=== PATIENT | male | born 1945 | race Caucasian/White ===

== ENCOUNTER → 2016-10-06 | Outpatient (CLI) | payer MEDICARE, OTHER ==
[2015-05-08 15:09] VITALS: BP 116/75
[~2016-10-06] MED LIST: ATOR20TA58 PO; CHOL10002 PO; FERR325C PO; HYDR-2678 PO; IOHEXOL 180 MG/ML 10 ML VIAL. ONE; MULT-208 PO; NAPR500T8 PO; OMEP20CA9 PO; OXYC1TAB7 PO; [UNRECOGNIZED DRUG - CODE] TP; methylPREDNISolone ACETATE 40 MG/ML VIAL. ONE; methylPREDNISolone ACETATE 80 MG/ML VIAL. ONE
--- NOTE | 2016-10-07 02:32 | PAIN ---
DATE OF SERVICE: 10/06/2016 DIAGNOSES: Lumbar radiculopathy with lumbar degenerative disk disease, lumbar spinal stenosis. HISTORY OF PRESENT ILLNESS: The patient is a 70-year-old male who returns for followup status post lumbar epidural steroid injections x 3, most recently seen on 06/02/2016. The patient did very well with about a 75-80% improvement, but only for a few weeks. The patient reports the pain returned fairly quickly, still in the low back, bilateral lower extremities, slightly worse on the right than the left with tingling, burning, stabbing pain that sharp, constant and severe, becoming more constant with time, worse with walking and standing, better with sitting or lying down, awakens him from sleep; however, if he lies on his right side for more than about twice at night, the patient reports his pain is a 9 on a scale of 10 at its worse, it is 6 currently. The patient has had several injections in the past, also physical therapy and chiropractic. Pain gets better with the injections, but then returns after several weeks. The patient reports no new motor or sensory deficits, no new bowel or bladder incontinence or other complaints. PHYSICAL EXAMINATION: VITAL SIGNS: The patient's blood pressure 152/101, pulse 74, respirations 18, temperature 98.1 degrees Fahrenheit, height is 5 feet 8 inches, weight 166 pounds. GENERAL: The patient is awake, alert, oriented, appropriate, very pleasant demeanor. The patient accompanied by his spouse. HEENT: Head shows normocephalic, atraumatic. Extraocular movements are intact and symmetrical. Oral cavity, mucous membranes are moist and pink. Dentition is intact. NECK: Shows anterior throat supple without palpable lymphadenopathy noted. Swallow reflex is symmetrical. CHEST: Shows normal on inspection. Breath sounds are clear to auscultation bilaterally. HEART: Shows S1 and S2 clear. ABDOMEN: Soft, nontender, nondistended. No palpable organomegaly. No rebound or guarding demonstrated. BACK: Shows spine grossly in the midline. Lumbar paraspinous muscle shows some moderate tenderness with palpation, but only diffusely and symmetrical without evidence of atrophy or hypertrophy. The patient shows full rotational motion of the lumbar spine, both laterally as well as extension and flexion without difficulty. EXTREMITIES: Lower extremities showed deep tendon reflexes at 2+ in the patellar, 1+ tendo-calcaneus tendons and are equal. Motor exam is strong with 5/5 dorsiflexion, extension, quadriceps and hamstring flexion. Options were discussed with the patient and the patient's old chart was reviewed as his current medication regimen updated. Current review of systems updated today as well. We will proceed with a lumbar epidural steroid injection today as the first in this series with fluoroscopic guidance. Risks were again discussed including, but not limited to bleeding, infection, possibility of epidural hematoma, subsequent neurological compromise, dural puncture, headaches, spinal cord and/or nerve damage, side effects of steroid medication and poor results regarding pain control. The patient understands and wishes to proceed. The patient will return to clinic in approximately 2 weeks for followup, was counseled on return appointment, activity level and side effects to be aware of. DIAGNOSIS: Lumbar radiculopathy with lumbar degenerative disk disease, lumbar spinal stenosis. PROCEDURE: Lumbar epidural steroid injection in translaminar approach at the L4-L5 level using C-arm fluoroscopic guidance under sterile prep and drape using a local anesthetic. Medications injected are 120 mg Depo-Medrol plus 10 mL of preservative-free normal saline and 2 mL Isovue for contrast. CONDITION AT DISCHARGE: Stable. The patient tolerated procedure well, had no complications. FREDDY ROTH MD DR: KETURAH/danuta JOB#: [id number] / [id number]
== END | disposition home or self-care (01) ==
LOC: PNCL 09:12
PROVIDERS: ATTEND Anesthesiology
DX: M51.16 Intervertebral disc disorders with radiculopathy, lumbar region (principal); M48.06 Spinal stenosis, lumbar region; K21.9 Gastro-esophageal reflux disease without esophagitis; E78.00 Pure hypercholesterolemia, unspecified; M19.90 Unspecified osteoarthritis, unspecified site; D64.9 Anemia, unspecified; Z72.0 Tobacco use
CPT/HCPCS: 62323; J1030; J1040

== ENCOUNTER → 2016-10-19 | Outpatient (CLI) | payer MEDICARE, OTHER ==
[2015-05-08 15:09] VITALS: BP 116/75
--- NOTE | 2016-10-20 05:37 | PAIN ---
DATE OF SERVICE: 10/19/2016 PROGRESS NOTE FOR PAIN CLINIC DIAGNOSIS: Lumbar radiculopathy with lumbar degenerative disk disease, lumbar spinal stenosis. HISTORY OF PRESENT ILLNESS: The patient is a 70-year-old male who returns for followup status post lumbar epidural steroid injection x 1. The patient reports about 50% improvement, much better for the first week about 75% improvement, but now has come back to some extent in the low back and bilateral lower extremities, slightly worse on the right than the left, but present bilaterally. The patient reports otherwise he is doing fairly well. It is rated at a 7 on a scale of 10 at its most, 5 at its least and about a 6 on average. The patient reports it has been awakening him from sleep about every 5-6 hours at night, he has to reposition or get out of bed, change positions, take pain medication to decrease the pain, otherwise doing well, increasing his activity with greater ease and comfort, especially in the first week or so, but now the pain is returning in his low back, is described as tingling, burning and aching, as radiating pain to the lower extremities, again slightly worse on the right. The patient reports no new motor or sensory deficits, no new bowel or bladder incontinence or other complaints. PHYSICAL EXAMINATION: VITAL SIGNS: The patient's blood pressure is 140/109, pulse 74, respirations are 20, temperature is 97.8 degrees Fahrenheit, height is 5 feet 8 inches, weight is 164 pounds. GENERAL: The patient is awake, alert, oriented, appropriate, has a very pleasant demeanor. HEENT: Shows normocephalic, atraumatic. Extraocular movements are intact, symmetrical. Oral cavity, his mucous membranes are moist and pink. NECK: Shows anterior throat supple. CHEST: Shows breath sounds clear to auscultation bilaterally. HEART: Shows S1 and S2 clear. ABDOMEN: Soft, nontender, nondistended. BACK: Shows spine grossly in the midline. Lumbar paraspinous musculature shows symmetrical on inspection, with palpation shows some pmoj-sf-yooaeksj tenderness in the low lumbar distribution only, but only diffusely only in the paraspinous regions without radiation and only diffuse, no tenderness over the sacrum or sacroiliac regions. The patient does show good rotational motion of the lumbar spine, but significant tenderness with extension, but not with forward flexion. Right and left lateral rotation is intact with greater than 10 degrees without pain reported. LOWER EXTREMITIES: Show deep tendon reflexes at 2+ in the patellar and 1+ tendo calcaneus tendons, are equal. Motor exam is strong with 5/5 dorsiflexion and extension. PLAN: Options were discussed with the patient. The patient's old chart was reviewed as was his current medication regimen and updated. Current review of systems updated today as well. We will proceed with a second lumbar epidural steroid injection today in this series with fluoroscopic guidance. Risks were again discussed including, but not limited to bleeding, infection, possibility of epidural hematoma, subsequent neurological compromise, dural puncture, headaches, spinal cord and/or nerve damage, side effects of steroid medication and poor results regarding pain control. The patient understands and wishes to proceed. The patient will return to the clinic in approximately 2 weeks for followup, was counseled on his return appointment, activity level and side effects to be aware of. DIAGNOSIS: Lumbar radiculopathy with lumbar degenerative disk disease, lumbar spinal stenosis. PROCEDURE: Lumbar epidural steroid injection in translaminar approach at the L4-L5 level using C-arm fluoroscopic guidance under sterile prep and drape using local anesthetic. MEDICATIONS INJECTED: 120 mg Depo-Medrol plus 10 mL of preservative-free normal saline and 2 mL of Isovue for contrast. CONDITION AT DISCHARGE: Stable. The patient tolerated the procedure well, had no complications. The patient will follow up in approximately 2 weeks. I also discussed the patient's blood pressure is slightly elevated and has been elevated on previous visits as well, but not to this level. Will recommend following up with his primary care physician regarding this as well. The patient was counseled as to his activity level as well as side effects to be aware of with the injection today also. FREDDY ROTH MD DR: KETURAH/danuta JOB#: [id number] / [id number]
== END | disposition home or self-care (01) ==
LOC: PNCL 08:35
PROVIDERS: ATTEND Anesthesiology
DX: M51.16 Intervertebral disc disorders with radiculopathy, lumbar region (principal); M48.06 Spinal stenosis, lumbar region; E78.00 Pure hypercholesterolemia, unspecified; K21.9 Gastro-esophageal reflux disease without esophagitis; M19.90 Unspecified osteoarthritis, unspecified site; Z87.39 Personal history of other diseases of the musculoskeletal system and connective tissue; Z72.0 Tobacco use; D64.9 Anemia, unspecified; K82.9 Disease of gallbladder, unspecified
CPT/HCPCS: 62323; J1030; J1040

== ENCOUNTER → 2016-11-20 | Outpatient (CLI) | payer MEDICARE, OTHER ==
[2015-05-08 15:09] VITALS: BP 116/75
[~2016-11-20] MED LIST changes: -IOHEXOL 180 MG/ML 10 ML VIAL. ONE; -methylPREDNISolone ACETATE 40 MG/ML VIAL. ONE; -methylPREDNISolone ACETATE 80 MG/ML VIAL. ONE
--- NOTE | 2016-11-20 16:47 | KCIC ---
MRI of the lumbar spine without contrast 11/20/2016 CLINICAL HISTORY: Low back pain which radiates down both hips for the last year. TECHNIQUE: Unenhanced T1-weighted and T2-weighted sagittal and axial and inversion recovery sagittal images of the lumbar spine were obtained. FINDINGS: Minimal S-shaped curvature of the thoracolumbar spine is seen. Degenerative signal changes are seen involving all of the disks of the lumbar spine. Degenerative signal changes are seen within the marrow surrounding these discs. Loss of height of the L4-5 disc is noted. The conus medullaris is normal morphology, position, and signal characteristics. The L1-2 disc space is within normal limits. At the L3-4 disc space there is a mild generalized disc bulge. This is eccentric to the left. Degenerative changes are seen involving the facet joints bilaterally. There is mild ligamentum flavum hypertrophy bilaterally. These findings when combined result in mild central spinal canal stenosis. No neural foraminal stenosis is seen. At the L3-4 disc space there is a mild generalized disc bulge. Degenerative changes are seen involving the facet joints bilaterally. There is mild ligamentum flavum hypertrophy bilaterally. There is prominence of the posterior epidural fat. These findings when combined result in mild central spinal canal stenosis. At the L4-5 disc space there is a mild generalized disc bulge. Superimposed on this disc bulge is a central/right paracentral focal disc herniation. This measures 4 mm in AP diameter. Degenerative changes are seen involving the facet joints bilaterally. There is moderate ligamentum flavum hypertrophy bilaterally. These findings when combined result in moderate to severe right greater than left central spinal canal stenosis. No neural foraminal stenosis is seen. At the L5-S1 disc space there is a minimal generalized disc bulge. Degenerative changes are seen involving the facet joints bilaterally. These findings when combined do not result in significant central spinal canal or neural foraminal stenosis. IMPRESSION: The changes of degenerative disc disease are seen throughout the lumbar spine. These findings result in mild central spinal canal stenosis at L2-3 and L3-4 and moderate to severe right greater than left central spinal canal stenosis at L4-5. No neural foraminal stenosis is seen. Electronically signed by: Jimenez Lu MD (11/20/2016 4:44 PM) [facility]
== END | disposition home or self-care (01) ==
LOC: KCIC MRI 15:47
PROVIDERS: ATTEND Neurological Surgery
DX: M51.36 Other intervertebral disc degeneration, lumbar region (principal)
CPT/HCPCS: 72148

== ENCOUNTER → 2016-12-02 | Outpatient (CLI) | payer MEDICARE, OTHER ==
[2015-05-08 15:09] VITALS: BP 116/75
[~2016-12-02] MED LIST changes: +IOHEXOL 180 MG/ML 10 ML VIAL. ONE; +methylPREDNISolone ACETATE 40 MG/ML VIAL. ONE; +methylPREDNISolone ACETATE 80 MG/ML VIAL. ONE
--- NOTE | 2016-12-02 23:00 | PAIN ---
DATE OF SERVICE: 12/02/2016 DIAGNOSIS: Lumbar radiculopathy, lumbar degenerative disk disease, lumbar spinal stenosis. HISTORY OF PRESENT ILLNESS: The patient is a 71-year-old male who returns for followup status post lumbar epidural steroid injections x 2, last seen on 10/19/2016. The patient reports he did very well with about 50% improvement in his low back, right lower extremity pain. The pain is returning now to a near baseline levels. The patient is still planning for lumbar decompressive surgery on 12/31/2016. The patient reports the pain now is a 7 on a scale of 10 at its worst, is at 5 currently. The patient reports it is achy, shooting, tingling, stabbing, and constant in the low back and lower extremities, again worse on the right side than the left with anterior lateral thigh, posterior thigh and medial lower leg pain radiating once again. The patient reports it wakes him up from sleep occasionally, but not every night. If he repositioned or takes pain medications, he is able to get back to sleep. PHYSICAL EXAMINATION: VITAL SIGNS: Today, the patient's blood pressure 133/88, pulse 77, respirations 20, temperature 98.1 degrees Fahrenheit. Weight is 163 pounds. GENERAL: The patient is awake, alert and oriented, appropriate, is a very pleasant demeanor. HEENT: Exam shows normocephalic, atraumatic. Extraocular movements are intact and symmetrical. Oral cavity, mucous membranes are moist and pink. Dentition is intact. NECK: Shows the anterior throat supple without palpable lymphadenopathy noted. Swallow reflex is symmetrical. CHEST: Normal on inspection. Breath sounds are clear to auscultation bilaterally. CARDIOVASCULAR: S1, S2, clear. ABDOMEN: Soft, nontender, nondistended, no palpable organomegaly. No rebound or guarding demonstrated. BACK: Shows spine grossly in the midline. Lumbar paraspinal muscle shows some ymqo-wv-oyannpja tenderness diffusely in the lower lumbar distribution, but without radiation and without asymmetry. The patient's back shows good rotation of motion both laterally as well as extension and flexion. EXTREMITIES: Lower extremities show deep tendon reflexes are 2+ in the patellar, 1+ tendo-calcaneus tendons are equal. Motor exam is strong with 5/5 dorsiflexion, extension, quadriceps and hamstring flexion. Options were discussed with the patient. The patient's old chart was reviewed as his current medication regimen updated. Current review of systems was updated today as well. We will proceed with a third in the series of lumbar epidural steroid injection today with fluoroscopic guidance. Risks were again discussed including, but not limited to, bleeding, infection, possibility of epidural hematoma and subsequent neurologic compromise, dural puncture, headaches, spinal cord and/or nerve damage, side effects of steroid medications and poor results regarding pain control. The patient understands and wishes to proceed. The patient will return to clinic in approximately 2 weeks for followup, was counseled on return appointment, activity level and side effects to be aware of. DIAGNOSES: Lumbar radiculopathy with lumbar spinal stenosis, lumbar degenerative disk disease. PROCEDURE: Lumbar epidural steroid injection in translaminar approach at L4-L5 level using C-arm fluoroscopic guidance under sterile prep and drape using local anesthetic. MEDICATIONS INJECTED: Total of 120 mg of Depo-Medrol plus 10 mL of preservative-free normal saline and 2 mL of Isovue for contrast. CONDITION AT DISCHARGE: Stable. The patient tolerated procedure well, had no complications. FREDDY ROTH MD DR: KETURAH/danuta JOB#: [id number] / [id number]
== END | disposition home or self-care (01) ==
LOC: PNCL 09:36
PROVIDERS: ATTEND Anesthesiology
DX: M51.16 Intervertebral disc disorders with radiculopathy, lumbar region (principal); M48.06 Spinal stenosis, lumbar region; E78.00 Pure hypercholesterolemia, unspecified; K21.9 Gastro-esophageal reflux disease without esophagitis; M19.90 Unspecified osteoarthritis, unspecified site; Z87.39 Personal history of other diseases of the musculoskeletal system and connective tissue; Z72.0 Tobacco use
CPT/HCPCS: 62323; J1030; J1040

== ENCOUNTER → 2016-12-25 | Outpatient (CLI) | payer MEDICARE, OTHER ==
[2015-05-08 15:09] VITALS: BP 116/75
[~2016-12-25] MED LIST changes: +DOCU-109 PO; -IOHEXOL 180 MG/ML 10 ML VIAL. ONE; +METH-38 PO; -methylPREDNISolone ACETATE 40 MG/ML VIAL. ONE; -methylPREDNISolone ACETATE 80 MG/ML VIAL. ONE
--- NOTE | 2016-12-25 15:01 | EKG ---
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
[2016-12-25 15:32] LABS: BASO # 0.1 x10^3/uL (0.0-0.2); BASO % 1 % (0-3); EOS % 4 % (0-3); HEMATOCRIT 42.8 % (39.0-53.0); HEMOGLOBIN 14.1 g/dL (13.0-17.5); LYMPH % 29 % (24-48); MEAN CORPUSCULAR HEMOGLOBIN 32 pg (25-35); MEAN CORPUSCULAR HGB CONC 33 g/dL (31-37); MEAN CORPUSCULAR VOLUME 95 fL (79-100); MONO % 9 % (0-9); NEUT % 57 % (31-73); PLATELET COUNT 150 x10^3/uL (140-400); RED BLOOD COUNT 4.48 x10^6/uL (4.30-5.70); RED CELL DISTRIBUTION WIDTH 15.2 % (11.5-14.5); WHITE BLOOD COUNT 6.8 x10^3/uL (4.0-11.0)
[2016-12-25 15:49] LABS: ALBUMIN 3.5 g/dL (3.4-5.0); ALBUMIN/GLOBULIN RATIO 1.2 (1.0-1.7); CALCIUM 8.6 mg/dL (8.5-10.1); CREATININE 0.9 mg/dL (0.7-1.3); GFR 83.7; POTASSIUM 3.7 mmol/L (3.5-5.1); TOTAL BILIRUBIN 0.9 mg/dL (0.2-1.0); TOTAL PROTEIN 6.5 g/dL (6.4-8.2)
== END | disposition home or self-care (01) ==
LOC: SURGPAT 13:46
PROVIDERS: ATTEND Neurological Surgery
DX: R62.7 Adult failure to thrive (principal)
CPT/HCPCS: 36415; 80053; 85025; 87641; 93005

== ENCOUNTER 2016-12-31 07:12 | Day surgery (SDC) | payer MEDICARE, OTHER ==
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
[~2016-12-31] VITALS: Ht 203.2 cm; Wt 73.9 kg
[~2016-12-31 07:12] MED LIST changes: +BACITRACIN 50,000 UNIT in IV NORMAL SALINE 1000ML BAG 1,000 ML IRR ONE; -DOCU-109 PO; +GELATIN SPONGE SIZE 100. ONE; +HYDROmorphone 2 MG/ML VIAL IV PRN; +IV RINGERS,LACTATED 1000ML 1,000 ML IV SCH; +KETOROLAC 60 MG/2 ML INJ FOR OR. ONE; +LIDOCAINE 1% 1 ML SYRINGE. ID PRN; -METH-38 PO; +MORPHINE SULFATE 2 MG/ML DISP.SYRIN. IV PRN; +ONDANSETRON PF 4 MG/2 ML VIAL. IV PRN; +PROCHLORPERAZINE 10 MG/2 ML VIAL. IV PRN; +THROMBIN TOPICAL 20,000 UNIT SPRAY.SYRN KIT TP ONE; +fentaNYL PF VIAL 100 MCG/2 ML VIAL IV PRN
[2016-12-31] MEDS ORDERED: PHENYLEPHRINE 10 MG/ML VIAL. ONE (07:45)
[2016-12-31] MEDS ORDERED: PROPOFOL 20 ML IV ONE (07:45)
[2016-12-31] MEDS ORDERED: PROPOFOL 50 ML IV ONE (07:45)
[2016-12-31] MEDS ORDERED: LIDOCAINE 2% PF Vial for OR 5 ML VIAL. ONE (07:45)
[2016-12-31] MEDS ORDERED: DEXAMETHASONE SOD PHOS 20 MG/5 ML VIAL. ONE (07:45)
[2016-12-31] MEDS ORDERED: ONDANSETRON PF 4 MG/2 ML VIAL. ONE (07:45)
[2016-12-31] MEDS ORDERED: MIDAZOLAM HCL/PF 2 MG/2 ML VIAL. ONE (07:46)
[2016-12-31] MEDS ORDERED: REMIFENTANIL 2 MG VIAL. IV ONE (07:46)
[2016-12-31] MEDS ORDERED: MINERAL OIL/PETROLATUM,WHITE OPHTH OINT 3.5GM TUBE. ONE (07:46)
[2016-12-31] MEDS ORDERED: 0.9 % SODIUM CHLORIDE 50 ML VIAL. IJ ONE (07:47)
[2016-12-31] MEDS ORDERED: ROCURONIUM 100 MG/10 ML VIAL. ONE (08:10)
[2016-12-31] MEDS ORDERED: GLYCOPYRROLATE 1 MG/5 ML VIAL. ONE (09:04)
[2016-12-31] MEDS ORDERED: BUPIVAC MPF-EPI 0.5%-1:200000 30 ML VIAL. INJ ONE (09:39)
[2016-12-31] MEDS ORDERED: DESFLURANE > 120 MINUTES IH ONE (10:04)
--- NOTE | 2016-12-31 10:56 | DISCH ---
DISCHARGE INSTRUCTIONS Condition on Discharge Condition on Discharge: Stable Activity After Discharge Activity Instructions for Disc: Activity as tolerated, Avoid exertion Other activity instructions: no driving for a week Bathing Instructions: Shower-keep dressing dry Lifting Instructions after Dis: No heavy lifting, No pulling or pushing, Do not lift >10 pounds Driving Instructions after Dis: Do not drive Diet after Discharge Additional Diet Restrictions: resume home diet Wound Incision Care Wound/Incision Care: Ice to area for comfort Other wound/incision instructi: may remove dressing in 48 hrs if dry then may shower- no soaking Contacting the after DC Call your doctor for: Concerns you may have Follow-Up Follow up with: Dr. Jacob's nurse in 2 weeks [phone] MARYBETH JACOB MD Dec 31, 2016 10:55
[2016-12-31] MEDS ORDERED: DOCU-109 PO (10:59)
[2016-12-31] MEDS ORDERED: METH-38 PO (10:59)
[2016-12-31] MEDS ORDERED: fentaNYL PF VIAL 100 MCG/2 ML VIAL ONE (11:06)
[2016-12-31] MEDS: fentaNYL PF VIAL 100 MCG/2 ML VIAL IV PRN ×2 (11:12→11:26)
[2016-12-31] MEDS ORDERED: oxyCODONE/APAP 5/325 1 TAB TABLET PO ONE (11:45)
--- NOTE | 2016-12-31 11:56 | OP ---
DATE OF SURGERY: 12/31/2016 PREOPERATIVE DIAGNOSES: Lumbar spinal stenosis with lateral recess narrowing and disc bulging L4-L5 with right lumbar radiculopathy. POSTOPERATIVE DIAGNOSES: Lumbar spinal stenosis with lateral recess narrowing and disc bulging L4-L5 with right lumbar radiculopathy. OPERATION PERFORMED: Right direct laminectomy and discectomy, L4-L5. The operation was done with EMG monitoring, fluoroscopy, microscopic dissection. SURGEON: Quique Jacob M.D. WELLNESS RN: TONY Lynch assisted with the surgery. She assisted with the exposure, the microdiscectomy and decompression as well as the closure. OPERATIVE INDICATIONS: The patient is a very pleasant 71-year-old man who developed intractable back and right greater than left leg pain and was found on imaging studies to have the above-mentioned findings. He went through epidural steroid injections and chiropractic treatment without long-term relief. After reviewing the images, I recommended lumbar microsurgery at L4-L5. I discussed with him the surgery and the risks, the technique and the expected postoperative course and he wished to go ahead. DESCRIPTION OF PROCEDURE: Following general endotracheal anesthesia, the patient was positioned prone on the Edenilson table. His lumbar region was prepped and draped in the standard fashion. MELLISA hose and AV impulse boots were applied for DVT prophylaxis. A microscope was draped. Fluoroscopy was draped and brought into field. Monitoring was established. Ancef 2 grams was given less than 1 hour prior to initiation of surgery. Using fluoroscopic guidance, an incision was made directly over the L4-L5 interspace. I dissected down through the skin and subcutaneous tissue and reflected the paraspinal muscles and brought in a [place] micro disc retractor. I brought in a high speed air drill and using the microscope with microscopic technique, I burred down a generous hemilaminotomy. I then tilted the table away from wv and drilled across the midline and decompressed to the right side. I then began to trim with the thickened ligamentum flavum, working from medial to lateral. I did drill a foraminotomy and then peeled away the ligamentum flavum exposing the exiting root. There was a significant disc bulge, which was soft and I incised the annulus and ligament laterally and gently retracted the root medially. There were few epidural veins, which were coagulated and divided with micro scissors. I used the micropituitary followed by the Gus pituitary and began to work from a lateral to medial and removed chronic herniated disc material which was scarred to the undersurface of the annulus and I also removed some of the heaped up bone and thickened endplate material and began to work medially. I pulled multiple fragments and out from the disc space and a few subligamentous pieces of disc and as I worked, the region became very well decompressed. I enlarged my foraminotomy. I further undercut the midline by tilting the bed away again and fully decompress the entire region, I did use a bone wax intermittently for any bone bleeding and the bipolar cautery was used judiciously for any epidural veins. I irrigated copiously, removed the retractor, obtained hemostasis in the muscle, irrigated again and then I closed the wound in layers with absorbable suture and skin was closed with 4-0 subcuticular stitch. The operation went very well and the patient taken in stable condition to recovery. I was quite pleased with the surgery. QUIQUE JACOB MD DR: PADMAJA/danuta JOB#: [id number] / [id number] ALFRED
[2016-12-31 12:24] VITALS: BP 111/73
--- NOTE | 2017-01-02 00:02 | PATHOLOGY ---
PATHOLOGY REPORT * * * * * * * * FINAL DIAGNOSIS: "Lumbar decompression and disc", removal: - Fragments of fibrocartilage with degenerative changes. - Fragments of unremarkable fibromuscular tissue and bone. ([facility]/db; 01/01/2017) REPORT ELECTRONICALLY SIGNED BY: Aline Pace M.D. DATE/TIME: 01/01/2017 15:25 * * * * * * * * GROSS PATHOLOGY: Received in formalin labeled "Bev Le, lumbar decompression and disc" are multiple segments of loyola, rubbery, and gritty tissue admixed with bone. The specimen measures 2.7 x 1.5 x 0.6 cm in aggregate dimensions. The tissue is submitted representatively in cassette A1, following decalcification. ([facility]; 12/31/16) INITIAL CPT CODE(S): A; 00716 Professional services performed by [facility] [place] [address] Technical services performed by [facility] at [address] [place] [address], [facility] [address], [place] [address]. SPECIMEN(S) RECEIVED: A.Lumbar decompression and disc CLINICAL HISTORY: Lumbar stenosis, radiculopathy PATIENT: BEV LE /AGE: 6 1945 (Age: 71) PATIENT #: [id number] ALT CASE #: SPECIMEN COLLECTION DATE: 12/31/2016 SPECIMEN RECEIVED DATE: 12/31/2016 [facility] - [address] [place] [address] - PHONE: [phone] * * * END OF REPORT * * *
== END 2016-12-31 12:59 | disposition home or self-care (01) ==
LOC: SURG 07:12
PROVIDERS: ATTEND Neurological Surgery
DX: M51.16 Intervertebral disc disorders with radiculopathy, lumbar region (principal); M48.06 Spinal stenosis, lumbar region; E78.00 Pure hypercholesterolemia, unspecified; K21.9 Gastro-esophageal reflux disease without esophagitis; M19.91 Primary osteoarthritis, unspecified site; Z72.89 Other problems related to lifestyle; Z86.69 Personal history of other diseases of the nervous system and sense organs; Z87.891 Personal history of nicotine dependence
CPT/HCPCS: 63030; 76000; 97161; J0690; J1100; J1885; J2250; J2405; J2704; J3010; J3490; J7030; 88304; 88311; J2001

== ENCOUNTER → 2017-03-24 | Outpatient (CLI) | payer MEDICARE, OTHER ==
[~2017-03-24] MED LIST changes: -BACITRACIN 50,000 UNIT in IV NORMAL SALINE 1000ML BAG 1,000 ML IRR ONE; +DOCU-109 PO; -GELATIN SPONGE SIZE 100. ONE; -HYDROmorphone 2 MG/ML VIAL IV PRN; -IV RINGERS,LACTATED 1000ML 1,000 ML IV SCH; -KETOROLAC 60 MG/2 ML INJ FOR OR. ONE; -LIDOCAINE 1% 1 ML SYRINGE. ID PRN; +METH-38 PO; -MORPHINE SULFATE 2 MG/ML DISP.SYRIN. IV PRN; -ONDANSETRON PF 4 MG/2 ML VIAL. IV PRN; -PROCHLORPERAZINE 10 MG/2 ML VIAL. IV PRN; -THROMBIN TOPICAL 20,000 UNIT SPRAY.SYRN KIT TP ONE; -fentaNYL PF VIAL 100 MCG/2 ML VIAL IV PRN
--- NOTE | 2017-03-24 12:09 | KCIC ---
History: Back pain. Comparison: MR lumbar spine November 20, 2016. Findings: Lateral flexion and lateral extension views of the lumbar spine were obtained. There is no spondylolisthesis with flexion or extension. Multilevel degenerative disc disease is seen. Impression: 1. Multilevel degenerative disc disease. 2. No evidence of spondylolisthesis. Electronically signed by: Todd Bynum MD (03/24/2017 12:06 PM) [id number]
== END | disposition home or self-care (01) ==
LOC: KCIC 11:30
PROVIDERS: ATTEND Neurological Surgery
DX: M51.36 Other intervertebral disc degeneration, lumbar region (principal)
CPT/HCPCS: 72100

== ENCOUNTER → 2017-06-25 | Outpatient (CLI) | payer MEDICARE ==
[~2017-06-25] MED LIST changes: -ATOR20TA58 PO; +BUPIVACAINE MPF 0.25% 10 ML VIAL.; -CHOL10002 PO; -DOCU-109 PO; -FERR325C PO; -HYDR-2678 PO; +IOHEXOL 180 MG/ML 10 ML VIAL.; -METH-38 PO; -MULT-208 PO; -NAPR500T8 PO; -OMEP20CA9 PO; -OXYC1TAB7 PO; -[UNRECOGNIZED DRUG - CODE] TP; +methylPREDNISolone ACETATE 40 MG/ML VIAL.; +methylPREDNISolone ACETATE 80 MG/ML VIAL.
== END ==
LOC: PNCL 09:58
DX: M47.897 Other spondylosis, lumbosacral region (principal); M47.817 Spondylosis without myelopathy or radiculopathy, lumbosacral region (principal); M48.061 Spinal stenosis, lumbar region without neurogenic claudication; M51.16 Intervertebral disc disorders with radiculopathy, lumbar region; E78.00 Pure hypercholesterolemia, unspecified; K21.9 Gastro-esophageal reflux disease without esophagitis; M19.90 Unspecified osteoarthritis, unspecified site; Z87.891 Personal history of nicotine dependence; M54.5 Low back pain; Z98.890 Other specified postprocedural states; Z86.2 Personal history of diseases of the blood and blood-forming organs and certain disorders involving the immune mechanism
CPT/HCPCS: 64493; 64494; J1030; J1040; J3490; Q9965

== ENCOUNTER → 2017-07-07 | Outpatient (CLI) | payer MEDICARE | LOC: PNCL 09:06 | DX: M51.16 Intervertebral disc disorders with radiculopathy, lumbar region (principal); M48.061 Spinal stenosis, lumbar region without neurogenic claudication; M47.817 Spondylosis without myelopathy or radiculopathy, lumbosacral region | CPT/HCPCS: 64493; 64494; J1030; J1040; J3490; Q9965 ==

== ENCOUNTER → 2017-09-02 | Outpatient (CLI) | payer MEDICARE ==
[~2017-09-02] MED LIST changes: -IOHEXOL 180 MG/ML 10 ML VIAL.; +LIDOCAINE 1% PF 2 ML VIAL.; +LIDOCAINE 2% PF Vial for OR 5 ML VIAL.
== END | disposition home or self-care (01) ==
LOC: PNCL 13:11
DX: M51.16 Intervertebral disc disorders with radiculopathy, lumbar region (principal); M48.061 Spinal stenosis, lumbar region without neurogenic claudication; M47.817 Spondylosis without myelopathy or radiculopathy, lumbosacral region; E78.00 Pure hypercholesterolemia, unspecified; K21.9 Gastro-esophageal reflux disease without esophagitis; M19.90 Unspecified osteoarthritis, unspecified site; Z72.89 Other problems related to lifestyle; Z98.890 Other specified postprocedural states; Z87.891 Personal history of nicotine dependence; D64.9 Anemia, unspecified
CPT/HCPCS: 64635; 64636; J1030; J1040; J3490

== ENCOUNTER → 2017-09-30 | Outpatient (CLI) | payer MEDICARE, OTHER | END | disposition home or self-care (01) | LOC: PNCL 10:35 | DX: M51.16 Intervertebral disc disorders with radiculopathy, lumbar region (principal); M48.061 Spinal stenosis, lumbar region without neurogenic claudication; M47.897 Other spondylosis, lumbosacral region | CPT/HCPCS: G0463 ==

== ENCOUNTER → 2017-12-13 | Outpatient (CLI) | payer MEDICARE, OTHER ==
[~2017-12-13] MED LIST changes: +ATOR20TA58 PO; -BUPIVACAINE MPF 0.25% 10 ML VIAL.; +CHOL10002 PO; +DOCU-109 PO; +FERR325C PO; +GABA-586 PO; +HYDR-2678 PO; -LIDOCAINE 1% PF 2 ML VIAL.; -LIDOCAINE 2% PF Vial for OR 5 ML VIAL.; +METH-38 PO; +MULT-208 PO; +NAPR500T8 PO; +OMEP20CA9 PO; +OXYC1TAB7 PO; +ZOLPIDEM 5 MG TABLET. PO ONE; +[UNRECOGNIZED DRUG - CODE] TP; -methylPREDNISolone ACETATE 40 MG/ML VIAL.; -methylPREDNISolone ACETATE 80 MG/ML VIAL.
--- NOTE | 2017-12-14 11:54 | SLEEP ---
DATE OF STUDY: 12/13/2017 ATTENDING PHYSICIAN: Dr. Todd Cotto. The patient is a 72-year-old who weighs 167 pounds with a BMI of 25. The patient's [place] score was 6. The patient underwent sleep study at [facility]. This was a diagnostic study. During the night study, the patient spent 433 minutes in bed and slept for 394 minutes with a sleep efficiency of 91%. Sleep latency was 27 minutes with a REM latency of 173 minutes. Overall, sleep architecture showed increased stage 1 sleep, normal stage 2 sleep, increased slow wave, and reduced REM sleep. During the night study, the patient had 23 obstructive apneas, 33 mixed apneas, 12 central apneas and 94 hypopneas. The patient's apnea-hypopnea index was 25 per hour, the supine index of 31 per hour, and the REM index of 76 per hour. EKG monitoring revealed normal sinus rhythm, average heart rate was 76 beats per minute, no sustained arrhythmias were observed. Nocturnal oximetry study revealed an average oxygen saturation of 92%, the lowest of 59%. 90% of time, oxygen saturation remained between 80% and 89%. The desaturation was severe during REM sleep. PLMs were not seen. Due to low AHI, the patient did not meet the split night criteria for CPAP initiation. IMPRESSION: 1. Moderate sleep apnea-hypopnea syndrome with worsening during supine and REM sleep. 2. Nocturnal hypoxia which was worse during REM sleep. This is related to obstructive sleep apnea. 3. No clinically significant PLMs. RECOMMENDATIONS: 1. The patient would benefit from return to the sleep lab for CPAP titration study. 2. Once optimum CPAP pressure is achieved, then follow up in 4-6 weeks to assess compliance with CPAP and to document clinical improvement. 3. 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 4. Caution regarding driving until symptoms of sleep apnea resolve with the above recommendations. NOLVIA JOHNSON MD DR: JONO/danuta JOB#: [id number] / [id number] TODD Gonzalez MD
== END | disposition home or self-care (01) ==
LOC: SLPLAB 18:27
PROVIDERS: ATTEND Family Medicine
DX: G47.33 Obstructive sleep apnea (adult) (pediatric) (principal); G47.34 Idiopathic sleep related nonobstructive alveolar hypoventilation; E78.5 Hyperlipidemia, unspecified; E78.00 Pure hypercholesterolemia, unspecified; K21.9 Gastro-esophageal reflux disease without esophagitis; Z86.2 Personal history of diseases of the blood and blood-forming organs and certain disorders involving the immune mechanism; Z87.891 Personal history of nicotine dependence; Z87.39 Personal history of other diseases of the musculoskeletal system and connective tissue; Z86.69 Personal history of other diseases of the nervous system and sense organs
CPT/HCPCS: 95810

== ENCOUNTER → 2019-03-16 | Outpatient (CLI) | payer MEDICARE, OTHER ==
[~2019-03-16] MED LIST changes: -GABA-586 PO; +GABA300C18 PO; +IOHEXOL 180 MG/ML 10 ML VIAL. ONE; +OMEP20CA10 PO; -OMEP20CA9 PO; -ZOLPIDEM 5 MG TABLET. PO ONE; +methylPREDNISolone ACETATE 40 MG/ML VIAL. ONE; +methylPREDNISolone ACETATE 80 MG/ML VIAL. ONE
--- NOTE | 2019-03-16 13:18 | PAIN ---
DATE OF SERVICE: 03/16/2019 PROGRESS NOTE FOR PAIN CLINIC DIAGNOSES: 1. Lumbar radiculopathy with lumbar spinal stenosis and lumbar degenerative disk disease. 2. Cervical radiculopathy with cervical degenerative disk disease. HISTORY OF PRESENT ILLNESS: The patient is a 73-year-old male who returns for followup status post cervical epidural steroid injection x 1 on 11/21/2018. The patient reports no significant increase or decrease in pain. He has been out of town for several months, but is back now with some significant pain in the base of the neck and especially in the left upper extremity and shoulder, some on the right as well, but mostly on the left side radiating to the upper extremity with the anterior deltoid, anterior biceps into the forearm, which has a warm hot sensation, also aching and tingling with burning and becoming more constant, radiating with activity, no loss of function or weakness of the arm, but significant pain in the base of neck and shoulders, especially on the left side. The patient reports it is an 8 on a scale of 10 at its worst over the past week, 7 on average, 5 at its least and is a 5 today. The patient reports no new motor or sensory deficits, does not generally awaken him from sleep at night. No new motor or sensory changes. PHYSICAL EXAMINATION: VITAL SIGNS: He has blood pressure of 146/100, pulse 76, respirations 18, temperature 98.2 degrees Fahrenheit, height is 5 feet 8 inches, weight is 167 pounds. GENERAL: The patient is awake, alert, oriented, appropriate, very pleasant demeanor. HEENT: Shows normocephalic, atraumatic. Extraocular movements are intact and symmetrical. Oral cavity: Mucous membranes moist and pink. Dentition is intact. NECK: Shows anterior throat supple without palpable lymphadenopathy noted. Swallow reflex symmetrical. CHEST: Shows normal on inspection. Breath sounds are clear to auscultation bilaterally. HEART: Shows S1, S2 clear. No murmurs auscultated. ABDOMEN: Soft, nontender, nondistended. No palpable organomegaly is noted. No rebound or guarding demonstrated. BACK: Shows spine grossly in the midline. Normal-appearing thoracic kyphosis and cervical lordotic curvature. Cervical paraspinous muscle shows symmetrical on inspection and on palpation shows some moderate tenderness diffusely bilaterally, but only diffusely in the inferior aspect of the cervical paraspinous musculature and superior medial trapezius bilaterally, more on the left than the right. Full rotational motion is maintained both laterally greater than 45 degrees closer to 90 degrees as well as full extension, full forward flexion without significant difficulty. EXTREMITIES: Upper extremities show deep tendon reflexes at 2+ in the biceps and triceps tendons. Motor exam is approximately 5/5 with digital media sales consultant strength bilaterally and 4/5 with left biceps and tricep flexion and 5/5 on the right. Peripheral pulses are 2+ radial. No peripheral edema is noted bilaterally. Options were discussed with the patient. The patient's old chart was reviewed as his current medication regimen updated. Current review of systems updated today as well. We will proceed with a cervical epidural steroid injection today as a first in the series with fluoroscopic guidance. Risks were again discussed including, but not limited to bleeding, infection, possibility of epidural hematoma, subsequent neurological compromise, dural puncture, headaches, spinal cord and/or nerve damage, side effects of steroid medication and poor results regarding pain control. The patient understands and wished to proceed. The patient will return to clinic in approximately 2 weeks for followup. She was counseled on return appointment, activity level and side effects to be aware. I will also order MRI scan of the cervical spine today if he has not had one of cervical spine. He has significant radicular symptoms in the left upper extremity. DIAGNOSIS: Cervical radiculopathy with cervical degenerative disk disease. PROCEDURE: Cervical epidural steroid injection, translaminar approach C6-C7 level using C-arm fluoroscopic guidance under sterile prep and drape using local anesthetic. MEDICATION INJECTED: A total of 120 mg of Depo-Medrol plus 5 mL of preservative-free normal saline and 2 mL of contrast. CONDITION AT DISCHARGE: Stable. The patient tolerated procedure well, had no complications. FREDDY ROTH MD DR: KETURAH/danuta JOB#: [id number] / [id number]
== END ==
LOC: PNCL 09:07
PROVIDERS: ATTEND Anesthesiology
DX: M50.123 Cervical disc disorder at C6-C7 level with radiculopathy (principal); M51.16 Intervertebral disc disorders with radiculopathy, lumbar region; M48.061 Spinal stenosis, lumbar region without neurogenic claudication
CPT/HCPCS: 62321; J1030; J1040; Q9965

== ENCOUNTER → 2019-03-20 | Outpatient (CLI) | payer MEDICARE, OTHER ==
[~2019-03-20] MED LIST changes: -IOHEXOL 180 MG/ML 10 ML VIAL. ONE; -methylPREDNISolone ACETATE 40 MG/ML VIAL. ONE; -methylPREDNISolone ACETATE 80 MG/ML VIAL. ONE
--- NOTE | 2019-03-20 09:12 | KCIC ---
MRI Cervical Spine Without Contrast History: Cervical radiculopathy, neck pain, pain in the upper extremities bilaterally Technique: Multiplanar, multi sequential noncontrast MR imaging was performed of the cervical spine. Comparison: None Findings: There is nonexpansile T2 and STIR hyperintense signal of the cervical cord more eccentric to the left at C5 through C6-7 at which there is relative thinning of the cord, also prominence of the central canal of the cord at C7 about 0.2 cm in axial dimension and at C5-6 about 0.1 cm maximal axial dimension. There is mild dextroscoliosis of the cervical spine. Cervical vertebral body stature is maintained. There is negligible anterior spondylolisthesis at C7-T1. There is mild reversal of the lordotic curvature centered near C4-5. There is fairly advanced degenerative disc disease C4-5, moderate to severe degenerative disc disease C5-6, C6-7, and C3-4. There is prominent edema of the C3 vertebral body extending to the inferior endplate more eccentric to the left, mild edema of the left superior C4 vertebral body extending to the endplate. There is no fluid in the intervertebral disc spaces. There is degenerative endplate change C4-C5 and C6-7. C2-C3: Neural foramina and spinal canal are adequate. C3-C4: There is minimal disc osteophyte complex and bulge. Central canal is minimally narrowed about 9 mm with a somewhat greater degree of mild left lateral recess stenosis. There is left facet and uncovertebral degenerative change. There is fairly severe narrowing of the left neural foramen, right neural foramen minimally narrowed. C4-C5: There is minimal disc osteophyte complex. Central canal is borderline about 10 mm. There is facet degenerative greater on the left. There is bilateral uncovertebral degenerative change. There is likely [id number] narrowing of the right neural foramen, left neural foramen not significantly narrowed. C5-C6: There is disc osteophyte complex and buckling of the ligamentum flavum, central canal narrowed to about 6-7 mm. There is uncovertebral degenerative change bilaterally. There is left greater than right facet degenerative change. There is fairly severe neural foramina compromise bilaterally. C6-C7: There is minimal disc osteophyte complex. Central canal is minimally narrowed about 9 mm. There is bilateral facet degenerative change. There is uncovertebral degenerative change greater on the right. There is fairly severe narrowing of the right neural foramen, mild narrowing on the left. C7-T1: There is very shallow posterior protrusion. There is buckling of the ligamentum flavum. Central canal is borderline about 10 mm. There is bilateral facet degenerative change. Right neural foramen is overall adequate.. There is mild narrowing of the left neural foramen. Impression: 1. There is spinal stenosis on the order of 6 to 7 mm at C5-6, mild spinal stenosis C6-7 and C3-4 as described. 2. There is multilevel significant cervical degenerative disc disease greatest C3-4 through C6-7. There is edema of the C3-4 endplates more eccentric to the left more likely reactive/degenerative in etiology. 3. There is multilevel facet and uncovertebral degenerative change contributing to multilevel cervical neural foramina compromise, more significant narrowing on the right at C6-7, on the left at C3-C4, and bilaterally at C5-6. 4. There is nonexpansile increased T2 and STIR signal of the cord which is more atrophic on the left centered near C5-C6 which is probably due to myelomalacia. 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 Electronically signed by: Santos Ma MD (03/20/2019 9:09 AM) [email or web address]
== END ==
LOC: KCIC MRI 07:45
PROVIDERS: ATTEND Anesthesiology
DX: M50.123 Cervical disc disorder at C6-C7 level with radiculopathy (principal); M54.02 Panniculitis affecting regions of neck and back, cervical region
CPT/HCPCS: 72141

== ENCOUNTER → 2019-04-03 | Outpatient (CLI) | payer MEDICARE, OTHER ==
[~2019-04-03] MED LIST changes: +OMEP-229 PO; -OMEP20CA10 PO
--- NOTE | 2019-04-03 12:59 | KCIC ---
Upper GI with small bowel series HISTORY: Early satiety for one year. No pain. Images: 17 Fluoroscopy time: 6 minutes 11 seconds. FINDINGS: Pulmonary film demonstrates severe retained stool throughout the colon, compatible with constipation. Surgical clips in the right upper quadrant. Thick and thin barium was administered. Mild tertiary contractions are identified in the esophagus. No evidence of fixed filling defect or stricture. Small hiatal hernia is identified. Mild gastroesophageal reflux was observed during the exam. Moderate size diverticulum is identified arising from the medial wall of the descending duodenum. A smaller diverticulum is identified at the duodenal jejunal junction. The stomach and duodenum are difficult to profile, presumably due to overlapping components. No definite filling defect. Transit through the small bowel is slightly delayed, reaching the cecum at 130 minutes. No significant small bowel dilatation. Manual fluoroscopy of small bowel loops during transit demonstrates no fixed or ankle loop. Terminal ileum also appeared within normal limits at fluoroscopy. No abnormal flow pattern is seen. IMPRESSION: 1. Mild gastroesophageal reflux. 2. Tertiary esophageal contractions. 3. Diverticula noted at the duodenum and duodenal jejunal junction. Electronically signed by: Todd Patricio MD (04/03/2019 12:56 PM) [id number]
--- NOTE | 2019-04-03 13:47 | KCIC ---
Complete abdominal ultrasound 04/03/2019 9:00 AM Clinical History: Early satiety Technique: Ultrasound examination of the abdomen was performed, and multiple static images were submitted for review. Comparison: None Findings: The pancreas, aorta, and IVC are probably obscured by gas filled bowel. The gallbladder is surgically absent. The common bile duct measures 5 mm in diameter which is within normal limits. The liver measures 16.2 cm longitudinally. The liver is normal in echotexture. No intrahepatic biliary ductal dilatation is seen. No focal hepatic lesions are identified. The spleen is normal in appearance measuring 10 cm. The bilateral kidneys are normal in appearance without evidence of obstructive uropathy, nephrolithiasis, or focal renal lesion. Right kidney measures 9.4 cm in length. Left kidney measures 10.3 cm in length. Impression: 1. No sonographic evidence of acute intra-abdominal abnormality 2. Prior cholecystectomy Electronically signed by: Rizwan Edouard MD (04/03/2019 1:44 PM) [id number]
== END | disposition home or self-care (01) ==
LOC: KCIC US 08:35
PROVIDERS: ATTEND Family Medicine
DX: K44.9 Diaphragmatic hernia without obstruction or gangrene (principal); K21.9 Gastro-esophageal reflux disease without esophagitis; K57.30 Diverticulosis of large intestine without perforation or abscess without bleeding; K56.41 Fecal impaction; Z90.49 Acquired absence of other specified parts of digestive tract; K22.8 Other specified diseases of esophagus
CPT/HCPCS: 74245; 76700

== ENCOUNTER → 2019-05-03 | Outpatient (CLI) | payer MEDICARE, OTHER ==
[~2019-05-03] MED LIST changes: +IOHEXOL 180 MG/ML 10 ML VIAL. ONE; -OMEP-229 PO; +OMEP20CA16 PO; +methylPREDNISolone ACETATE 40 MG/ML VIAL. ONE; +methylPREDNISolone ACETATE 80 MG/ML VIAL. ONE
--- NOTE | 2019-05-04 01:05 | PAIN ---
DATE OF SERVICE: 05/03/2019 PROGRESS NOTE FOR PAIN CLINIC DIAGNOSES: 1. Lumbar radiculopathy with lumbar spinal stenosis, lumbar degenerative disk disease, lumbar spondylosis. 2. Cervical radiculopathy with cervical degenerative disk disease. HISTORY OF PRESENT ILLNESS: The patient is a 73-year-old male who returns for followup status post previous cervical epidural steroid injection, most recently 03/16/2019, very good results, near 100% improvement, even later that day was doing much better. The patient reports the pain began to return now over the past 3-4 weeks. The patient reports the pain is returning in the base of the neck and shoulders, worse on the left than the right as it was previously, but not as bad as it was prior to the last injection. The patient reports no new motor or sensory deficits, no new changes, but the pain has been returning now, worse with lifting using his upper extremities over his head, repetitive motions, weightbearing, rotational motion of cervical spine and extension of the cervical spine is mildly tender as well. The patient reports it is a 9 on a scale of 10 at its worst in the past week, 7 on average, 5 at its least and is a 5 today. The patient reports it is aching, tingling, radiating, becoming more constant, especially on the left side, but without any loss of strength. PHYSICAL EXAMINATION: VITAL SIGNS: The patient's blood pressure is 143/84, pulse 81, respirations 16, temperature 97.3 degrees Fahrenheit, height is 5 feet 8 inches, weight is 167 pounds. GENERAL: The patient is awake, alert, oriented, appropriate, very pleasant demeanor. HEENT: Shows normocephalic, atraumatic. Extraocular movements are intact and symmetrical. Oral cavity: Mucous membranes moist and pink. Dentition is intact. NECK: Shows anterior throat supple without palpable lymphadenopathy noted. Swallow reflex symmetrical. CHEST: Shows normal on inspection. Breath sounds clear to auscultation bilaterally. HEART: Shows S1, S2 clear. No murmurs auscultated. ABDOMEN: Soft, nontender, nondistended. BACK: Shows spine grossly in the midline, normal-appearing cervical lordotic curvature and thoracic kyphotic curvature, some flattening of lumbar lordotic curvature with well-healed surgical scar noted. Lumbar paraspinous muscle shows symmetrical on inspection. Cervical paraspinous muscle shows symmetrical on inspection, with palpation of the cervical distribution shows moderate tenderness diffusely, bilaterally going diffusely without significant radiation. The patient has good rotational motion of cervical spine, both laterally as well as extension and flexion. The patient's trapezius muscle shows some mild tenderness, more on the left than the right in the superior medial and lateral trapezius, but not with any trigger points or radiation of pain. EXTREMITIES: The patient's upper extremities show deep tendon reflexes 2+ in the biceps, triceps tendons. Motor exam is strong with 5/5 food and beverage checker strength, bicep and tricep flexion on the right and 4 out of 5 with food and beverage checker strength on the left. Peripheral pulses are 2+ radial distribution. No peripheral edema is noted bilaterally. Options were discussed with the patient. The patient's old chart was reviewed as his current medication regimen updated. Current review of systems updated today as well. We will proceed with a third in the series of cervical epidural steroid injection today with fluoroscopic guidance. Risks were again discussed including, but not limited to bleeding, infection, possibility of epidural hematoma, subsequent neurological compromise, dural puncture, headaches, spinal cord and/or nerve damage, side effects of steroid medication and poor results regarding pain control. The patient understands and wished to proceed. The patient will return to clinic in approximately 2 weeks for followup. She was counseled as to return appointment, activity level and side effects to be aware of. DIAGNOSES: Cervical radiculopathy with cervical degenerative disk disease. PROCEDURE: Cervical epidural steroid injection, translaminar approach C6-C7 level using C-arm fluoroscopic guidance under sterile prep and drape using local anesthetic. MEDICATION INJECTED: A total of 120 mg Depo-Medrol plus 5 mL of preservative-free normal saline and 2 mL of contrast. CONDITION AT DISCHARGE: Stable. The patient tolerated procedure well, had no complications. FREDDY ROTH MD DR: KETURAH/danuta JOB#: [id number] / [id number]
== END ==
LOC: PNCL 14:07
PROVIDERS: ATTEND Anesthesiology
DX: M51.16 Intervertebral disc disorders with radiculopathy, lumbar region (principal); M47.816 Spondylosis without myelopathy or radiculopathy, lumbar region; M50.10 Cervical disc disorder with radiculopathy, unspecified cervical region
CPT/HCPCS: 62321; J1030; J1040; Q9965

== ENCOUNTER → 2019-07-20 | Outpatient (CLI) | payer MEDICARE, OTHER ==
--- NOTE | 2019-07-20 09:37 | PAIN ---
DATE OF SERVICE: 07/20/2019 PROGRESS NOTE FOR PAIN CLINIC DIAGNOSES: 1. Lumbar radiculopathy with lumbar spinal stenosis, lumbar degenerative disk disease and lumbar spondylosis. 2. Cervical radiculopathy with cervical degenerative disk disease. HISTORY OF PRESENT ILLNESS: The patient is a 73-year-old male who returns for followup status post both lumbar facet injections as well as cervical epidural injections and lumbar radiofrequency, which was about 80% better still. The patient reports his neck and upper shoulder starting to become more painful at base of neck, bilateral shoulders, right and left and into the upper extremities, but only occasionally into the arms. The patient last had cervical injection on 05/03, did very well with 85% improvement for about 2 months. The patient reports the pain is returning now slowly as described. The patient reports it is 7 on a scale of 10 at its worst, 7 on average, 5 at its least and is a 7 today. The patient reports it is sharp and shooting, becoming more constant with activity, generally has not been awakening him from sleep over the last week or so, has been about every 7 hours. The patient reports he has been increasing his activity, walking, doing work activities, traveling with greater ease and comfort. No new motor or sensory deficits, no new changes. PHYSICAL EXAMINATION: VITAL SIGNS: The patient's blood pressure is 161/104, pulse 62, respirations are 20, temperature is 98.1 degrees Fahrenheit. Height is 5 feet 8 inches. Weight is 169 pounds. GENERAL: The patient is awake, alert, oriented, appropriate, very pleasant demeanor. HEENT: Head shows normocephalic, atraumatic. Extraocular movements are intact and symmetrical. Oral cavity shows mucous membranes are moist and pink. Dentition is intact. NECK: Shows anterior throat supple without palpable lymphadenopathy noted. Swallow reflex symmetrical. CHEST: Shows normal on inspection. Breath sounds are clear bilaterally. HEART: Shows S1 and S2 clear. No murmurs auscultated. ABDOMEN: Soft, nontender, nondistended. No palpable organomegaly is noted. No rebound or guarding demonstrated. BACK: Shows spine grossly in the midline, normal-appearing cervical lordotic curvature and thoracic kyphotic curvature with slight flattening of lumbar lordotic curvature. Cervical paraspinous muscle shows symmetrical on inspection, with palpation shows some mild tenderness, but only diffusely in the low cervical distribution of paraspinous muscles without radiation and without atrophy or hypertrophy. The patient shows full rotational motion of cervical spine, both laterally as well as extension and flexion without significant pain reported. No specific trigger points and the muscles appear symmetrical and without asymmetry or radiation with palpation. EXTREMITIES: The patient's upper extremities showed deep tendon reflexes 2+ in the biceps and triceps tendons. Motor exam is strong with drainman strength rated at 5/5 on the right and 4/5 on the left. Bicep and tricep flexion, however, is 5/5 and equal bilaterally. Peripheral pulses are 2+ in radial distribution. No peripheral edema is noted. Options were discussed with the patient. The patient's old chart was reviewed as his current medication regimen updated. Current review of systems updated today as well. We will proceed with a first in this series of cervical epidural steroid injection today with fluoroscopic guidance. Risks were again discussed including, but not limited to bleeding, infection, possibility of epidural hematoma, subsequent neurological compromise, dural puncture, headaches, spinal cord and/or nerve damage, side effects of steroid medication and poor results regarding pain control. The patient understands and wished to proceed. The patient will return to clinic in approximately 2 weeks for followup. He was counseled on his return appointment, activity level and side effects to be aware of. DIAGNOSIS: Cervical radiculopathy with cervical degenerative disk disease. PROCEDURE: Cervical epidural steroid injection, translaminar approach C6-C7 level using C-arm fluoroscopic guidance under sterile prep and drape using local anesthetic. MEDICATIONS INJECTED: A total of 120 mg Depo-Medrol plus 5 mL of preservative-free normal saline and 2 mL of contrast. CONDITION AT DISCHARGE: Stable. The patient tolerated the procedure well, had no complications. FREDDY ROTH MD DR: KETURAH/danuta JOB#: [id number] / [id number]
== END ==
LOC: PNCL 08:33
PROVIDERS: ATTEND Anesthesiology
DX: M50.123 Cervical disc disorder at C6-C7 level with radiculopathy (principal); M51.16 Intervertebral disc disorders with radiculopathy, lumbar region; M47.816 Spondylosis without myelopathy or radiculopathy, lumbar region; M48.061 Spinal stenosis, lumbar region without neurogenic claudication
CPT/HCPCS: 62321; J1030; J1040; Q9965

== ENCOUNTER → 2019-11-27 | Outpatient (CLI) | payer MEDICARE, OTHER ==
--- NOTE | 2019-11-27 09:53 | PAIN ---
DATE OF SERVICE: 11/27/2019 PROGRESS NOTE FOR PAIN CLINIC DIAGNOSES: 1. Cervical radiculopathy with cervical degenerative disk disease. 2. Lumbar radiculopathy with lumbar spinal stenosis, degenerative disk disease and lumbar and lumbosacral spondylosis. HISTORY OF PRESENT ILLNESS: The patient is a 74-year-old male who returns for followup status post cervical epidural steroid injection, last seen 07/20/2019. The patient did very well with about 70% improvement for about 3 months. The patient reports the pain is returning now at base of neck and shoulders, more on the right upper extremity than the left, but present bilaterally with radiating pain and some numbness and tingling in the hands and fingers. The patient reports it is worse with activity, worse with reaching over his head with his hands, repetitive motions, driving. The patient reports that initially was doing much better with doing work activities, household activities, recreational activities, traveling with greater ease and comfort, sleeping better, now is beginning to awaken him from sleep about every 6-7 hours over the past few weeks. The patient reports no new motor or sensory deficits, no new bowel or bladder incontinence. Describes the pain as 8 on a scale of 10 at its worst over the past week, 7 on average, 6 at its least and is a 6 today, described as aching, tingling, burning, becoming more constant at this time. PHYSICAL EXAMINATION: VITAL SIGNS: The patient's blood pressure is 149/100, pulse 78, respirations 16, temperature 98.3 degrees Fahrenheit, height is 5 feet 8 inches and weight is 169 pounds. GENERAL: The patient is awake, alert, oriented, appropriate, very pleasant demeanor. HEENT: Head shows normocephalic, atraumatic. Extraocular movements are intact and symmetrical. Oral cavity: Mucous membranes moist and pink. Dentition is intact. NECK: Shows anterior throat supple without palpable lymphadenopathy noted. Swallow reflex symmetrical. CHEST: Shows normal on inspection. Breath sounds are clear bilaterally. HEART: Shows S1, S2 clear. No murmurs auscultated. ABDOMEN: Soft, nontender, nondistended. BACK: Shows spine grossly in the midline. Normal appearing thoracic kyphosis and minor flattening of lumbar lordotic curvature and normal cervical lordotic curvature. Cervical paraspinous muscle shows symmetrical on inspection, on palpation shows some moderate tenderness diffusely in the inferior aspect of the cervical paraspinous muscles bilaterally going diffusely without significant radiation. The patient has good rotational motion of cervical spine, both laterally as well as extension and flexion without significant pain reported. EXTREMITIES: The patient's upper extremities show deep tendon reflexes at 2+ in the biceps and triceps tendons. Motor exam is approximately 4 on a scale of 5 with left cotton farmer strength and 5/5 on the right. Peripheral pulses are 2+ radial. No peripheral edema is noted bilaterally. Shoulder shrug is strong and intact without loss of strength on resistance as well. Options were discussed with the patient. The patient's old chart was reviewed as was his medication regimen updated. Current review of systems updated today as well. We will proceed with a second in a series of cervical epidural steroid injection today with fluoroscopic guidance. Risks were again discussed including, but not limited to bleeding, infection, possibility of epidural hematoma, subsequent neurological compromise, dural puncture, headaches, spinal cord and/or nerve damage, side effects of steroid medication and poor results regarding pain control. The patient understands and wished to proceed. The patient will return to clinic in approximately 2 weeks for followup. He was counseled on return appointment, activity level and side effects to be aware of. DIAGNOSIS: Cervical radiculopathy with cervical degenerative disk disease. PROCEDURE: Cervical epidural steroid injection, translaminar approach C6-C7 level using C-arm fluoroscopic guidance under sterile prep and drape using local anesthetic. MEDICATION INJECTED: A total of 120 mg Depo-Medrol plus 5 mL of preservative-free normal saline and 2 mL of contrast. CONDITION AT DISCHARGE: Stable. The patient tolerated procedure well, had no complications. FREDDY ROTH MD DR: KETURAH/danuta JOB#: [id number] / [id number]
== END | disposition home or self-care (01) ==
LOC: PNCL 09:04
PROVIDERS: ATTEND Anesthesiology
DX: M50.123 Cervical disc disorder at C6-C7 level with radiculopathy (principal); M51.16 Intervertebral disc disorders with radiculopathy, lumbar region; M48.061 Spinal stenosis, lumbar region without neurogenic claudication; M47.896 Other spondylosis, lumbar region; I10 Essential (primary) hypertension; Z87.891 Personal history of nicotine dependence; Z79.899 Other long term (current) drug therapy; Z72.89 Other problems related to lifestyle
CPT/HCPCS: 62321; J1030; J1040; Q9965

== ENCOUNTER 2019-12-21 17:32 | Inpatient (IN) | payer MEDICARE, OTHER ==
[~2019-12-21] VITALS: Ht 172.7 cm; Wt 75.0 kg
[~2019-12-21 17:32] MED LIST changes: -IOHEXOL 180 MG/ML 10 ML VIAL. ONE; -methylPREDNISolone ACETATE 40 MG/ML VIAL. ONE; -methylPREDNISolone ACETATE 80 MG/ML VIAL. ONE
--- NOTE | 2019-12-21 18:31 | PHYS DOC ---
Past Medical History Past Medical History: Other Additional Past Medical Histor: PSORIASIS Past Surgical History: Cholecystectomy Smoking Status: Never Smoker Alcohol Use: Occasionally General Adult EDM: Chief Complaint: HEMATEMESIS/VOMITING BLOOD HPI: HPI: Patient is a 74 year old male presents with a day and a half history of fever. Patient had chills. Patient says he began with some abdominal discomfort nausea vomiting and has a headache. Headache is not the worst headache of his life and he feels like it may be due to the fact he has not had caffeine. Patient denies any neck pain. Patient denies diarrhea or cough. No chest pain or shortness of breath. Symptoms are better with antipyretics. Review of Systems: Review of Systems: Constitutional: Complains of fever and chills Eyes: Denies change in visual acuity. [] HENT: Denies nasal congestion or sore throat. [] Respiratory: Denies cough or shortness of breath. [] Cardiovascular: Denies chest pain or edema. [] GI: Denies abdominal pain, but has had nausea vomiting without diarrhea, possible hematemesis per EMS but patient denies melena or hematochezia : Denies dysuria but states hematuria Musculoskeletal: Complains of myalgias Integument: Denies rash. [] Neurologic: Denies headache, focal weakness or sensory changes. [] Endocrine: Denies polyuria or polydipsia. [] Lymphatic: Denies swollen glands. [] Psychiatric: Denies depression or anxiety. [] Heart Score: Risk Factors: Risk Factors: DM, Current or recent (<one month) smoker, HTN, HLP, family history of CAD, obesity. Risk Scores: Score 0 - 3: 2.5% MACE over next 6 weeks - Discharge Home Score 4 - 6: 20.3% MACE over next 6 weeks - Admit for Clinical Observation Score 7 - 10: 72.7% MACE over next 6 weeks - Early Invasive Strategies Current Medications: Current Medications Medications (Trade) Dose Ordered Sig/Jourdan Start Time Stop Time Status Last Admin Dose Admin Acetaminophen (Tylenol) 1,000 mg 1X ONCE 12/21/19 19:00 12/21/19 19:01 Ondansetron HCl (Zofran) 4 mg 1X ONCE 12/21/19 19:00 12/21/19 19:01 Allergies: Allergies: Allergies Coded Allergies Type Severity Reaction Last Updated Verified No Known Drug Allergies 12/31/16 No Physical Exam: PE: Constitutional: Well developed, well nourished, mild distress, non-toxic appearance. [] HENT: Normocephalic, atraumatic, bilateral external ears normal no trismus, nose normal. [] Eyes: PERRLA, EOMI, conjunctiva normal, no discharge. [] Neck: Normal range of motion, no tenderness, supple, no stridor. [] No meningeal signs Cardiovascular: Tachycardic, regular rhythm, peripheral pulses intact, cap refill brisk Lungs & Thorax: Bilateral breath sounds clear, no respiratory distress Abdomen:, soft, no tenderness, no masses, no pulsatile masses. [] Skin: Warm, dry, no erythema, no rash. [] Back: No tenderness, no CVA tenderness. [] Extremities: No tenderness, no cyanosis, no clubbing, ROM intact, no edema. [] Neurologic: Alert and oriented X 3, normal motor function, normal sensory function, no focal deficits noted. [] Psychologic: Affect normal, judgement normal, mood normal. [] Current Patient Data: Labs: Laboratory Tests Test 12/21/19 18:00 12/21/19 19:20 White Blood Count 7.2 x10^3/uL Red Blood Count 4.62 x10^6/uL Hemoglobin 14.6 g/dL Hematocrit 42.9 % Mean Corpuscular Volume 93 fL Mean Corpuscular Hemoglobin 32 pg Mean Corpuscular Hemoglobin Concent 34 g/dL Red Cell Distribution Width 13.7 % Platelet Count 115 x10^3/uL Neutrophils (%) (Auto) 94 % Lymphocytes (%) (Auto) 5 % Monocytes (%) (Auto) 1 % Eosinophils (%) (Auto) 0 % Basophils (%) (Auto) 0 % Neutrophils # (Auto) 6.8 x10^3/uL Lymphocytes # (Auto) 0.3 x10^3/uL Monocytes # (Auto) 0.1 x10^3/uL Eosinophils # (Auto) 0.0 x10^3/uL Basophils # (Auto) 0.0 x10^3/uL Segmented Neutrophils % 64 % Band Neutrophils % 31 % Lymphocytes % 5 % Platelet Estimate Decreased Prothrombin Time 14.5 SEC Prothromb Time International Ratio 1.2 Activated Partial Thromboplast Time 26 SEC D-Dimer (Carolyn) 1.42 ug/mlFEU Sodium Level 138 mmol/L Potassium Level 3.9 mmol/L Chloride Level 103 mmol/L Carbon Dioxide Level 27 mmol/L Anion Gap 8 Blood Urea Nitrogen 11 mg/dL Creatinine 1.2 mg/dL Estimated GFR (Cockcroft-Gault) 59.5 BUN/Creatinine Ratio 9 Glucose Level 93 mg/dL Lactic Acid Level 2.2 mmol/L Calcium Level 8.5 mg/dL Total Bilirubin 2.1 mg/dL Aspartate Amino Transf (AST/SGOT) 68 U/L Alanine Aminotransferase (ALT/SGPT) 45 U/L Alkaline Phosphatase 128 U/L Lactate Dehydrogenase 183 U/L Creatine Kinase 85 U/L Troponin I Quantitative 0.018 ng/mL C-Reactive Protein, Quantitative 94.3 mg/L Total Protein 6.4 g/dL Albumin 2.8 g/dL Albumin/Globulin Ratio 0.8 Lipase 555 U/L Procalcitonin 6.72 ng/mL Urine Collection Type Unknown Urine Color Dk yellow Urine Clarity Clear Urine pH 8.5 Urine Specific [place] 1.015 Urine Protein Negative mg/dL Urine Glucose (UA) Negative mg/dL Urine Ketones (Stick) 40 mg/dL Urine Blood Negative Urine Nitrite Negative Urine Bilirubin Negative Urine Urobilinogen Dipstick 1.0 mg/dL Urine Leukocyte Esterase Negative Urine RBC 0 /HPF Urine WBC 0 /HPF Urine Squamous Epithelial Cells Occ /LPF Urine Bacteria 0 /HPF Urine Mucus Mod /LPF Current Medications Medications (Trade) Dose Ordered Sig/Jourdan Route PRN Reason Start Time Stop Time Status Last Admin Dose Admin Acetaminophen (Tylenol) 1,000 mg 1X ONCE PO 12/21/19 19:00 12/21/19 19:01 DC 12/21/19 19:15 Ondansetron HCl (Zofran) 4 mg 1X ONCE IVP 12/21/19 19:00 12/21/19 19:01 DC 12/21/19 19:15 Sodium Chloride 1,000 ml @ 1,000 mls/hr 1X ONCE IV 12/21/19 20:00 12/21/19 20:59 12/21/19 20:20 Piperacillin Sod/ Tazobactam Sod 3.375 gm/Sodium Chloride 50 ml @ 100 mls/hr 1X ONCE IV 12/21/19 20:00 12/21/19 20:29 DC 12/21/19 20:21 Ondansetron HCl (Zofran) 4 mg PRN Q8HRS PRN IV NAUSEA/VOMITING 12/21/19 20:30 12/22/19 20:29 Sodium Chloride 1,000 ml @ 125 mls/hr Q8H IV 12/21/19 20:19 12/22/19 20:18 Acetaminophen (Tylenol) 650 mg PRN Q4HRS PRN PO FEVER > 100.3'F 12/21/19 20:30 12/22/19 20:29 Vital Signs: Vital Signs Date Time Temp Pulse Resp B/P (MAP) Pulse Ox O2 Delivery O2 Flow Rate FiO2 12/21/19 17:58 99.5 112 18 114/79 (91) 93 Room Air 99.5 Vital Signs Date Time Temp Pulse Resp B/P (MAP) Pulse Ox O2 Delivery O2 Flow Rate FiO2 12/21/19 17:58 99.5 112 18 114/79 (91) 93 Room Air 99.5 EKG: EKG: [] EKG interpreted by wv sinus tach with a rate of 111 normal axis, normal intervals normal ST segments Radiology/Procedures: Radiology/Procedures: [][facility] [address] [place], [place] [id number] IMAGING REPORT Signed PATIENT: BEV LE ACCOUNT: [id number] : 1945 LOCATION: ER AGE: 74 SEX: M EXAM STATUS: REG ER ORD. PHYSICIAN: DORI JAMIL MD REASON: fever 18 PROCEDURE: PORTABLE CHEST 1V Exam: Chest one view INDICATION: Fever TECHNIQUE: Frontal view of the chest Comparisons: None FINDINGS: The cardiomediastinal silhouette and pulmonary vessels are within normal limits. The lung and pleural spaces are clear. IMPRESSION: No acute cardiopulmonary process. Electronically signed by: Penelope Bourgeois MD (12/21/2019 6:50 PM) [id number] DICTATED and SIGNED BY: PENELOPE BOURGEOIS MD DATE: 12/21/19 1850 Course & Med Decision Making: Course & Med Decision Making Pertinent Labs and Imaging studies reviewed. (See chart for details) [] 74-year-old male presents with fever. Patient also has a headache. Patient has a normal neurologic exam and meningeal signs. Patient's labs were remarkable for an elevated pro calcitonin and I am concerned there may be a bacterial infection. Abdomen is soft and nontender I doubt surgical emergency. Patiently placed on IV antibiotics and IV fluids. Patient will be admitted to Dr. Almanza for further evaluation and treatment. Patient does have elevated d-dimer but denies chest pain shortness of breath. We will hold off CTA for now. If he decompensates.we will order CTA. Patient clinically stable on reassessment. Heart rate in the low 100s, complains of mild headache but no meningeal signs Dragon Disclaimer: Dragon Disclaimer: This electronic medical record was generated, in whole or in part, using a voice recognition dictation system. Departure Departure Impression: Primary Impression: Fever Disposition: ADMITTED INPATIENT Admitting Physician: MATTHIAS (CELIO) Condition: STABLE Referrals: CHILANGO HORTA MD (PCP) Justicifation of Admission Dx: Justifications for Admission: Justification of Admission Dx: Yes Date and Time of Reassessment Date: Dec 21, 2019 Time: 20:30 Fluid Challenge Is the fluid challenge complet: Yes IBW Target Volume Used: Yes BMI > 30: No Vital Signs Vital Signs: Vital Signs Date Time Temp Pulse Resp B/P (MAP) Pulse Ox O2 Delivery O2 Flow Rate FiO2 12/21/19 17:58 99.5 112 18 114/79 (91) 93 Room Air 99.5 Temperature Source: Oral Respirations Respiratory Effort: Normal Respiratory Pattern: Normal Cardiovascular Pulse Rhythm: Regular Heart: Nml rate, reg. rhythm (TACHY) Lung Sounds Breath Sounds: Clear Capillary Refil Capillary Refill: Rt Hand < 3 seconds Peripheral Pulse Pulse Location: Monitor Pulse Strength: Normal (2+) Pulse Assessment Method: Monitor Integumentary Skin: Warm, Dry Skin Moisture: Dry Skin Turgor: Normal Skin Color: warm, dry Fingernail Color: WNL DORI JAMIL MD Dec 21, 2019 18:31
[2019-12-21 18:39] LABS: BASO % 0 % (0-3); EOS % 0 % (0-3); HEMATOCRIT 42.9 % (39.0-53.0); HEMOGLOBIN 14.6 g/dL (13.0-17.5); LYMPH # 0.3 x10^3/uL (1.0-4.8); LYMPH % 5 % (24-48); MEAN CORPUSCULAR HEMOGLOBIN 32 pg (25-35); MEAN CORPUSCULAR HGB CONC 34 g/dL (31-37); MEAN CORPUSCULAR VOLUME 93 fL (79-100); MONO # 0.1 x10^3/uL (0.0-1.1); MONO % 1 % (0-9); NEUT # 6.8 x10^3/uL (1.8-7.7); NEUT % 94 % (31-73); PLATELET COUNT 115 x10^3/uL (140-400); RED BLOOD COUNT 4.62 x10^6/uL (4.30-5.70); RED CELL DISTRIBUTION WIDTH 13.7 % (11.5-14.5); WHITE BLOOD COUNT 7.2 x10^3/uL (4.0-11.0)
[2019-12-21 18:48] LABS: PROTHROMBIN TIME PATIENT 14.5 SEC (11.7-14.0)
[2019-12-21 18:51] LABS: D-DIMER 1.42 ug/mlFEU (0.00-0.50)
--- NOTE | 2019-12-21 18:53 | RAD ---
Exam: Chest one view INDICATION: Fever TECHNIQUE: Frontal view of the chest Comparisons: None FINDINGS: The cardiomediastinal silhouette and pulmonary vessels are within normal limits. The lung and pleural spaces are clear. IMPRESSION: No acute cardiopulmonary process. Electronically signed by: Penelope Canales MD (12/21/2019 6:50 PM) [id number]
[2019-12-21 18:57] LABS: CALCIUM 8.5 mg/dL (8.5-10.1); CREATININE 1.2 mg/dL (0.7-1.3); GFR 59.5; POTASSIUM 3.9 mmol/L (3.5-5.1)
[2019-12-21] MEDS ORDERED: ACETAMINOPHEN 500 MG TABLET PO ONE (19:00)
[2019-12-21] MEDS ORDERED: ONDANSETRON PF 4 MG/2 ML VIAL. IVP ONE (19:00)
[2019-12-21 19:01] LABS: ALBUMIN 2.8 g/dL (3.4-5.0); ALBUMIN/GLOBULIN RATIO 0.8 (1.0-1.7); C-REACTIVE PROTEIN 94.3 mg/L (0-3.3); TOTAL BILIRUBIN 2.1 mg/dL (0.2-1.0); TOTAL PROTEIN 6.4 g/dL (6.4-8.2)
[2019-12-21 19:07] LABS: % BANDS 31 % (0-9); % LYMPHS 5 % (24-48); % SEGS 64 % (35-66); PLT ESTIMATE DECREASED (ADEQUATE)
[2019-12-21 19:34] LABS: BILIRUBIN,URINE NEGATIVE (NEG); CLARITY,URINE CLEAR; NITRITE,URINE NEGATIVE (NEG); PH,URINE 8.5 (<5.0-8.0); PROTEIN,URINE NEGATIVE (NEG-TRACE)
[2019-12-21 19:41] LABS: COLOR,URINE DK YELLOW
[2019-12-21 19:42] LABS: SQUAMOUS EPITHELIAL CELL,UR OCC /LPF
[2019-12-21 19:43] LABS: BACTERIA,URINE 0 /HPF (0-FEW); RBC,URINE 0 /HPF (0-2); WBC,URINE 0 /HPF (0-4)
[2019-12-21] MEDS ORDERED: IV NORMAL SALINE 1000ML BAG 1,000 ML IV ONE (20:00)
[2019-12-21] MEDS ORDERED: PIPERACILLIN/TAZOBACTAM 3.375 GM in IV NORMAL SALINE 50ML 50 ML IV ONE (20:00)
[2019-12-21] MEDS ORDERED: ACETAMINOPHEN 325 MG TABLET. PO PRN (20:30)
[2019-12-21 23:00] VITALS: BP 113/67
[2019-12-22] MEDS: IV NORMAL SALINE 1000ML BAG 1,000 ML IV SCH ×3 (00:01→12:19)
[2019-12-22 03:20] VITALS: BP 126/74
[2019-12-22] MEDS ORDERED: IBUPROFEN 400 MG TABLET. PO PRN (06:00)
[2019-12-22 07:00] VITALS: BP 142/80
--- NOTE | 2019-12-22 07:29 | EKG ---
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
[2019-12-22] MEDS ORDERED: PIP/TAZO PER PHARMACY MC PRN (08:30)
[2019-12-22] MEDS ORDERED: VANCOMYCIN PER PHARMACY MC PRN (08:30)
[2019-12-22] MEDS: PIPERACILLIN/TAZOBACTAM 3.375 GM in IV NORMAL SALINE 50ML 50 ML IV SCH ×4 (09:02→23:15)
[2019-12-22] MEDS ORDERED: VANCOMYCIN 1.75 GM in IV NORMAL SALINE 500ML BAG 500 ML IV ONE (09:30)
[2019-12-22 11:00] VITALS: BP 123/76
--- NOTE | 2019-12-22 11:36 | PDOC ---
Infectious Disease Note Vital Sign Vital Signs Vital Signs Date Time Temp Pulse Resp B/P (MAP) Pulse Ox O2 Delivery O2 Flow Rate FiO2 12/22/19 08:00 Nasal Cannula 2.0 12/22/19 07:00 98.6 70 18 142/80 (100) 99 98.6 Labs Lab Laboratory Tests Test 12/21/19 18:00 12/21/19 19:20 White Blood Count 7.2 x10^3/uL (4.0-11.0) Red Blood Count 4.62 x10^6/uL (4.30-5.70) Hemoglobin 14.6 g/dL (13.0-17.5) Hematocrit 42.9 % (39.0-53.0) Mean Corpuscular Volume 93 fL (79-100) Mean Corpuscular Hemoglobin 32 pg (25-35) Mean Corpuscular Hemoglobin Concent 34 g/dL (31-37) Red Cell Distribution Width 13.7 % (11.5-14.5) Platelet Count 115 x10^3/uL (140-400) Neutrophils (%) (Auto) 94 % (31-73) Lymphocytes (%) (Auto) 5 % (24-48) Monocytes (%) (Auto) 1 % (0-9) Eosinophils (%) (Auto) 0 % (0-3) Basophils (%) (Auto) 0 % (0-3) Neutrophils # (Auto) 6.8 x10^3/uL (1.8-7.7) Lymphocytes # (Auto) 0.3 x10^3/uL (1.0-4.8) Monocytes # (Auto) 0.1 x10^3/uL (0.0-1.1) Eosinophils # (Auto) 0.0 x10^3/uL (0.0-0.7) Basophils # (Auto) 0.0 x10^3/uL (0.0-0.2) Segmented Neutrophils % 64 % (35-66) Band Neutrophils % 31 % (0-9) Lymphocytes % 5 % (24-48) Platelet Estimate Decreased (ADEQUATE) Prothrombin Time 14.5 SEC (11.7-14.0) Prothromb Time International Ratio 1.2 (0.8-1.1) Activated Partial Thromboplast Time 26 SEC (24-38) D-Dimer (Carolyn) 1.42 ug/mlFEU (0.00-0.50) Sodium Level 138 mmol/L (136-145) Potassium Level 3.9 mmol/L (3.5-5.1) Chloride Level 103 mmol/L (98-107) Carbon Dioxide Level 27 mmol/L (21-32) Anion Gap 8 (6-14) Blood Urea Nitrogen 11 mg/dL (8-26) Creatinine 1.2 mg/dL (0.7-1.3) Estimated GFR (Cockcroft-Gault) 59.5 BUN/Creatinine Ratio 9 (6-20) Glucose Level 93 mg/dL (70-99) Lactic Acid Level 2.2 mmol/L (0.4-2.0) Calcium Level 8.5 mg/dL (8.5-10.1) Total Bilirubin 2.1 mg/dL (0.2-1.0) Aspartate Amino Transf (AST/SGOT) 68 U/L (15-37) Alanine Aminotransferase (ALT/SGPT) 45 U/L (16-63) Alkaline Phosphatase 128 U/L (46-116) Lactate Dehydrogenase 183 U/L (85-227) Creatine Kinase 85 U/L (39-308) Troponin I Quantitative 0.018 ng/mL (0.000-0.055) C-Reactive Protein, Quantitative 94.3 mg/L (0-3.3) Total Protein 6.4 g/dL (6.4-8.2) Albumin 2.8 g/dL (3.4-5.0) Albumin/Globulin Ratio 0.8 (1.0-1.7) Lipase 555 U/L (73-393) Procalcitonin 6.72 ng/mL (0.00-0.10) Urine Collection Type Unknown Urine Color Dk yellow Urine Clarity Clear Urine pH 8.5 (<5.0-8.0) Urine Specific [place] 1.015 (1.000-1.030) Urine Protein Negative mg/dL (NEG-TRACE) Urine Glucose (UA) Negative mg/dL (NEG) Urine Ketones (Stick) 40 mg/dL (NEG) Urine Blood Negative (NEG) Urine Nitrite Negative (NEG) Urine Bilirubin Negative (NEG) Urine Urobilinogen Dipstick 1.0 mg/dL (0.2 mg/dL) Urine Leukocyte Esterase Negative (NEG) Urine RBC 0 /HPF (0-2) Urine WBC 0 /HPF (0-4) Urine Squamous Epithelial Cells Occ /LPF Urine Bacteria 0 /HPF (0-FEW) Urine Mucus Mod /LPF Micro Microbiology 12/21/19 Blood Culture - Final, Complete Objective Assessment pt seen , consult dictated Plan Plan of Care / RAMIRO BLACKWELL MD Dec 22, 2019 11:36
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
[2019-12-22] MEDS ORDERED: NAPROXEN 500 MG TABLET PO PRN (13:00)
[2019-12-22] MEDS: MULTIVITAMIN with MINERAL TABLET. PO SCH (13:42)
[2019-12-22] MEDS: CHOLECALCIFEROL (VITAMIN D3) 1,000 UNIT TABLET PO SCH (13:42)
[2019-12-22] MEDS: oxyCODONE/APAP 5/325 1 TAB TABLET PO PRN ×2 (13:43→20:54)
--- NOTE | 2019-12-22 13:46 | PDOC1 ---
History and Physical Date of Service: DOS: DATE: 12/22/19 TIME: 13:40 Chief Complaint: Chief Complain: Fever and chills History of Present Illness: HPI: 74-year-old gentleman, who came in with fever and chills. The patient had some nausea and vomiting, little stomach upset, maybe he may have seen some blood in the vomit. The patient's blood culture is positive with Gram-negative saba. The patient denies any nausea or vomiting now. The patient denies any chest pain or shortness of breath. Denies any abdominal pain right now. Denies any urinary symptoms or bowel symptoms. The patient had about 4 times this kind of symptoms happen in last 6 months and two times he went to the doctor and they did COVID, which was negative and the third time, it was mild, so he did not go to the doctor and fourth time now, he is here, which was the worst fever and chills. The patient has high temperature, max was 99.5 here. Blood pressure has been stable and of course the Gram-negative saba in the blood. The patient is on vanc and Zosyn Past Medical/Surgical History: PMH/PSH: Past Medical History: PSORIASIS Past Surgical History: Cholecystectomy Allergies: Allergies: Coded Allergies: No Known Drug Allergies (Unverified , 12/31/16) Family History: Family History: Reviewed and none reported Social History: Social History: Smoking Status: Never Smoker Alcohol Use: Occasionally Current Medications: Current Medications Current Medications Acetaminophen (Tylenol) 1,000 mg 1X ONCE PO Last administered on 12/21/19at 19:15; Start 12/21/19 at 19:00; Stop 12/21/19 at 19:01; Status DC Ondansetron HCl (Zofran) 4 mg 1X ONCE IVP Last administered on 12/21/19at 19:15; Start 12/21/19 at 19:00; Stop 12/21/19 at 19:01; Status DC Sodium Chloride 1,000 ml @ 1,000 mls/hr 1X ONCE IV Last administered on 12/21/19at 20:20; Start 12/21/19 at 20:00; Stop 12/21/19 at 20:59; Status DC Piperacillin Sod/ Tazobactam Sod 3.375 gm/Sodium Chloride 50 ml @ 100 mls/hr 1X ONCE IV Last administered on 12/21/19at 20:21; Start 12/21/19 at 20:00; Stop 12/21/19 at 20:29; Status DC Ondansetron HCl (Zofran) 4 mg PRN Q8HRS PRN IV NAUSEA/VOMITING Last administered on 12/22/19at 00:00; Start 12/21/19 at 20:30; Stop 12/22/19 at 20:29 Sodium Chloride 1,000 ml @ 125 mls/hr Q8H IV Last administered on 12/22/19at 06:15; Start 12/21/19 at 20:19; Stop 12/22/19 at 20:18 Acetaminophen (Tylenol) 650 mg PRN Q4HRS PRN PO FEVER > 100.3'F Last administered on 12/22/19at 03:06; Start 12/21/19 at 20:30; Stop 12/22/19 at 20:29 Ibuprofen (Motrin) 400 mg PRN Q4HRS PRN PO MODERATE PAIN 4-6 Last administered on 12/22/19at 06:14; Start 12/22/19 at 06:00 Vancomycin HCl (Vanco Per Pharmacy) 1 each PRN DAILY PRN [facility] SEE COMMENTS; St art 12/22/19 at 08:30; Stop 12/22/19 at 11:36; Status DC Piperacillin Sod/ Tazobactam Sod (Zosyn Per Pharmacy) 1 each PRN DAILY PRN [facility] SEE COMMENTS; Start 12/22/19 at 08:30 Piperacillin Sod/ Tazobactam Sod 3.375 gm/Sodium Chloride 50 ml @ 100 mls/hr Q6HRS IV Last administered on 12/22/19at 09:02; Start 12/22/19 at 09:00 Vancomycin HCl 1.75 gm/Sodium Chloride 500 ml @ 250 mls/hr 1X ONCE IV Last administered on 12/22/19at 09:52; Start 12/22/19 at 09:30; Stop 12/22/19 at 11:29; Status DC Vitamin D (Vitamin D3) 1,000 unit DAILY PO ; Start 12/22/19 at 14:00 Docusate Sodium (Colace) 100 mg BID PO ; Start 12/22/19 at 21:00 Gabapentin (Neurontin) 300 mg BID PO ; Start 12/22/19 at 21:00 Oxycodone/ Acetaminophen (Percocet 5/325) 1 tab PRN Q6HRS PRN PO SEVERE PAIN; Start 12/22/19 at 13:00 Multivitamins (Thera M Plus) 1 tab DAILY PO ; Start 12/22/19 at 14:00 Naproxen (Naprosyn) 500 mg PRN BID PRN PO MILD PAIN 1-3; Start 12/22/19 at 13:00 Pantoprazole Sodium (Protonix) 40 mg DAILYAC PO ; Start 12/22/19 at 14:00 Active Scripts Active Reported Gabapentin (Gabapentin) 300 Mg Capsule 300 Mg PO BID Oxycodone-Acetaminophen 5-325 (Oxycodone Hcl/Acetaminophen) 1 Each Tablet 1 Each PO PRN Q6HRS PRN Naproxen 500 Mg Tablet. 1 Tab PO BID PRN Multi-Day Vitamins (Multivitamin) 1 Each Tablet 1 Tab PO DAILY Vitamin D (Cholecalciferol (Vitamin D3)) 1,000 Unit Tablet 1,000 Unit PO Omeprazole 20 Mg Capsule. 2 Cap PO DAILY ROS: Review of Systems Review of System REVIEW OF SYSTEMS: GENERAL: Denies weakness SKIN: No bruising, hair changes or rashes. EYES: No blurred, double or loss of vision. NOSE AND THROAT: No history of nosebleeds, hoarseness or sore throat. HEART: No history of palpitations, chest pain or shortness of breath on exertion. LUNGS: Denies cough, hemoptysis, wheezing or shortness of breath. GASTROINTESTINAL: Denies changes in appetite, nausea, vomiting, diarrhea or constipation. GENITOURINARY: No history of frequency, urgency, hesitancy or nocturia. NEUROLOGIC: Denies history of numbness, tingling, or tremor. PSYCHIATRIC: No history of panic, anxiety or depression. ENDOCRINE: No history of heat or cold intolerance, polyuria or polydipsia. EXTREMITIES: Denies joint pain, pain on walking or stiffness. Physical Exam: Vital Signs: Vital Signs Date Time Temp Pulse Resp B/P (MAP) Pulse Ox O2 Delivery O2 Flow Rate FiO2 12/22/19 11:00 98.5 83 18 123/76 (92) 94 Room Air 98.5 12/22/19 08:00 2.0 Physcial Exam: GEN: No apparent distress. Alert and oriented HEENT: Normal cephalic, atraumatic, external auditory canals are patent EYES: Extraocular muscles are intact, pupil are equally round and reactive to light and accommodation MUSCULOSKELETAL: Well developed , well nourished, good range of motion ENDOCRINE: No thyromegaly was palpated LYMPHATICS: No cervical chain or axillary nodes were noted HEMATOPOIETIC: No bruising NECK: Supple, no JVD, no thyromegaly was noted LUNGS: Clear to auscultation in all lung burnette without rhonchi or wheezing HEART: RRR, S!, S2 present. Peripheral pulses intact, no obvious murmurs noted ABDOMEN: Soft, nontender. Positive bowel sounds, no organomegaly, normal bowel sounds EXTREMITIES: Without clubbing, cyanosis, or edema. Pedal pulses intact. Negative Homans sign NEUROLOGIC: Normal speech and tone. A&O x 3, moves all extremities, no obvious focal deficits PSYCHIATRIC: Normal affect, normal mood. Stable SKIN: No ulcerations or rashes, good skin turgor, no jaundice VASCULAR: Good capillary refill, neurovascular bundle appears to be intact Labs: Labs: Laboratory Tests Test 12/21/19 18:00 12/21/19 19:20 White Blood Count 7.2 x10^3/uL (4.0-11.0) Red Blood Count 4.62 x10^6/uL (4.30-5.70) Hemoglobin 14.6 g/dL (13.0-17.5) Hematocrit 42.9 % (39.0-53.0) Mean Corpuscular Volume 93 fL (79-100) Mean Corpuscular Hemoglobin 32 pg (25-35) Mean Corpuscular Hemoglobin Concent 34 g/dL (31-37) Red Cell Distribution Width 13.7 % (11.5-14.5) Platelet Count 115 x10^3/uL (140-400) Neutrophils (%) (Auto) 94 % (31-73) Lymphocytes (%) (Auto) 5 % (24-48) Monocytes (%) (Auto) 1 % (0-9) Eosinophils (%) (Auto) 0 % (0-3) Basophils (%) (Auto) 0 % (0-3) Neutrophils # (Auto) 6.8 x10^3/uL (1.8-7.7) Lymphocytes # (Auto) 0.3 x10^3/uL (1.0-4.8) Monocytes # (Auto) 0.1 x10^3/uL (0.0-1.1) Eosinophils # (Auto) 0.0 x10^3/uL (0.0-0.7) Basophils # (Auto) 0.0 x10^3/uL (0.0-0.2) Segmented Neutrophils % 64 % (35-66) Band Neutrophils % 31 % (0-9) Lymphocytes % 5 % (24-48) Platelet Estimate Decreased (ADEQUATE) Prothrombin Time 14.5 SEC (11.7-14.0) Prothromb Time International Ratio 1.2 (0.8-1.1) Activated Partial Thromboplast Time 26 SEC (24-38) D-Dimer (Carolyn) 1.42 ug/mlFEU (0.00-0.50) Sodium Level 138 mmol/L (136-145) Potassium Level 3.9 mmol/L (3.5-5.1) Chloride Level 103 mmol/L (98-107) Carbon Dioxide Level 27 mmol/L (21-32) Anion Gap 8 (6-14) Blood Urea Nitrogen 11 mg/dL (8-26) Creatinine 1.2 mg/dL (0.7-1.3) Estimated GFR (Cockcroft-Gault) 59.5 BUN/Creatinine Ratio 9 (6-20) Glucose Level 93 mg/dL (70-99) Lactic Acid Level 2.2 mmol/L (0.4-2.0) Calcium Level 8.5 mg/dL (8.5-10.1) Total Bilirubin 2.1 mg/dL (0.2-1.0) Aspartate Amino Transf (AST/SGOT) 68 U/L (15-37) Alanine Aminotransferase (ALT/SGPT) 45 U/L (16-63) Alkaline Phosphatase 128 U/L (46-116) Lactate Dehydrogenase 183 U/L (85-227) Creatine Kinase 85 U/L (39-308) Troponin I Quantitative 0.018 ng/mL (0.000-0.055) C-Reactive Protein, Quantitative 94.3 mg/L (0-3.3) Total Protein 6.4 g/dL (6.4-8.2) Albumin 2.8 g/dL (3.4-5.0) Albumin/Globulin Ratio 0.8 (1.0-1.7) Lipase 555 U/L (73-393) Procalcitonin 6.72 ng/mL (0.00-0.10) Urine Collection Type Unknown Urine Color Dk yellow Urine Clarity Clear Urine pH 8.5 (<5.0-8.0) Urine Specific [place] 1.015 (1.000-1.030) Urine Protein Negative mg/dL (NEG-TRACE) Urine Glucose (UA) Negative mg/dL (NEG) Urine Ketones (Stick) 40 mg/dL (NEG) Urine Blood Negative (NEG) Urine Nitrite Negative (NEG) Urine Bilirubin Negative (NEG) Urine Urobilinogen Dipstick 1.0 mg/dL (0.2 mg/dL) Urine Leukocyte Esterase Negative (NEG) Urine RBC 0 /HPF (0-2) Urine WBC 0 /HPF (0-4) Urine Squamous Epithelial Cells Occ /LPF Urine Bacteria 0 /HPF (0-FEW) Urine Mucus Mod /LPF Laboratory Tests Test 12/21/19 18:00 12/21/19 19:20 White Blood Count 7.2 x10^3/uL (4.0-11.0) Red Blood Count 4.62 x10^6/uL (4.30-5.70) Hemoglobin 14.6 g/dL (13.0-17.5) Hematocrit 42.9 % (39.0-53.0) Mean Corpuscular Volume 93 fL (79-100) Mean Corpuscular Hemoglobin 32 pg (25-35) Mean Corpuscular Hemoglobin Concent 34 g/dL (31-37) Red Cell Distribution Width 13.7 % (11.5-14.5) Platelet Count 115 x10^3/uL (140-400) Neutrophils (%) (Auto) 94 % (31-73) Lymphocytes (%) (Auto) 5 % (24-48) Monocytes (%) (Auto) 1 % (0-9) Eosinophils (%) (Auto) 0 % (0-3) Basophils (%) (Auto) 0 % (0-3) Neutrophils # (Auto) 6.8 x10^3/uL (1.8-7.7) Lymphocytes # (Auto) 0.3 x10^3/uL (1.0-4.8) Monocytes # (Auto) 0.1 x10^3/uL (0.0-1.1) Eosinophils # (Auto) 0.0 x10^3/uL (0.0-0.7) Basophils # (Auto) 0.0 x10^3/uL (0.0-0.2) Segmented Neutrophils % 64 % (35-66) Band Neutrophils % 31 % (0-9) Lymphocytes % 5 % (24-48) Platelet Estimate Decreased (ADEQUATE) Prothrombin Time 14.5 SEC (11.7-14.0) Prothromb Time International Ratio 1.2 (0.8-1.1) Activated Partial Thromboplast Time 26 SEC (24-38) D-Dimer (Carolyn) 1.42 ug/mlFEU (0.00-0.50) Sodium Level 138 mmol/L (136-145) Potassium Level 3.9 mmol/L (3.5-5.1) Chloride Level 103 mmol/L (98-107) Carbon Dioxide Level 27 mmol/L (21-32) Anion Gap 8 (6-14) Blood Urea Nitrogen 11 mg/dL (8-26) Creatinine 1.2 mg/dL (0.7-1.3) Estimated GFR (Cockcroft-Gault) 59.5 BUN/Creatinine Ratio 9 (6-20) Glucose Level 93 mg/dL (70-99) Lactic Acid Level 2.2 mmol/L (0.4-2.0) Calcium Level 8.5 mg/dL (8.5-10.1) Total Bilirubin 2.1 mg/dL (0.2-1.0) Aspartate Amino Transf (AST/SGOT) 68 U/L (15-37) Alanine Aminotransferase (ALT/SGPT) 45 U/L (16-63) Alkaline Phosphatase 128 U/L (46-116) Lactate Dehydrogenase 183 U/L (85-227) Creatine Kinase 85 U/L (39-308) Troponin I Quantitative 0.018 ng/mL (0.000-0.055) C-Reactive Protein, Quantitative 94.3 mg/L (0-3.3) Total Protein 6.4 g/dL (6.4-8.2) Albumin 2.8 g/dL (3.4-5.0) Albumin/Globulin Ratio 0.8 (1.0-1.7) Lipase 555 U/L (73-393) Procalcitonin 6.72 ng/mL (0.00-0.10) Urine Collection Type Unknown Urine Color Dk yellow Urine Clarity Clear Urine pH 8.5 (<5.0-8.0) Urine Specific [place] 1.015 (1.000-1.030) Urine Protein Negative mg/dL (NEG-TRACE) Urine Glucose (UA) Negative mg/dL (NEG) Urine Ketones (Stick) 40 mg/dL (NEG) Urine Blood Negative (NEG) Urine Nitrite Negative (NEG) Urine Bilirubin Negative (NEG) Urine Urobilinogen Dipstick 1.0 mg/dL (0.2 mg/dL) Urine Leukocyte Esterase Negative (NEG) Urine RBC 0 /HPF (0-2) Urine WBC 0 /HPF (0-4) Urine Squamous Epithelial Cells Occ /LPF Urine Bacteria 0 /HPF (0-FEW) Urine Mucus Mod /LPF Images: Images CXR IMPRESSION: No acute cardiopulmonary process. Assessment/Plan Assessment/Plan Gram-negative sepsis History of GERD History of psoriasis Mild lactic acidemia Mild malnutrition Admit to medicine Appreciate ID recommendations Pending CT abdomen pelvis DC IV vancomycin and continue IV Zosyn Pending further blood culture sensitivities Lovenox for DVT prophylaxis ADA diet Full code Discussed with RN and SW Disposition inpatient care, pending blood culture sensitivities Surrogate decision maker is self Justifications for Admission Other Justification THONY PICKENS MD Dec 22, 2019 13:46
[2019-12-22] MEDS ORDERED: PANTOPRAZOLE 40 MG TABLET.DR. PO SCH (14:00)
[2019-12-22] MEDS: ONDANSETRON PF 4 MG/2 ML VIAL. IV PRN ×2 (14:55)
[2019-12-22 15:00] VITALS: BP 162/88
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
[2019-12-22] MEDS: ENOXAPARIN 40 MG/0.4 ML SYRINGE. SQ SCH (16:04)
--- NOTE | 2019-12-22 17:25 | NUR ---
SW following. Spoke with RN and reviewed chart. Pt on room air. Pt on a cardiac diet with consults to ID and GI. Pt COVID negative. Pt on IV Zosyn. SW following.
[2019-12-22 19:52] VITALS: BP 137/86
[2019-12-22] MEDS: DOCUSATE SODIUM 100 MG CAPSULE. PO SCH (20:54)
[2019-12-22] MEDS: GABAPENTIN 300 MG CAPSULE. PO SCH (20:54)
[2019-12-22] MEDS ORDERED: oxyCODONE/APAP 5/325 1 TAB TABLET PO ONE (23:15)
[2019-12-22 23:19] VITALS: BP 154/89
[2019-12-23 03:25] VITALS: BP 125/75
[2019-12-23 04:40] LABS: BASO % 1 % (0-3); EOS # 0.1 x10^3/uL (0.0-0.7); EOS % 1 % (0-3); HEMATOCRIT 39.1 % (39.0-53.0); HEMOGLOBIN 13.1 g/dL (13.0-17.5); LYMPH # 1.3 x10^3/uL (1.0-4.8); LYMPH % 14 % (24-48); MEAN CORPUSCULAR HEMOGLOBIN 31 pg (25-35); MEAN CORPUSCULAR HGB CONC 34 g/dL (31-37); MEAN CORPUSCULAR VOLUME 94 fL (79-100); MONO # 0.7 x10^3/uL (0.0-1.1); MONO % 7 % (0-9); NEUT # 7.3 x10^3/uL (1.8-7.7); NEUT % 77 % (31-73); PLATELET COUNT 99 x10^3/uL (140-400); RED BLOOD COUNT 4.18 x10^6/uL (4.30-5.70); RED CELL DISTRIBUTION WIDTH 14.4 % (11.5-14.5); WHITE BLOOD COUNT 9.4 x10^3/uL (4.0-11.0)
[2019-12-23 05:12] LABS: ALBUMIN 2.3 g/dL (3.4-5.0); ALBUMIN/GLOBULIN RATIO 0.7 (1.0-1.7); CALCIUM 8.5 mg/dL (8.5-10.1); CREATININE 0.8 mg/dL (0.7-1.3); POTASSIUM 4.1 mmol/L (3.5-5.1); TOTAL BILIRUBIN 0.9 mg/dL (0.2-1.0); TOTAL PROTEIN 5.6 g/dL (6.4-8.2)
[2019-12-23] MEDS: PIPERACILLIN/TAZOBACTAM 3.375 GM in IV NORMAL SALINE 50ML 50 ML IV SCH ×3 (06:27→18:00)
--- NOTE | 2019-12-23 07:03 | PDOC ---
Infectious Disease Note Subjective Subjective pt is feeling better did have coffee ground vomiting ROS ROS no n/v/d/sob/fever or chills now Vital Sign Vital Signs Vital Signs Date Time Temp Pulse Resp B/P (MAP) Pulse Ox O2 Delivery O2 Flow Rate FiO2 12/23/19 03:25 98.2 79 16 125/75 (92) 91 Room Air 98.2 12/22/19 20:00 2.0 Physical Exam PHYSICAL EXAM GENERAL: Alert and oriented gentleman, not in any distress. VITAL SIGNS: Stable HEENT: NAD. NECK: Supple, no JVP, no lymphadenopathy. LUNGS: Clear. HEART: S1, S2 regular. ABDOMEN: Benign. EXTREMITIES: No edema or cyanosis. SKIN: Unremarkable. NEUROLOGIC: The patient is alert, awake and appropriate. No focal neurologic deficit. The patient's cervical spine area where the injection was done, there are no signs of infection as well as before then, he had a knee injection done, which was unremarkable. Labs Lab Laboratory Tests Test 12/23/19 04:00 White Blood Count 9.4 x10^3/uL (4.0-11.0) Red Blood Count 4.18 x10^6/uL (4.30-5.70) Hemoglobin 13.1 g/dL (13.0-17.5) Hematocrit 39.1 % (39.0-53.0) Mean Corpuscular Volume 94 fL (79-100) Mean Corpuscular Hemoglobin 31 pg (25-35) Mean Corpuscular Hemoglobin Concent 34 g/dL (31-37) Red Cell Distribution Width 14.4 % (11.5-14.5) Platelet Count 99 x10^3/uL (140-400) Neutrophils (%) (Auto) 77 % (31-73) Lymphocytes (%) (Auto) 14 % (24-48) Monocytes (%) (Auto) 7 % (0-9) Eosinophils (%) (Auto) 1 % (0-3) Basophils (%) (Auto) 1 % (0-3) Neutrophils # (Auto) 7.3 x10^3/uL (1.8-7.7) Lymphocytes # (Auto) 1.3 x10^3/uL (1.0-4.8) Monocytes # (Auto) 0.7 x10^3/uL (0.0-1.1) Eosinophils # (Auto) 0.1 x10^3/uL (0.0-0.7) Basophils # (Auto) 0.0 x10^3/uL (0.0-0.2) Sodium Level 141 mmol/L (136-145) Potassium Level 4.1 mmol/L (3.5-5.1) Chloride Level 108 mmol/L (98-107) Carbon Dioxide Level 26 mmol/L (21-32) Anion Gap 7 (6-14) Blood Urea Nitrogen 17 mg/dL (8-26) Creatinine 0.8 mg/dL (0.7-1.3) Estimated GFR (Cockcroft-Gault) 95.0 BUN/Creatinine Ratio 21 (6-20) Glucose Level 85 mg/dL (70-99) Calcium Level 8.5 mg/dL (8.5-10.1) Total Bilirubin 0.9 mg/dL (0.2-1.0) Aspartate Amino Transf (AST/SGOT) 22 U/L (15-37) Alanine Aminotransferase (ALT/SGPT) 41 U/L (16-63) Alkaline Phosphatase 119 U/L (46-116) Total Protein 5.6 g/dL (6.4-8.2) Albumin 2.3 g/dL (3.4-5.0) Albumin/Globulin Ratio 0.7 (1.0-1.7) Micro BC g neg saba Objective Assessment IMPRESSION: 1. Gram-negative sepsis. Origin of the Gram-negative sepsis is unclear. 2. Fever and chills. 3. Nausea and vomiting. 4. Abdominal discomfort. 5. Gastroesophageal reflux disease. 6. Arthritis. Plan Plan of Care covid neg ct pending cont RAMIRO Mai MD Dec 23, 2019 07:03
[2019-12-23 07:28] VITALS: BP 122/70
[2019-12-23] MEDS: PANTOPRAZOLE IV PUSH 40 MG VIAL. IVP SCH (08:52)
[2019-12-23] MEDS: oxyCODONE/APAP 5/325 1 TAB TABLET PO PRN ×2 (08:55→15:24)
[2019-12-23] MEDS: GABAPENTIN 300 MG CAPSULE. PO SCH ×2 (08:55→20:49)
[2019-12-23] MEDS: DOCUSATE SODIUM 100 MG CAPSULE. PO SCH ×2 (08:55→20:49)
[2019-12-23] MEDS: CHOLECALCIFEROL (VITAMIN D3) 1,000 UNIT TABLET PO SCH (08:55)
[2019-12-23] MEDS: MULTIVITAMIN with MINERAL TABLET. PO SCH (08:55)
[2019-12-23 11:45] VITALS: BP 128/76
[2019-12-23] MEDS ORDERED: IOHEXOL 300 MG/ML 100ML VIAL. IV ONE (11:45)
[2019-12-23] MEDS ORDERED: IOHEXOL 240 MG/ML 50ML VIAL. PO ONE (11:45)
[2019-12-23] MEDS ORDERED: CONTRAST GIVEN. MC PRN (11:45)
--- NOTE | 2019-12-23 13:18 | RAD ---
Examination: CT chest abdomen pelvis with IV contrast HISTORY: History bacteremia COMPARISON: None available Technique: Axial CT images of the chest abdomen pelvis were performed with IV contrast. Coronal and sagittal reformats Exposure: One or more of the following individualized dose reduction techniques were utilized for this examination: 1. Automated exposure control 2. Adjustment of the mA and/or kV according to patient size 3. Use of iterative reconstruction technique Findings: The central airways are patent. Mild aortic atherosclerosis. Intrathoracic stomach. No radiologically significant mediastinal lymphadenopathy. Mild left lung base airspace opacities likely atelectasis or infiltrate. The liver, spleen, adrenals grossly appears unremarkable. Cholecystectomy clips identified. Mild to moderate inflammatory fat stranding identified about the pancreas with dilated appearing pancreatic duct and a calcification identified in the pancreas. The pancreatic duct measuring 7 mm. Distal to this calcification the pancreatic duct is dilated. The liver, spleen, adrenals grossly appears unremarkable: History indicates identified. The small bowel is nondilated. Appendix is normal. Feces and gas noted in the colon. Few sigmoid colon diverticulosis identified. Urinary bladder is mildly distended. Minimal fat stranding identified about the urinary bladder Bilateral kidneys enhance symmetrically. Mild aortic atherosclerosis. Mild degenerative changes thoracic and lumbar spine. IMPRESSION: 1. Inflammatory fat stranding identified about the pancreas likely acute pancreatitis. There are calcifications identified in the pancreas with the largest measuring 7 mm in the proximal body of the pancreas with dilated appearing pancreatic duct distal to this calcification. 2. Mild fat stranding identified about the urinary bladder. Correlate with lab values. 3. Sigmoid colon diverticulosis. 4. Minimal bibasilar lung atelectasis. Electronically signed by: Mahad Heard MD (12/23/2019 1:15 PM) [id number]
--- NOTE | 2019-12-23 13:24 | PDOC ---
G I PROGRESS NOTE Subjective Feeling much better. No pain, N, V. Physical Exam Lungs clear. RRR Abdomen soft, not tender nor distended. Review of Relevant I have reviewed the following items joel (where applicable) has been applied. Labs Laboratory Tests Test 12/21/19 18:00 12/21/19 19:20 12/21/19 20:30 12/23/19 04:00 White Blood Count 7.2 x10^3/uL (4.0-11.0) 9.4 x10^3/uL (4.0-11.0) Red Blood Count 4.62 x10^6/uL (4.30-5.70) 4.18 x10^6/uL (4.30-5.70) Hemoglobin 14.6 g/dL (13.0-17.5) 13.1 g/dL (13.0-17.5) Hematocrit 42.9 % (39.0-53.0) 39.1 % (39.0-53.0) Mean Corpuscular Volume 93 fL (79-100) 94 fL (79-100) Mean Corpuscular Hemoglobin 32 pg (25-35) 31 pg (25-35) Mean Corpuscular Hemoglobin Concent 34 g/dL (31-37) 34 g/dL (31-37) Red Cell Distribution Width 13.7 % (11.5-14.5) 14.4 % (11.5-14.5) Platelet Count 115 x10^3/uL (140-400) 99 x10^3/uL (140-400) Neutrophils (%) (Auto) 94 % (31-73) 77 % (31-73) Lymphocytes (%) (Auto) 5 % (24-48) 14 % (24-48) Monocytes (%) (Auto) 1 % (0-9) 7 % (0-9) Eosinophils (%) (Auto) 0 % (0-3) 1 % (0-3) Basophils (%) (Auto) 0 % (0-3) 1 % (0-3) Neutrophils # (Auto) 6.8 x10^3/uL (1.8-7.7) 7.3 x10^3/uL (1.8-7.7) Lymphocytes # (Auto) 0.3 x10^3/uL (1.0-4.8) 1.3 x10^3/uL (1.0-4.8) Monocytes # (Auto) 0.1 x10^3/uL (0.0-1.1) 0.7 x10^3/uL (0.0-1.1) Eosinophils # (Auto) 0.0 x10^3/uL (0.0-0.7) 0.1 x10^3/uL (0.0-0.7) Basophils # (Auto) 0.0 x10^3/uL (0.0-0.2) 0.0 x10^3/uL (0.0-0.2) Segmented Neutrophils % 64 % (35-66) Band Neutrophils % 31 % (0-9) Lymphocytes % 5 % (24-48) Platelet Estimate Decreased (ADEQUATE) Prothrombin Time 14.5 SEC (11.7-14.0) Prothromb Time International Ratio 1.2 (0.8-1.1) Activated Partial Thromboplast Time 26 SEC (24-38) D-Dimer (Carolyn) 1.42 ug/mlFEU (0.00-0.50) Sodium Level 138 mmol/L (136-145) 141 mmol/L (136-145) Potassium Level 3.9 mmol/L (3.5-5.1) 4.1 mmol/L (3.5-5.1) Chloride Level 103 mmol/L (98-107) 108 mmol/L (98-107) Carbon Dioxide Level 27 mmol/L (21-32) 26 mmol/L (21-32) Anion Gap 8 (6-14) 7 (6-14) Blood Urea Nitrogen 11 mg/dL (8-26) 17 mg/dL (8-26) Creatinine 1.2 mg/dL (0.7-1.3) 0.8 mg/dL (0.7-1.3) Estimated GFR (Cockcroft-Gault) 59.5 95.0 BUN/Creatinine Ratio 9 (6-20) 21 (6-20) Glucose Level 93 mg/dL (70-99) 85 mg/dL (70-99) Lactic Acid Level 2.2 mmol/L (0.4-2.0) Calcium Level 8.5 mg/dL (8.5-10.1) 8.5 mg/dL (8.5-10.1) Transferrin 217 mg/dL (177-329) Total Bilirubin 2.1 mg/dL (0.2-1.0) 0.9 mg/dL (0.2-1.0) Aspartate Amino Transf (AST/SGOT) 68 U/L (15-37) 22 U/L (15-37) Alanine Aminotransferase (ALT/SGPT) 45 U/L (16-63) 41 U/L (16-63) Alkaline Phosphatase 128 U/L (46-116) 119 U/L (46-116) Lactate Dehydrogenase 183 U/L (85-227) Creatine Kinase 85 U/L (39-308) Troponin I Quantitative 0.018 ng/mL (0.000-0.055) C-Reactive Protein, Quantitative 94.3 mg/L (0-3.3) Total Protein 6.4 g/dL (6.4-8.2) 5.6 g/dL (6.4-8.2) Albumin 2.8 g/dL (3.4-5.0) 2.3 g/dL (3.4-5.0) Albumin/Globulin Ratio 0.8 (1.0-1.7) 0.7 (1.0-1.7) Lipase 555 U/L (73-393) Procalcitonin 6.72 ng/mL (0.00-0.10) Urine Collection Type Unknown Urine Color Dk yellow Urine Clarity Clear Urine pH 8.5 (<5.0-8.0) Urine Specific Barclay 1.015 (1.000-1.030) Urine Protein Negative mg/dL (NEG-TRACE) Urine Glucose (UA) Negative mg/dL (NEG) Urine Ketones (Stick) 40 mg/dL (NEG) Urine Blood Negative (NEG) Urine Nitrite Negative (NEG) Urine Bilirubin Negative (NEG) Urine Urobilinogen Dipstick 1.0 mg/dL (0.2 mg/dL) Urine Leukocyte Esterase Negative (NEG) Urine RBC 0 /HPF (0-2) Urine WBC 0 /HPF (0-4) Urine Squamous Epithelial Cells Occ /LPF Urine Bacteria 0 /HPF (0-FEW) Urine Mucus Mod /LPF Coronavirus (PCR) Not detected (Not Detected) Laboratory Tests Test 12/23/19 04:00 White Blood Count 9.4 x10^3/uL (4.0-11.0) Red Blood Count 4.18 x10^6/uL (4.30-5.70) Hemoglobin 13.1 g/dL (13.0-17.5) Hematocrit 39.1 % (39.0-53.0) Mean Corpuscular Volume 94 fL (79-100) Mean Corpuscular Hemoglobin 31 pg (25-35) Mean Corpuscular Hemoglobin Concent 34 g/dL (31-37) Red Cell Distribution Width 14.4 % (11.5-14.5) Platelet Count 99 x10^3/uL (140-400) Neutrophils (%) (Auto) 77 % (31-73) Lymphocytes (%) (Auto) 14 % (24-48) Monocytes (%) (Auto) 7 % (0-9) Eosinophils (%) (Auto) 1 % (0-3) Basophils (%) (Auto) 1 % (0-3) Neutrophils # (Auto) 7.3 x10^3/uL (1.8-7.7) Lymphocytes # (Auto) 1.3 x10^3/uL (1.0-4.8) Monocytes # (Auto) 0.7 x10^3/uL (0.0-1.1) Eosinophils # (Auto) 0.1 x10^3/uL (0.0-0.7) Basophils # (Auto) 0.0 x10^3/uL (0.0-0.2) Sodium Level 141 mmol/L (136-145) Potassium Level 4.1 mmol/L (3.5-5.1) Chloride Level 108 mmol/L (98-107) Carbon Dioxide Level 26 mmol/L (21-32) Anion Gap 7 (6-14) Blood Urea Nitrogen 17 mg/dL (8-26) Creatinine 0.8 mg/dL (0.7-1.3) Estimated GFR (Cockcroft-Gault) 95.0 BUN/Creatinine Ratio 21 (6-20) Glucose Level 85 mg/dL (70-99) Calcium Level 8.5 mg/dL (8.5-10.1) Total Bilirubin 0.9 mg/dL (0.2-1.0) Aspartate Amino Transf (AST/SGOT) 22 U/L (15-37) Alanine Aminotransferase (ALT/SGPT) 41 U/L (16-63) Alkaline Phosphatase 119 U/L (46-116) Total Protein 5.6 g/dL (6.4-8.2) Albumin 2.3 g/dL (3.4-5.0) Albumin/Globulin Ratio 0.7 (1.0-1.7) Microbiology 12/21/19 Blood Culture - Preliminary, Resulted NO GROWTH AFTER 1 DAY Normal LFT's. Vitals/I & O Vital Sign - Last 24 Hours 12/22/19 12/22/19 12/22/19 12/22/19 13:43 14:43 15:00 19:52 Temp 99.1 98.5 99.1 98.5 Pulse 78 79 Resp 18 18 18 18 B/P (MAP) 162/88 (112) 137/86 (103) Pulse Ox 98 95 O2 Delivery Room Air Room Air Room Air 12/22/19 12/22/19 12/22/19 12/22/19 20:00 20:54 21:54 23:13 O2 Delivery Room Air Room Air Room Air Room Air O2 Flow Rate 2.0 12/22/19 12/23/19 12/23/19 12/23/19 23:19 00:13 03:25 07:28 Temp 98.9 98.2 98.4 98.9 98.2 98.4 Pulse 84 79 74 Resp 16 16 18 B/P (MAP) 154/89 (110) 125/75 (92) 122/70 (87) Pulse Ox 92 91 96 O2 Delivery Room Air Room Air Room Air Room Air 12/23/19 12/23/19 12/23/19 08:55 09:55 11:45 Temp 97.4 97.4 Pulse 72 Resp 17 18 20 B/P (MAP) 128/76 (93) Pulse Ox 98 O2 Delivery Room Air Room Air Room Air Intake and Output 12/22/19 12/22/19 12/23/19 15:00 23:00 07:00 Intake Total 120 ml 0 ml Output Total 400 ml 200 ml Balance -280 ml -[address]: Findings: The central airways are patent. Mild aortic atherosclerosis. Intrathoracic stomach. No radiologically significant mediastinal lymphadenopathy. Mild left lung base airspace opacities likely atelectasis or infiltrate. The liver, spleen, adrenals grossly appears unremarkable. Cholecystectomy clips identified. Mild to moderate inflammatory fat stranding identified about the pancreas with dilated appearing pancreatic duct and a calcification identified in the pancreas. The pancreatic duct measuring 7 mm. Distal to this calcification the pancreatic duct is dilated. The liver, spleen, adrenals grossly appears unremarkable: History indicates identified. The small bowel is nondilated. Appendix is normal. Feces and gas noted in the colon. Few sigmoid colon diverticulosis identified. Urinary bladder is mildly distended. Minimal fat stranding identified about the urinary bladder Bilateral kidneys enhance symmetrically. Mild aortic atherosclerosis. Mild degenerative changes thoracic and lumbar spine. IMPRESSION: 1. Inflammatory fat stranding identified about the pancreas likely acute pancreatitis. There are calcifications identified in the pancreas with the largest measuring 7 mm in the proximal body of the pancreas with dilated appearing pancreatic duct distal to this calcification. 2. Mild fat stranding identified about the urinary bladder. Correlate with lab values. 3. Sigmoid colon diverticulosis. 4. Minimal bibasilar lung atelectasis. Electronically signed by: Mahad Heard MD (12/23/2019 1:15 PM) [id number] Problem List Problems Medical Problems: (1) Fever Status: Acute Assessment Seems from CT has chronic pancreatitis with PD stone; not clear this would be a source of bacteremia. No apparent bile duct issue. Hematemesis, seems minor, ceased. GNR bacteremia, source? Plan of Care Note Continue antibiotics, PPI. Will allow clears and observe. Await ID/sens on GNR. Justicifation of Admission Dx: Justifications for Admission: Justification of Admission Dx: Yes CHILANGO CHANG MD Dec 23, 2019 13:24
--- NOTE | 2019-12-23 14:21 | PDOC ---
[facility] PROGRESS NOTE Date of Service DOS: DATE: 12/23/19 TIME: 14:19 Chief Complaint Chief Complaint Gram-negative sepsis unclear source Hematemesis History of GERD History of psoriasis Mild lactic acidemia Mild malnutrition Thrombocytopenia likely due to bacteremia versus clumping Chronic pancreatitis with PD stone? Admit to medicine Appreciate ID recommendations Appreciate GI recommendations Pending CT abdomen pelvis DC IV vancomycin and continue IV Zosyn Pending further blood culture sensitivities Will obtain peripheral blood smear for thrombocytopenia Lovenox for DVT prophylaxis ADA diet Full code Discussed with RN and SW Disposition inpatient care, pending blood culture sensitivities Surrogate decision maker is self History of Present Illness History of Present Illness 74-year-old gentleman, who came in with fever and chills. The patient had some nausea and vomiting, little stomach upset, maybe he may have seen some blood in the vomit. The patient's blood culture is positive with Gram-negative saba. The patient denies any nausea or vomiting now. The patient denies any chest pain or shortness of breath. Denies any abdominal pain right now. Denies any urinary symptoms or bowel symptoms. The patient had about 4 times this kind of symptoms happen in last 6 months and two times he went to the doctor and they did COVID, which was negative and the third time, it was mild, so he did not go to the doctor and fourth time now, he is here, which was the worst fever and chills. The patient has high temperature, max was 99.5 here. Blood pressure has been stable and of course the Gram-negative saba in the blood. The patient is on vanc and Zosyn 12/23/2019 No acute events overnight. No more hematemesis. Patient feels better at this point. Patient currently evaluated by gastroenterology and thinks that there may be stone in the pancreatic duct that may be causing the sepsis. Patient's c teixeira, labs, images were reviewed and discussed with RN Vitals/I&O Vitals/I&O: Vital Signs Date Time Temp Pulse Resp B/P (MAP) Pulse Ox O2 Delivery O2 Flow Rate FiO2 12/23/19 11:45 97.4 72 20 128/76 (93) 98 Room Air 97.4 12/22/19 20:00 2.0 I & O 12/22/19 12/22/19 12/23/19 15:00 23:00 07:00 Intake Total 120 ml 0 ml Output Total 400 ml 200 ml Balance -280 ml -200 ml Physical Exam Physical Exam: GENERAL: Alert and oriented gentleman, not in any distress. VITAL SIGNS: Stable HEENT: NAD. NECK: Supple, no JVP, no lymphadenopathy. LUNGS: Clear. HEART: S1, S2 regular. ABDOMEN: Benign. EXTREMITIES: No edema or cyanosis. SKIN: Unremarkable. NEUROLOGIC: The patient is alert, awake and appropriate. No focal neurologic deficit. The patient's cervical spine area where the injection was done, there are no signs of infection as well as before then, he had a knee injection done, which was unremarkable. Labs Labs: Laboratory Tests Test 12/23/19 04:00 White Blood Count 9.4 x10^3/uL (4.0-11.0) Red Blood Count 4.18 x10^6/uL (4.30-5.70) Hemoglobin 13.1 g/dL (13.0-17.5) Hematocrit 39.1 % (39.0-53.0) Mean Corpuscular Volume 94 fL (79-100) Mean Corpuscular Hemoglobin 31 pg (25-35) Mean Corpuscular Hemoglobin Concent 34 g/dL (31-37) Red Cell Distribution Width 14.4 % (11.5-14.5) Platelet Count 99 x10^3/uL (140-400) Neutrophils (%) (Auto) 77 % (31-73) Lymphocytes (%) (Auto) 14 % (24-48) Monocytes (%) (Auto) 7 % (0-9) Eosinophils (%) (Auto) 1 % (0-3) Basophils (%) (Auto) 1 % (0-3) Neutrophils # (Auto) 7.3 x10^3/uL (1.8-7.7) Lymphocytes # (Auto) 1.3 x10^3/uL (1.0-4.8) Monocytes # (Auto) 0.7 x10^3/uL (0.0-1.1) Eosinophils # (Auto) 0.1 x10^3/uL (0.0-0.7) Basophils # (Auto) 0.0 x10^3/uL (0.0-0.2) Sodium Level 141 mmol/L (136-145) Potassium Level 4.1 mmol/L (3.5-5.1) Chloride Level 108 mmol/L (98-107) Carbon Dioxide Level 26 mmol/L (21-32) Anion Gap 7 (6-14) Blood Urea Nitrogen 17 mg/dL (8-26) Creatinine 0.8 mg/dL (0.7-1.3) Estimated GFR (Cockcroft-Gault) 95.0 BUN/Creatinine Ratio 21 (6-20) Glucose Level 85 mg/dL (70-99) Calcium Level 8.5 mg/dL (8.5-10.1) Total Bilirubin 0.9 mg/dL (0.2-1.0) Aspartate Amino Transf (AST/SGOT) 22 U/L (15-37) Alanine Aminotransferase (ALT/SGPT) 41 U/L (16-63) Alkaline Phosphatase 119 U/L (46-116) Total Protein 5.6 g/dL (6.4-8.2) Albumin 2.3 g/dL (3.4-5.0) Albumin/Globulin Ratio 0.7 (1.0-1.7) Assessment and Plan Assessmemt and Plan Problems Medical Problems: (1) Fever Status: Acute Comment Review of Relevant I have reviewed the following items joel (where applicable) has been applied. Medications: Current Medications Medications (Trade) Dose Ordered Sig/Jourdan Route PRN Reason Start Time Stop Time Status Last Admin Dose Admin Docusate Sodium (Colace) 100 mg BID PO 12/22/19 21:00 12/23/19 08:55 Gabapentin (Neurontin) 300 mg BID PO 12/22/19 21:00 12/23/19 08:55 Enoxaparin Sodium (Lovenox 40mg Syringe) 40 mg Q24H SQ 12/22/19 16:00 12/22/19 16:04 Pantoprazole Sodium (PROTONIX VIAL for IV PUSH) 40 mg DAILYAC IVP 12/23/19 07:30 12/23/19 08:52 Oxycodone/ Acetaminophen (Percocet 5/325) 1 tab 1X ONCE PO 12/22/19 23:15 12/22/19 23:16 DC 12/22/19 23:13 Justifications for Admission Other Justification THONY PICKENS MD Dec 23, 2019 14:21
[2019-12-23 15:17] VITALS: BP 155/90
[2019-12-23] MEDS: ENOXAPARIN 40 MG/0.4 ML SYRINGE. SQ SCH (17:59)
[2019-12-23 18:44] LABS: CALCIUM 8.8 mg/dL (8.5-10.1); CREATININE 0.9 mg/dL (0.7-1.3); GFR 82.9; MAGNESIUM 2.2 mg/dL (1.8-2.4); PHOSPHORUS 2.8 mg/dL (2.6-4.7); POTASSIUM 3.9 mmol/L (3.5-5.1)
[2019-12-23 19:00] VITALS: BP 132/89
[2019-12-23] MEDS: oxyCODONE/APAP 10/325 1 TAB TABLET PO PRN (20:50)
[2019-12-23] MEDS: LACTOBACILLUS RHAMNOSUS GG 1 CAPSULE. PO SCH (21:00)
[2019-12-23 23:00] VITALS: BP 163/94
[2019-12-24] MEDS: PIPERACILLIN/TAZOBACTAM 3.375 GM in IV NORMAL SALINE 50ML 50 ML IV SCH ×4 (01:08→17:28)
[2019-12-24 03:00] VITALS: BP 136/86
[2019-12-24 07:15] VITALS: BP 155/93
[2019-12-24] MEDS: MULTIVITAMIN with MINERAL TABLET. PO SCH (09:00)
--- NOTE | 2019-12-24 09:41 | PDOC ---
Infectious Disease Note Subjective Subjective pt is feeling better ROS ROS No nausea vomiting diarrhea or fever Vital Sign Vital Signs Vital Signs Date Time Temp Pulse Resp B/P (MAP) Pulse Ox O2 Delivery O2 Flow Rate FiO2 12/24/19 07:15 97.8 81 14 155/93 (113) 90 Room Air 97.8 Physical Exam PHYSICAL EXAM GENERAL: Alert and oriented gentleman, not in any distress. VITAL SIGNS: Stable HEENT: NAD. NECK: Supple, no JVP, no lymphadenopathy. LUNGS: Clear. HEART: S1, S2 regular. ABDOMEN: Benign. EXTREMITIES: No edema or cyanosis. SKIN: Unremarkable. NEUROLOGIC: The patient is alert, awake and appropriate. No focal neurologic deficit. The patient's cervical spine area where the injection was done, there are no signs of infection as well as before then, he had a knee injection done, which was unremarkable. Labs Lab Laboratory Tests Test 12/23/19 17:25 Sodium Level 139 mmol/L (136-145) Potassium Level 3.9 mmol/L (3.5-5.1) Chloride Level 105 mmol/L (98-107) Carbon Dioxide Level 27 mmol/L (21-32) Anion Gap 7 (6-14) Blood Urea Nitrogen 17 mg/dL (8-26) Creatinine 0.9 mg/dL (0.7-1.3) Estimated GFR (Cockcroft-Gault) 82.9 Glucose Level 79 mg/dL (70-99) Calcium Level 8.8 mg/dL (8.5-10.1) Phosphorus Level 2.8 mg/dL (2.6-4.7) Magnesium Level 2.2 mg/dL (1.8-2.4) Micro BC g neg saba BLOOD CULTURE LC Final Final GRAM NEGATIVE RODS FINAL ID= [ESCHERICHIA COLI] ESCHERICHIA COLI ANTIMICROBIAL SUSCEPTIBILITY Final Comment NEG MARIANA 56 ESCHERICHIA COLI ANTIBIOTIC RESULT INTERPRETATION AMPICILLIN/SULBACTAM <=4/2 S AMIKACIN <=16 S AMPICILLIN <=8 S AMOXICILLIN/K CLAVULANATE <=8/4 S AZTREONAM <=4 S CEFTRIAXONE <=1 S CEFTAZIDIME <=1 S CEFOTAXIME <=2 S CEFOXITIN <=8 S CIPROFLOXACIN <=0.25 S CEFEPIME <=2 S CEFUROXIME <=4 S CEFTAZIDIME/AVIBACTAM <=4 S ERTAPENEM <=0.5 S GENTAMICIN <=2 S LEVOFLOXACIN <=0.5 S MEROPENEM <=1 S PIPERACILLIN/TAZOBACTAM <=8 S TRIMETHOPRIM/SULFAMETHOXAZOLE <=0.5/9.5 S TETRACYCLINE <=4 S TOBRAMYCIN <=2 S Unless otherwise specified, Testing Performed by: [address] [address] For Inquires, the Physician may contact the Microbiology department at [phone] Objective Assessment IMPRESSION: 1. Gram-negative sepsis. Origin of the Gram-negative sepsis is unclear. 2. Fever and chills. 3. Nausea and vomiting. 4. Abdominal discomfort. 5. Gastroesophageal reflux disease. 6. Arthritis. Plan Plan of Care covid neg ct noted cont RAMIRO Mai MD Dec 24, 2019 09:41
[2019-12-24] MEDS: LACTOBACILLUS RHAMNOSUS GG 1 CAPSULE. PO SCH ×2 (10:03→22:01)
[2019-12-24] MEDS: DOCUSATE SODIUM 100 MG CAPSULE. PO SCH ×2 (10:03→22:02)
[2019-12-24] MEDS: GABAPENTIN 300 MG CAPSULE. PO SCH ×2 (10:03→22:02)
[2019-12-24] MEDS: PANTOPRAZOLE IV PUSH 40 MG VIAL. IVP SCH (10:03)
[2019-12-24] MEDS: CHOLECALCIFEROL (VITAMIN D3) 1,000 UNIT TABLET PO SCH (10:03)
[2019-12-24] MEDS: oxyCODONE/APAP 5/325 1 TAB TABLET PO PRN (10:04)
[2019-12-24 11:05] VITALS: BP 138/77
--- NOTE | 2019-12-24 12:52 | PDOC ---
G I PROGRESS NOTE Subjective No complaints. Says never heavy drinker. [place]. Physical Exam Lungs clear. RRR Abdomen soft, not tender nor distended. Review of Relevant I have reviewed the following items joel (where applicable) has been applied. Labs Laboratory Tests Test 12/23/19 04:00 12/23/19 17:25 White Blood Count 9.4 x10^3/uL (4.0-11.0) Red Blood Count 4.18 x10^6/uL (4.30-5.70) Hemoglobin 13.1 g/dL (13.0-17.5) Hematocrit 39.1 % (39.0-53.0) Mean Corpuscular Volume 94 fL (79-100) Mean Corpuscular Hemoglobin 31 pg (25-35) Mean Corpuscular Hemoglobin Concent 34 g/dL (31-37) Red Cell Distribution Width 14.4 % (11.5-14.5) Platelet Count 99 x10^3/uL (140-400) Neutrophils (%) (Auto) 77 % (31-73) Lymphocytes (%) (Auto) 14 % (24-48) Monocytes (%) (Auto) 7 % (0-9) Eosinophils (%) (Auto) 1 % (0-3) Basophils (%) (Auto) 1 % (0-3) Neutrophils # (Auto) 7.3 x10^3/uL (1.8-7.7) Lymphocytes # (Auto) 1.3 x10^3/uL (1.0-4.8) Monocytes # (Auto) 0.7 x10^3/uL (0.0-1.1) Eosinophils # (Auto) 0.1 x10^3/uL (0.0-0.7) Basophils # (Auto) 0.0 x10^3/uL (0.0-0.2) Sodium Level 141 mmol/L (136-145) 139 mmol/L (136-145) Potassium Level 4.1 mmol/L (3.5-5.1) 3.9 mmol/L (3.5-5.1) Chloride Level 108 mmol/L (98-107) 105 mmol/L (98-107) Carbon Dioxide Level 26 mmol/L (21-32) 27 mmol/L (21-32) Anion Gap 7 (6-14) 7 (6-14) Blood Urea Nitrogen 17 mg/dL (8-26) 17 mg/dL (8-26) Creatinine 0.8 mg/dL (0.7-1.3) 0.9 mg/dL (0.7-1.3) Estimated GFR (Cockcroft-Gault) 95.0 82.9 BUN/Creatinine Ratio 21 (6-20) Glucose Level 85 mg/dL (70-99) 79 mg/dL (70-99) Calcium Level 8.5 mg/dL (8.5-10.1) 8.8 mg/dL (8.5-10.1) Total Bilirubin 0.9 mg/dL (0.2-1.0) Aspartate Amino Transf (AST/SGOT) 22 U/L (15-37) Alanine Aminotransferase (ALT/SGPT) 41 U/L (16-63) Alkaline Phosphatase 119 U/L (46-116) Total Protein 5.6 g/dL (6.4-8.2) Albumin 2.3 g/dL (3.4-5.0) Albumin/Globulin Ratio 0.7 (1.0-1.7) Phosphorus Level 2.8 mg/dL (2.6-4.7) Magnesium Level 2.2 mg/dL (1.8-2.4) Laboratory Tests Test 12/23/19 17:25 Sodium Level 139 mmol/L (136-145) Potassium Level 3.9 mmol/L (3.5-5.1) Chloride Level 105 mmol/L (98-107) Carbon Dioxide Level 27 mmol/L (21-32) Anion Gap 7 (6-14) Blood Urea Nitrogen 17 mg/dL (8-26) Creatinine 0.9 mg/dL (0.7-1.3) Estimated GFR (Cockcroft-Gault) 82.9 Glucose Level 79 mg/dL (70-99) Calcium Level 8.8 mg/dL (8.5-10.1) Phosphorus Level 2.8 mg/dL (2.6-4.7) Magnesium Level 2.2 mg/dL (1.8-2.4) Microbiology 12/21/19 Blood Culture - Preliminary, Resulted NO GROWTH AFTER 2 DAYS E.coli parker-sensitive. Vitals/I & O Vital Sign - Last 24 Hours 8/29/20 8/29/20 8/29/20 8/29/20 15:17 15:24 16:24 19:00 Temp 98.1 99.0 98.1 99.0 Pulse 80 85 Resp 18 18 17 18 B/P (MAP) 155/90 (111) 132/89 (103) Pulse Ox 94 93 O2 Delivery Room Air Room Air Room Air Room Air 12/23/19 12/23/19 12/23/19 12/23/19 20:05 20:50 21:50 23:00 Temp 98.7 98.7 Pulse 83 Resp 18 20 B/P (MAP) 163/94 (117) Pulse Ox 92 O2 Delivery Room Air Room Air Room Air Room Air 12/24/19 12/24/19 12/24/19 12/24/19 03:00 07:15 10:04 11:04 Temp 98.2 97.8 98.2 97.8 Pulse 72 81 Resp 20 14 18 17 B/P (MAP) 136/86 (103) 155/93 (113) Pulse Ox 93 90 O2 Delivery Room Air Room Air Room Air Room Air 12/24/19 11:05 Temp 98.2 98.2 Pulse 66 Resp 18 B/P (MAP) 138/77 (97) Pulse Ox 94 O2 Delivery Room Air Intake and Output 12/23/19 12/23/19 12/24/19 15:00 23:00 07:00 Intake Total 450 ml 600 ml Output Total 600 ml 800 ml Balance -600 ml -350 ml 600 ml Problem List Problems Medical Problems: (1) Fever Status: Acute Assessment E.coli bacteremia, source unclear. \ Pancreatic stone; usually seen in chronic pancreatitis. No real risk factors, though has been [place] so tropical pancreatitis? No clear biliary source. Plan of Care Note Continue as now. Consider MRCP to more definitively r/o biliary issue. Justicifation of Admission Dx: Justifications for Admission: Justification of Admission Dx: Yes CHILANGO CHANG MD Dec 24, 2019 12:52
[2019-12-24 13:11] LABS: BASO # 0.1 x10^3/uL (0.0-0.2); BASO % 1 % (0-3); EOS # 0.1 x10^3/uL (0.0-0.7); EOS % 1 % (0-3); HEMOGLOBIN 13.8 g/dL (13.0-17.5); LYMPH # 0.9 x10^3/uL (1.0-4.8); LYMPH % 17 % (24-48); MEAN CORPUSCULAR HEMOGLOBIN 31 pg (25-35); MEAN CORPUSCULAR HGB CONC 33 g/dL (31-37); MEAN CORPUSCULAR VOLUME 93 fL (79-100); MONO # 0.4 x10^3/uL (0.0-1.1); MONO % 7 % (0-9); NEUT # 3.9 x10^3/uL (1.8-7.7); NEUT % 73 % (31-73); PLATELET COUNT 123 x10^3/uL (140-400); RED BLOOD COUNT 4.51 x10^6/uL (4.30-5.70); WHITE BLOOD COUNT 5.3 x10^3/uL (4.0-11.0)
[2019-12-24 13:30] LABS: ALBUMIN 2.5 g/dL (3.4-5.0); ALBUMIN/GLOBULIN RATIO 0.6 (1.0-1.7); CALCIUM 8.3 mg/dL (8.5-10.1); CREATININE 0.9 mg/dL (0.7-1.3); GFR 82.9; POTASSIUM 3.4 mmol/L (3.5-5.1); TOTAL BILIRUBIN 1.1 mg/dL (0.2-1.0); TOTAL PROTEIN 6.4 g/dL (6.4-8.2)
[2019-12-24 15:20] VITALS: BP 162/94
[2019-12-24] MEDS: ENOXAPARIN 40 MG/0.4 ML SYRINGE. SQ SCH (17:27)
--- NOTE | 2019-12-24 17:59 | PDOC ---
[facility] PROGRESS NOTE Date of Service DOS: DATE: 12/24/19 TIME: 17:54 Chief Complaint Chief Complaint E. coli sepsis unclear source Acute on chronic pancreatitis with dilated pancreatic duct? Hematemesis History of GERD History of psoriasis Mild lactic acidemia Mild malnutrition Thrombocytopenia likely due to bacteremia versus clumping Chronic pancreatitis with PD stone? Pending MRCP Appreciate ID recommendations Appreciate GI recommendations Pending CT abdomen pelvis continue IV Zosyn Pending further blood culture sensitivities Will obtain peripheral blood smear for thrombocytopenia Lovenox for DVT prophylaxis ADA diet Full code Discussed with RN and SW Disposition inpatient care, pending blood culture sensitivities Surrogate decision maker is self History of Present Illness History of Present Illness 74-year-old gentleman, who came in with fever and chills. The patient had some nausea and vomiting, little stomach upset, maybe he may have seen some blood in the vomit. The patient's blood culture is positive with Gram-negative saba. The patient denies any nausea or vomiting now. The patient denies any chest pain or shortness of breath. Denies any abdominal pain right now. Denies any urinary symptoms or bowel symptoms. The patient had about 4 times this kind of symptoms happen in last 6 months and two times he went to the doctor and they did COVID, which was negative and the third time, it was mild, so he did not go to the doctor and fourth time now, he is here, which was the worst fever and chills. The patient has high temperature, max was 99.5 here. Blood pressure has been stable and of course the Gram-negative saba in the blood. The patient is on vanc and Zosyn 12/23/2019 No acute events overnight. No more hematemesis. Patient feels better at this point. Patient currently evaluated by gastroenterology and thinks that there may be stone in the pancreatic duct that may be causing the sepsis. Patient's chart, labs, images were reviewed and discussed with RN 12/24/2019 No acute events overnight. No nausea vomiting or hematemesis. Abdominal pain has improved. No evidence of jaundice. Tolerating diet. Patient's chart, labs, images were reviewed and discussed with RN. Patient states that he had spent time in the tropics during [place] that could contribute to the etiology of his pancreatitis. Vitals/I&O Vitals/I&O: Vital Signs Date Time Temp Pulse Resp B/P (MAP) Pulse Ox O2 Delivery O2 Flow Rate FiO2 12/24/19 15:20 98.6 76 20 162/94 (116) 94 Room Air 98.6 I & O 12/23/19 12/23/19 12/24/19 15:00 23:00 07:00 Intake Total 450 ml 600 ml Output Total 600 ml 800 ml Balance -600 ml -350 ml 600 ml Physical Exam Physical Exam: GENERAL: Alert and oriented gentleman, not in any distress. VITAL SIGNS: Stable HEENT: NAD. NECK: Supple, no JVP, no lymphadenopathy. LUNGS: Clear. HEART: S1, S2 regular. ABDOMEN: Benign. EXTREMITIES: No edema or cyanosis. SKIN: Unremarkable. NEUROLOGIC: The patient is alert, awake and appropriate. No focal neurologic deficit. The patient's cervical spine area where the injection was done, there are no signs of infection as well as before then, he had a knee injection done, which was unremarkable. Labs Labs: Laboratory Tests Test 12/24/19 12:25 White Blood Count 5.3 x10^3/uL (4.0-11.0) Red Blood Count 4.51 x10^6/uL (4.30-5.70) Hemoglobin 13.8 g/dL (13.0-17.5) Hematocrit 42.0 % (39.0-53.0) Mean Corpuscular Volume 93 fL (79-100) Mean Corpuscular Hemoglobin 31 pg (25-35) Mean Corpuscular Hemoglobin Concent 33 g/dL (31-37) Red Cell Distribution Width 14.0 % (11.5-14.5) Platelet Count 123 x10^3/uL (140-400) Neutrophils (%) (Auto) 73 % (31-73) Lymphocytes (%) (Auto) 17 % (24-48) Monocytes (%) (Auto) 7 % (0-9) Eosinophils (%) (Auto) 1 % (0-3) Basophils (%) (Auto) 1 % (0-3) Neutrophils # (Auto) 3.9 x10^3/uL (1.8-7.7) Lymphocytes # (Auto) 0.9 x10^3/uL (1.0-4.8) Monocytes # (Auto) 0.4 x10^3/uL (0.0-1.1) Eosinophils # (Auto) 0.1 x10^3/uL (0.0-0.7) Basophils # (Auto) 0.1 x10^3/uL (0.0-0.2) Sodium Level 141 mmol/L (136-145) Potassium Level 3.4 mmol/L (3.5-5.1) Chloride Level 105 mmol/L (98-107) Carbon Dioxide Level 27 mmol/L (21-32) Anion Gap 9 (6-14) Blood Urea Nitrogen 15 mg/dL (8-26) Creatinine 0.9 mg/dL (0.7-1.3) Estimated GFR (Cockcroft-Gault) 82.9 BUN/Creatinine Ratio 17 (6-20) Glucose Level 72 mg/dL (70-99) Calcium Level 8.3 mg/dL (8.5-10.1) Total Bilirubin 1.1 mg/dL (0.2-1.0) Aspartate Amino Transf (AST/SGOT) 12 U/L (15-37) Alanine Aminotransferase (ALT/SGPT) 25 U/L (16-63) Alkaline Phosphatase 128 U/L (46-116) Total Protein 6.4 g/dL (6.4-8.2) Albumin 2.5 g/dL (3.4-5.0) Albumin/Globulin Ratio 0.6 (1.0-1.7) Assessment and Plan Assessmemt and Plan Problems Medical Problems: (1) Fever Status: Acute Comment Review of Relevant I have reviewed the following items joel (where applicable) has been applied. Medications: Current Medications Medications (Trade) Dose Ordered Sig/Jourdan Route PRN Reason Start Time Stop Time Status Last Admin Dose Admin Lactobacillus Rhamnosus (Culturelle) 1 cap BID PO 12/23/19 21:00 12/24/19 10:03 Oxycodone/ Acetaminophen (Percocet 10/325) 1 tab HS PRN PO PAIN AT BEDTIME 12/23/19 19:30 12/23/19 20:50 Justifications for Admission Other Justification THONY PICKENS MD Dec 24, 2019 17:58
[2019-12-24 19:00] VITALS: BP 166/98
[2019-12-24] MEDS: oxyCODONE/APAP 10/325 1 TAB TABLET PO PRN (22:02)
[2019-12-24 23:00] VITALS: BP 186/94
[2019-12-25 03:07] VITALS: BP 151/95
[2019-12-25] MEDS: PIPERACILLIN/TAZOBACTAM 3.375 GM in IV NORMAL SALINE 50ML 50 ML IV SCH ×5 (06:01→17:38)
[2019-12-25 07:00] VITALS: BP 158/87
[2019-12-25] MEDS: LACTOBACILLUS RHAMNOSUS GG 1 CAPSULE. PO SCH ×2 (08:44→21:34)
[2019-12-25] MEDS: DOCUSATE SODIUM 100 MG CAPSULE. PO SCH ×2 (08:44→21:34)
[2019-12-25] MEDS: PANTOPRAZOLE IV PUSH 40 MG VIAL. IVP SCH (08:44)
[2019-12-25] MEDS: MULTIVITAMIN with MINERAL TABLET. PO SCH (08:44)
[2019-12-25] MEDS: GABAPENTIN 300 MG CAPSULE. PO SCH ×2 (08:44→21:34)
[2019-12-25] MEDS: CHOLECALCIFEROL (VITAMIN D3) 1,000 UNIT TABLET PO SCH (08:44)
--- NOTE | 2019-12-25 09:03 | PDOC ---
Infectious Disease Note Subjective: Subjective pt is feeling better Been advanced on diet Vital Signs: Vital Signs Vital Signs Date Time Temp Pulse Resp B/P (MAP) Pulse Ox O2 Delivery O2 Flow Rate FiO2 12/25/19 07:00 97.8 72 18 158/87 (110) 93 Room Air 97.8 12/24/19 22:02 2.0 Physical Exam: PHYSICAL EXAM GENERAL: Alert and oriented gentleman, not in any distress. VITAL SIGNS: Stable HEENT: NAD. NECK: Supple, no JVP, no lymphadenopathy. LUNGS: Clear. HEART: S1, S2 regular. ABDOMEN: Benign. EXTREMITIES: No edema or cyanosis. SKIN: Unremarkable. NEUROLOGIC: The patient is alert, awake and appropriate. No focal neurologic deficit. The patient's cervical spine area where the injection was done, there are no signs of infection as well as before then, he had a knee injection done, which was unremarkable. Medications: Inpatient Meds: Current Medications Medications (Trade) Dose Ordered Sig/Jourdan Start Time Stop Time Status Last Admin Dose Admin Acetaminophen (Tylenol) 650 mg PRN Q4HRS PRN 12/21/19 20:30 12/22/19 20:29 DC 12/22/19 03:06 650 MG Docusate Sodium (Colace) 100 mg BID 12/22/19 21:00 12/25/19 08:44 100 MG Enoxaparin Sodium (Lovenox 40mg Syringe) 40 mg Q24H 12/22/19 16:00 12/24/19 17:27 40 MG Gabapentin (Neurontin) 300 mg BID 12/22/19 21:00 12/25/19 08:44 300 MG Ibuprofen (Motrin) 400 mg PRN Q4HRS PRN 12/22/19 06:00 12/22/19 06:14 400 MG Info (CONTRAST GIVEN -- Rx MONITORING) 1 each PRN DAILY PRN 12/23/19 11:45 12/25/19 11:44 Iohexol (Omnipaque 240 Mg/ml) 30 ml 1X ONCE 12/23/19 11:45 12/23/19 11:46 DC Iohexol (Omnipaque 300 Mg/ml) 75 ml 1X ONCE 12/23/19 11:45 12/23/19 11:46 DC Lactobacillus Rhamnosus (Culturelle) 1 cap BID 12/23/19 21:00 12/25/19 08:44 1 CAP Multivitamins (Thera M Plus) 1 tab DAILY 12/22/19 14:00 12/23/19 08:55 1 TAB Naproxen (Naprosyn) 500 mg PRN BID PRN 12/22/19 13:00 12/22/19 13:42 500 MG Ondansetron HCl (Zofran) 4 mg PRN Q8HRS PRN 12/21/19 20:30 12/22/19 20:29 DC 12/22/19 14:55 4 MG Oxycodone/ Acetaminophen (Percocet 10/325) 1 tab HS PRN 12/23/19 19:30 12/24/19 22:02 1 TAB Oxycodone/ Acetaminophen (Percocet 5/325) 1 tab 1X ONCE 12/22/19 23:15 12/22/19 23:16 DC 12/22/19 23:13 1 TAB Pantoprazole Sodium (PROTONIX VIAL for IV PUSH) 40 mg DAILYAC 12/23/19 07:30 12/25/19 08:44 40 MG Pantoprazole Sodium (Protonix) 40 mg DAILYAC 12/22/19 14:00 12/22/19 16:50 DC 12/22/19 13:42 40 MG Piperacillin Sod/ Tazobactam Sod (Zosyn Per Pharmacy) 1 each PRN DAILY PRN 12/22/19 08:30 Piperacillin Sod/ Tazobactam Sod 3.375 gm/Sodium Chloride 50 ml @ 100 mls/hr Q6HRS 12/22/19 09:00 12/25/19 06:01 100 MLS/HR Sodium Chloride 1,000 ml @ 125 mls/hr Q8H 12/21/19 20:19 12/22/19 20:18 DC 12/22/19 12:19 125 MLS/HR Vancomycin HCl (Vanco Per Pharmacy) 1 each PRN DAILY PRN 12/22/19 08:30 12/22/19 11:36 DC Vancomycin HCl 1.75 gm/Sodium Chloride 500 ml @ 250 mls/hr 1X ONCE 12/22/19 09:30 12/22/19 11:29 DC 12/22/19 09:52 250 MLS/HR Vitamin D (Vitamin D3) 1,000 unit DAILY 12/22/19 14:00 12/25/19 08:44 1,000 UNIT Labs: Lab Laboratory Tests Test 12/24/19 12:25 White Blood Count 5.3 x10^3/uL (4.0-11.0) Red Blood Count 4.51 x10^6/uL (4.30-5.70) Hemoglobin 13.8 g/dL (13.0-17.5) Hematocrit 42.0 % (39.0-53.0) Mean Corpuscular Volume 93 fL (79-100) Mean Corpuscular Hemoglobin 31 pg (25-35) Mean Corpuscular Hemoglobin Concent 33 g/dL (31-37) Red Cell Distribution Width 14.0 % (11.5-14.5) Platelet Count 123 x10^3/uL (140-400) Neutrophils (%) (Auto) 73 % (31-73) Lymphocytes (%) (Auto) 17 % (24-48) Monocytes (%) (Auto) 7 % (0-9) Eosinophils (%) (Auto) 1 % (0-3) Basophils (%) (Auto) 1 % (0-3) Neutrophils # (Auto) 3.9 x10^3/uL (1.8-7.7) Lymphocytes # (Auto) 0.9 x10^3/uL (1.0-4.8) Monocytes # (Auto) 0.4 x10^3/uL (0.0-1.1) Eosinophils # (Auto) 0.1 x10^3/uL (0.0-0.7) Basophils # (Auto) 0.1 x10^3/uL (0.0-0.2) Sodium Level 141 mmol/L (136-145) Potassium Level 3.4 mmol/L (3.5-5.1) Chloride Level 105 mmol/L (98-107) Carbon Dioxide Level 27 mmol/L (21-32) Anion Gap 9 (6-14) Blood Urea Nitrogen 15 mg/dL (8-26) Creatinine 0.9 mg/dL (0.7-1.3) Estimated GFR (Cockcroft-Gault) 82.9 BUN/Creatinine Ratio 17 (6-20) Glucose Level 72 mg/dL (70-99) Calcium Level 8.3 mg/dL (8.5-10.1) Total Bilirubin 1.1 mg/dL (0.2-1.0) Aspartate Amino Transf (AST/SGOT) 12 U/L (15-37) Alanine Aminotransferase (ALT/SGPT) 25 U/L (16-63) Alkaline Phosphatase 128 U/L (46-116) Total Protein 6.4 g/dL (6.4-8.2) Albumin 2.5 g/dL (3.4-5.0) Albumin/Globulin Ratio 0.6 (1.0-1.7) Objective: Assessment: IMPRESSION: 1. E coli sepsis. Origin of the Gram-negative sepsis is unclear. 2. Fever and chills. 3. Nausea and vomiting. 4. Abdominal discomfort. 5. Gastroesophageal reflux disease. 6. Arthritis. Plan: Plan of Care covid neg ct noted cont EDIILA Mai MD Dec 25, 2019 09:03
[2019-12-25 10:48] VITALS: BP 159/90
--- NOTE | 2019-12-25 11:41 | PDOC ---
Date of Service: DATE: 12/25/19 TIME: 11:35 Subjective: Subjective: Tolerating clear liquids w/o n/v. No abd pain. A few loose stools. Would like more to eat. Reviewed - he did have LUQ pain prior to admission. Objective: Vital Signs: Vital Signs Date Time Temp Pulse Resp B/P (MAP) Pulse Ox O2 Delivery O2 Flow Rate FiO2 12/25/19 10:48 98.1 68 18 159/90 (113) 92 Room Air 98.1 12/24/19 22:02 2.0 Labs: Laboratory Tests Test 12/24/19 12:25 White Blood Count 5.3 x10^3/uL Red Blood Count 4.51 x10^6/uL Hemoglobin 13.8 g/dL Hematocrit 42.0 % Mean Corpuscular Volume 93 fL Mean Corpuscular Hemoglobin 31 pg Mean Corpuscular Hemoglobin Concent 33 g/dL Red Cell Distribution Width 14.0 % Platelet Count 123 x10^3/uL Neutrophils (%) (Auto) 73 % Lymphocytes (%) (Auto) 17 % Monocytes (%) (Auto) 7 % Eosinophils (%) (Auto) 1 % Basophils (%) (Auto) 1 % Neutrophils # (Auto) 3.9 x10^3/uL Lymphocytes # (Auto) 0.9 x10^3/uL Monocytes # (Auto) 0.4 x10^3/uL Eosinophils # (Auto) 0.1 x10^3/uL Basophils # (Auto) 0.1 x10^3/uL Sodium Level 141 mmol/L Potassium Level 3.4 mmol/L Chloride Level 105 mmol/L Carbon Dioxide Level 27 mmol/L Anion Gap 9 Blood Urea Nitrogen 15 mg/dL Creatinine 0.9 mg/dL Estimated GFR (Cockcroft-Gault) 82.9 BUN/Creatinine Ratio 17 Glucose Level 72 mg/dL Calcium Level 8.3 mg/dL Total Bilirubin 1.1 mg/dL Aspartate Amino Transf (AST/SGOT) 12 U/L Alanine Aminotransferase (ALT/SGPT) 25 U/L Alkaline Phosphatase 128 U/L Total Protein 6.4 g/dL Albumin 2.5 g/dL Albumin/Globulin Ratio 0.6 Imaging: CT A/P 12/22 IMPRESSION: 1. Inflammatory fat stranding identified about the pancreas likely acute pancreatitis. There are calcifications identified in the pancreas with the largest measuring 7 mm in the proximal body of the pancreas with dilated appearing pancreatic duct distal to this calcification. 2. Mild fat stranding identified about the urinary bladder. Correlate with lab values. 3. Sigmoid colon diverticulosis. 4. Minimal bibasilar lung atelectasis. PE: GEN: NAD LUNGS: CTAB HEART: RRR ABD: NABS, S/ND/NT NEURO/PSYCH: A & O 3 A/P: E coli bacteremia Vomiting - resolved Thrombocytopenia, mildly elevated LFTs and lipase Abnormal CT - pancreatitis, pancreatic calcifications, dilated PD H/o GERD, duodenal diverticulum, early satiety - on PPI; no previous EGD CRC screen - up to date (08/2017) Chronic pain COVID negative 12/20 -- ADAT. Change to PO PPI. CA19-9 pending. ?check MRCP - will d/w Dr. Aleman. Monitor stooling - check stool tests if indicated. Justicifation of Admission Dx: Justifications for Admission: Justification of Admission Dx: Yes ALEXA REN Dec 25, 2019 11:41
--- NOTE | 2019-12-25 12:20 | PDOC ---
[facility] PROGRESS NOTE Date of Service DOS: DATE: 12/25/19 TIME: 12:16 Chief Complaint Chief Complaint E. coli bacteremia - Sepsis - e. coli bacteremia Acute pancreatitis - with h/o chronic pancreatitis. Dilated pancreatic duct Hematemesis History of GERD History of psoriasis Mild lactic acidemia Mild malnutrition Thrombocytopenia likely due to bacteremia versus clumping Chronic pancreatitis with PD stone? Pending MRCP Appreciate ID recommendations Appreciate GI recommendations Pending CT abdomen pelvis continue IV Zosyn Pending further blood culture sensitivities Will obtain peripheral blood smear for thrombocytopenia Lovenox for DVT prophylaxis ADA diet Full code Discussed with RN and SW Disposition inpatient care, pending blood culture sensitivities Surrogate decision maker is self History of Present Illness History of Present Illness Mr Sahu is a 74-year-old gentleman, who came in with fever and chills. The patient had some nausea and vomiting, little stomach upset, maybe he may have seen some blood in the vomit. The patient's blood culture is positive with Gram-negative saba. The patient denies any nausea or vomiting now. The patient denies any chest pain or shortness of breath. Denies any abdominal pain right now. Denies any urinary symptoms or bowel symptoms. The patient had about 4 times this kind of symptoms happen in last 6 months and two times he went to the doctor and they did COVID, which was negative and the third time, it was mild, so he did not go to the doctor and fourth time now, he is here, which was the worst fever and chills. The patient has high temperature, max was 99.5 here. Blood pressure has been stable and of course the Gram-negative saba in the blood. The patient is on vanc and Zosyn 12/22:No acute events overnight. No more hematemesis. Patient feels better at this point. Patient currently evaluated by gastroenterology and thinks that there may be stone in the pancreatic duct that may be causing the sepsis. 12/23: No acute events overnight. No nausea vomiting or hematemesis. Abdominal pain has improved. No evidence of jaundice. Tolerating diet. Patient's chart, labs, images were reviewed and discussed with RN. Patient states that he had spent time in the tropics during [place] that could contribute to the etiology of his pancreatitis. Afebrile today. e. coli positive on blood cultures. His abdominal pain is improved. He actually had hamburger and shortcake for lunch and tolerated this well. Vitals/I&O Vitals/I&O: Vital Signs Date Time Temp Pulse Resp B/P (MAP) Pulse Ox O2 Delivery O2 Flow Rate FiO2 12/25/19 10:48 98.1 68 18 159/90 (113) 92 Room Air 98.1 12/24/19 22:02 2.0 I & O 12/24/19 12/24/19 12/25/19 15:00 23:00 07:00 Intake Total 740 ml 240 ml Balance 740 ml 240 ml Physical Exam Physical Exam: GENERAL: Alert and oriented gentleman, not in any distress. VITAL SIGNS: Stable HEENT: NAD. NECK: Supple, no JVP, no lymphadenopathy. LUNGS: Clear. HEART: S1, S2 regular. ABDOMEN: Benign. EXTREMITIES: No edema or cyanosis. SKIN: Unremarkable. NEUROLOGIC: The patient is alert, awake and appropriate. No focal neurologic deficit. The patient's cervical spine area where the injection was done, there are no signs of infection as well as before then, he had a knee injection done, which was unremarkable. Labs Labs: Laboratory Tests Test 12/24/19 12:25 White Blood Count 5.3 x10^3/uL (4.0-11.0) Red Blood Count 4.51 x10^6/uL (4.30-5.70) Hemoglobin 13.8 g/dL (13.0-17.5) Hematocrit 42.0 % (39.0-53.0) Mean Corpuscular Volume 93 fL (79-100) Mean Corpuscular Hemoglobin 31 pg (25-35) Mean Corpuscular Hemoglobin Concent 33 g/dL (31-37) Red Cell Distribution Width 14.0 % (11.5-14.5) Platelet Count 123 x10^3/uL (140-400) Neutrophils (%) (Auto) 73 % (31-73) Lymphocytes (%) (Auto) 17 % (24-48) Monocytes (%) (Auto) 7 % (0-9) Eosinophils (%) (Auto) 1 % (0-3) Basophils (%) (Auto) 1 % (0-3) Neutrophils # (Auto) 3.9 x10^3/uL (1.8-7.7) Lymphocytes # (Auto) 0.9 x10^3/uL (1.0-4.8) Monocytes # (Auto) 0.4 x10^3/uL (0.0-1.1) Eosinophils # (Auto) 0.1 x10^3/uL (0.0-0.7) Basophils # (Auto) 0.1 x10^3/uL (0.0-0.2) Sodium Level 141 mmol/L (136-145) Potassium Level 3.4 mmol/L (3.5-5.1) Chloride Level 105 mmol/L (98-107) Carbon Dioxide Level 27 mmol/L (21-32) Anion Gap 9 (6-14) Blood Urea Nitrogen 15 mg/dL (8-26) Creatinine 0.9 mg/dL (0.7-1.3) Estimated GFR (Cockcroft-Gault) 82.9 BUN/Creatinine Ratio 17 (6-20) Glucose Level 72 mg/dL (70-99) Calcium Level 8.3 mg/dL (8.5-10.1) Total Bilirubin 1.1 mg/dL (0.2-1.0) Aspartate Amino Transf (AST/SGOT) 12 U/L (15-37) Alanine Aminotransferase (ALT/SGPT) 25 U/L (16-63) Alkaline Phosphatase 128 U/L (46-116) Total Protein 6.4 g/dL (6.4-8.2) Albumin 2.5 g/dL (3.4-5.0) Albumin/Globulin Ratio 0.6 (1.0-1.7) Assessment and Plan Assessmemt and Plan Problems Medical Problems: (1) Fever Status: Acute Comment Review of Relevant I have reviewed the following items joel (where applicable) has been applied. Justifications for Admission Other Justification JESSICA CARRANZA MD Dec 25, 2019 12:20
[2019-12-25 15:16] VITALS: BP 145/95
[2019-12-25] MEDS: ENOXAPARIN 40 MG/0.4 ML SYRINGE. SQ SCH (16:43)
--- NOTE | 2019-12-25 18:02 | NUR ---
SW following. Spoke with RN and reviewed chart. Pt on room air. Pt COVID negative. Pt remains on IV abx. SW following.
[2019-12-25 19:03] VITALS: BP 146/91
[2019-12-25] MEDS: oxyCODONE/APAP 10/325 1 TAB TABLET PO PRN (21:43)
[2019-12-25 23:30] VITALS: BP 146/103
[2019-12-26] MEDS: PIPERACILLIN/TAZOBACTAM 3.375 GM in IV NORMAL SALINE 50ML 50 ML IV SCH ×3 (00:24→12:00)
[2019-12-26 04:00] VITALS: BP 142/92
[2019-12-26 04:21] LABS: BASO % 1 % (0-3); EOS # 0.2 x10^3/uL (0.0-0.7); EOS % 5 % (0-3); HEMATOCRIT 39.2 % (39.0-53.0); HEMOGLOBIN 13.3 g/dL (13.0-17.5); LYMPH # 1.4 x10^3/uL (1.0-4.8); LYMPH % 26 % (24-48); MEAN CORPUSCULAR HEMOGLOBIN 31 pg (25-35); MEAN CORPUSCULAR HGB CONC 34 g/dL (31-37); MEAN CORPUSCULAR VOLUME 93 fL (79-100); MONO # 0.7 x10^3/uL (0.0-1.1); MONO % 13 % (0-9); NEUT % 55 % (31-73); PLATELET COUNT 139 x10^3/uL (140-400); RED BLOOD COUNT 4.23 x10^6/uL (4.30-5.70); RED CELL DISTRIBUTION WIDTH 13.7 % (11.5-14.5); WHITE BLOOD COUNT 5.4 x10^3/uL (4.0-11.0)
[2019-12-26 04:51] LABS: ALBUMIN 2.4 g/dL (3.4-5.0); ALBUMIN/GLOBULIN RATIO 0.6 (1.0-1.7); CALCIUM 8.3 mg/dL (8.5-10.1); CREATININE 0.9 mg/dL (0.7-1.3); GFR 82.9; POTASSIUM 3.4 mmol/L (3.5-5.1); TOTAL BILIRUBIN 0.6 mg/dL (0.2-1.0); TOTAL PROTEIN 6.1 g/dL (6.4-8.2)
[2019-12-26 07:00] VITALS: BP 141/90
[2019-12-26] MEDS ORDERED: PANTOPRAZOLE 40 MG TABLET.DR. PO SCH (07:30)
--- NOTE | 2019-12-26 08:15 | PDOC ---
[facility] PROGRESS NOTE Date of Service DOS: DATE: 12/26/19 TIME: 08:15 Chief Complaint Chief Complaint E. coli bacteremia - Sepsis - e. coli bacteremia Acute pancreatitis - with h/o chronic pancreatitis. Dilated pancreatic duct Hematemesis History of GERD History of psoriasis Mild lactic acidemia Mild malnutrition Thrombocytopenia likely due to bacteremia versus clumping Chronic pancreatitis with PD stone? Pending MRCP Appreciate ID recommendations Appreciate GI recommendations Pending CT abdomen pelvis continue IV Zosyn Pending further blood culture sensitivities Will obtain peripheral blood smear for thrombocytopenia Lovenox for DVT prophylaxis ADA diet Full code Discussed with RN and SW Disposition inpatient care, pending blood culture sensitivities Surrogate decision maker is self History of Present Illness History of Present Illness Mr Sahu is a 74-year-old gentleman, who came in with fever and chills. The patient had some nausea and vomiting, little stomach upset, maybe he may have seen some blood in the vomit. The patient's blood culture is positive with Gram-negative saba. The patient denies any nausea or vomiting now. The patient denies any chest pain or shortness of breath. Denies any abdominal pain right now. Denies any urinary symptoms or bowel symptoms. The patient had about 4 times this kind of symptoms happen in last 6 months and two times he went to the doctor and they did COVID, which was negative and the third time, it was mild, so he did not go to the doctor and fourth time now, he is here, which was the worst fever and chills. The patient has high temperature, max was 99.5 here. Blood pressure has been stable and of course the Gram-negative saba in the blood. The patient is on vanc and Zosyn 12/22:No acute events overnight. No more hematemesis. Patient feels better at this point. Patient currently evaluated by gastroenterology and thinks that there may be stone in the pancreatic duct that may be causing the sepsis. 12/23: No acute events overnight. No nausea vomiting or hematemesis. Abdominal pain has improved. No evidence of jaundice. Tolerating diet. Patient's chart, labs, images were reviewed and discussed with RN. Patient states that he had spent time in the tropics during [place] that could contribute to the etiology of his pancreatitis. 12/24: Afebrile today. e. coli positive on blood cultures. His abdominal pain is improved. He actually had hamburger and shortcake for lunch and tolerated this well. Afebrile. K3.4. Final sensitivities to E. coli and blood available, pansensitive. NEG MARIANA 56 ESCHERICHIA COLI ANTIBIOTIC RESULT INTERPRETATION AMPICILLIN/SULBACTAM <=4/2 S AMIKACIN <=16 S AMPICILLIN <=8 S AMOXICILLIN/K CLAVULANATE <=8/4 S AZTREONAM <=4 S CEFTRIAXONE <=1 S CEFTAZIDIME <=1 S CEFOTAXIME <=2 S CEFOXITIN <=8 S CIPROFLOXACIN <=0.25 S CEFEPIME <=2 S CEFUROXIME <=4 S CEFTAZIDIME/AVIBACTAM <=4 S ERTAPENEM <=0.5 S GENTAMICIN <=2 S LEVOFLOXACIN <=0.5 S MEROPENEM <=1 S PIPERACILLIN/TAZOBACTAM <=8 S TRIMETHOPRIM/SULFAMETHOXAZOLE <=0.5/9.5 S TETRACYCLINE <=4 S TOBRAMYCIN <=2 S Unless otherwise specified, Testing Performed by: Vitals/I&O Vitals/I&O: Vital Signs Date Time Temp Pulse Resp B/P (MAP) Pulse Ox O2 Delivery O2 Flow Rate FiO2 12/26/19 04:00 98.5 66 16 142/92 (109) 94 Room Air 98.5 I & O 12/25/19 12/25/19 12/26/19 15:00 23:00 07:00 Intake Total 900 ml 300 ml Balance 900 ml 300 ml Physical Exam Physical Exam: GENERAL: Alert and oriented gentleman, not in any distress. VITAL SIGNS: Stable HEENT: NAD. NECK: Supple, no JVP, no lymphadenopathy. LUNGS: Clear. HEART: S1, S2 regular. ABDOMEN: Benign. EXTREMITIES: No edema or cyanosis. SKIN: Unremarkable. NEUROLOGIC: The patient is alert, awake and appropriate. No focal neurologic deficit. The patient's cervical spine area where the injection was done, there are no signs of infection as well as before then, he had a knee injection done, which was unremarkable. Labs Labs: Laboratory Tests Test 12/26/19 03:19 White Blood Count 5.4 x10^3/uL (4.0-11.0) Red Blood Count 4.23 x10^6/uL (4.30-5.70) Hemoglobin 13.3 g/dL (13.0-17.5) Hematocrit 39.2 % (39.0-53.0) Mean Corpuscular Volume 93 fL (79-100) Mean Corpuscular Hemoglobin 31 pg (25-35) Mean Corpuscular Hemoglobin Concent 34 g/dL (31-37) Red Cell Distribution Width 13.7 % (11.5-14.5) Platelet Count 139 x10^3/uL (140-400) Neutrophils (%) (Auto) 55 % (31-73) Lymphocytes (%) (Auto) 26 % (24-48) Monocytes (%) (Auto) 13 % (0-9) Eosinophils (%) (Auto) 5 % (0-3) Basophils (%) (Auto) 1 % (0-3) Neutrophils # (Auto) 3.0 x10^3/uL (1.8-7.7) Lymphocytes # (Auto) 1.4 x10^3/uL (1.0-4.8) Monocytes # (Auto) 0.7 x10^3/uL (0.0-1.1) Eosinophils # (Auto) 0.2 x10^3/uL (0.0-0.7) Basophils # (Auto) 0.0 x10^3/uL (0.0-0.2) Sodium Level 141 mmol/L (136-145) Potassium Level 3.4 mmol/L (3.5-5.1) Chloride Level 107 mmol/L (98-107) Carbon Dioxide Level 29 mmol/L (21-32) Anion Gap 5 (6-14) Blood Urea Nitrogen 12 mg/dL (8-26) Creatinine 0.9 mg/dL (0.7-1.3) Estimated GFR (Cockcroft-Gault) 82.9 BUN/Creatinine Ratio 13 (6-20) Glucose Level 137 mg/dL (70-99) Calcium Level 8.3 mg/dL (8.5-10.1) Total Bilirubin 0.6 mg/dL (0.2-1.0) Aspartate Amino Transf (AST/SGOT) 12 U/L (15-37) Alanine Aminotransferase (ALT/SGPT) 14 U/L (16-63) Alkaline Phosphatase 106 U/L (46-116) Total Protein 6.1 g/dL (6.4-8.2) Albumin 2.4 g/dL (3.4-5.0) Albumin/Globulin Ratio 0.6 (1.0-1.7) Assessment and Plan Assessmemt and Plan Problems Medical Problems: (1) Fever Status: Acute Comment Review of Relevant I have reviewed the following items joel (where applicable) has been applied. Justifications for Admission Other Justification JESSICA CARRANZA MD Dec 26, 2019 08:15
[2019-12-26] MEDS ORDERED: POTASSIUM CHLORIDE 20 MEQ TABLET.ER. PO ONE (08:30)
[2019-12-26] MEDS: GABAPENTIN 300 MG CAPSULE. PO SCH (08:56)
[2019-12-26] MEDS: CHOLECALCIFEROL (VITAMIN D3) 1,000 UNIT TABLET PO SCH (08:56)
[2019-12-26] MEDS: oxyCODONE/APAP 5/325 1 TAB TABLET PO PRN (08:56)
[2019-12-26] MEDS: LACTOBACILLUS RHAMNOSUS GG 1 CAPSULE. PO SCH (08:56)
[2019-12-26] MEDS: MULTIVITAMIN with MINERAL TABLET. PO SCH (08:57)
[2019-12-26] MEDS: DOCUSATE SODIUM 100 MG CAPSULE. PO SCH (08:59)
--- NOTE | 2019-12-26 10:26 | PDOC ---
Infectious Disease Note Subjective: Subjective pt is feeling better Been advanced on diet No fever, chills, nausea, vomiting, diarrhea, abdominal pain, symptoms Eager for discharge home today Vital Signs: Vital Signs Vital Signs Date Time Temp Pulse Resp B/P (MAP) Pulse Ox O2 Delivery O2 Flow Rate FiO2 12/26/19 07:00 98.2 65 18 141/90 (107) 93 Room Air 98.2 Physical Exam: PHYSICAL EXAM GENERAL: Alert and oriented gentleman, not in any distress. VITAL SIGNS: Stable HEENT: NAD. NECK: Supple, no JVP, no lymphadenopathy. LUNGS: Clear. HEART: S1, S2 regular. ABDOMEN: Soft bowel sounds present nontender nondistended no rebound no guarding EXTREMITIES: No edema or cyanosis. SKIN: Unremarkable. NEUROLOGIC: The patient is alert, awake and appropriate. No focal neurologic deficit. The patient's cervical spine area where the injection was done, there are no signs of infection as well as before then, he had a knee injection done, which was unremarkable. Medications: Inpatient Meds: Current Medications Medications (Trade) Dose Ordered Sig/Jourdan Start Time Stop Time Status Last Admin Dose Admin Acetaminophen (Tylenol) 650 mg PRN Q4HRS PRN 12/21/19 20:30 12/22/19 20:29 DC 12/22/19 03:06 650 MG Docusate Sodium (Colace) 100 mg BID 12/22/19 21:00 12/25/19 21:34 100 MG Enoxaparin Sodium (Lovenox 40mg Syringe) 40 mg Q24H 12/22/19 16:00 12/25/19 16:43 40 MG Gabapentin (Neurontin) 300 mg BID 12/22/19 21:00 12/26/19 08:56 300 MG Ibuprofen (Motrin) 400 mg PRN Q4HRS PRN 12/22/19 06:00 12/22/19 06:14 400 MG Info (CONTRAST GIVEN -- Rx MONITORING) 1 each PRN DAILY PRN 12/23/19 11:45 12/25/19 11:44 DC Iohexol (Omnipaque 240 Mg/ml) 30 ml 1X ONCE 12/23/19 11:45 12/23/19 11:46 DC Iohexol (Omnipaque 300 Mg/ml) 75 ml 1X ONCE 12/23/19 11:45 12/23/19 11:46 DC Lactobacillus Rhamnosus (Culturelle) 1 cap BID 12/23/19 21:00 12/26/19 08:56 1 CAP Multivitamins (Thera M Plus) 1 tab DAILY 12/22/19 14:00 12/23/19 08:55 1 TAB Naproxen (Naprosyn) 500 mg PRN BID PRN 12/22/19 13:00 12/22/19 13:42 500 MG Ondansetron HCl (Zofran) 4 mg PRN Q8HRS PRN 12/21/19 20:30 12/22/19 20:29 DC 12/22/19 14:55 4 MG Oxycodone/ Acetaminophen (Percocet 10/325) 1 tab HS PRN 12/23/19 19:30 12/25/19 21:43 1 TAB Oxycodone/ Acetaminophen (Percocet 5/325) 1 tab 1X ONCE 12/22/19 23:15 12/22/19 23:16 DC 12/22/19 23:13 1 TAB Pantoprazole Sodium (PROTONIX VIAL for IV PUSH) 40 mg DAILYAC 12/23/19 07:30 12/25/19 11:43 DC 12/25/19 08:44 40 MG Pantoprazole Sodium (Protonix) 40 mg DAILYAC 12/26/19 07:30 12/26/19 08:56 40 MG Piperacillin Sod/ Tazobactam Sod (Zosyn Per Pharmacy) 1 each PRN DAILY PRN 12/22/19 08:30 Piperacillin Sod/ Tazobactam Sod 3.375 gm/Sodium Chloride 50 ml @ 100 mls/hr Q6HRS 12/22/19 09:00 12/26/19 06:36 100 MLS/HR Potassium Chloride (Klor-Con) 40 meq 1X ONCE 12/26/19 08:30 12/26/19 08:31 DC 12/26/19 08:56 40 MEQ Sodium Chloride 1,000 ml @ 125 mls/hr Q8H 12/21/19 20:19 12/22/19 20:18 DC 12/22/19 12:19 125 MLS/HR Vancomycin HCl (Vanco Per Pharmacy) 1 each PRN DAILY PRN 12/22/19 08:30 12/22/19 11:36 DC Vancomycin HCl 1.75 gm/Sodium Chloride 500 ml @ 250 mls/hr 1X ONCE 12/22/19 09:30 12/22/19 11:29 DC 12/22/19 09:52 250 MLS/HR Vitamin D (Vitamin D3) 1,000 unit DAILY 12/22/19 14:00 12/26/19 08:56 1,000 UNIT Labs: Lab Laboratory Tests Test 12/26/19 03:19 White Blood Count 5.4 x10^3/uL (4.0-11.0) Red Blood Count 4.23 x10^6/uL (4.30-5.70) Hemoglobin 13.3 g/dL (13.0-17.5) Hematocrit 39.2 % (39.0-53.0) Mean Corpuscular Volume 93 fL (79-100) Mean Corpuscular Hemoglobin 31 pg (25-35) Mean Corpuscular Hemoglobin Concent 34 g/dL (31-37) Red Cell Distribution Width 13.7 % (11.5-14.5) Platelet Count 139 x10^3/uL (140-400) Neutrophils (%) (Auto) 55 % (31-73) Lymphocytes (%) (Auto) 26 % (24-48) Monocytes (%) (Auto) 13 % (0-9) Eosinophils (%) (Auto) 5 % (0-3) Basophils (%) (Auto) 1 % (0-3) Neutrophils # (Auto) 3.0 x10^3/uL (1.8-7.7) Lymphocytes # (Auto) 1.4 x10^3/uL (1.0-4.8) Monocytes # (Auto) 0.7 x10^3/uL (0.0-1.1) Eosinophils # (Auto) 0.2 x10^3/uL (0.0-0.7) Basophils # (Auto) 0.0 x10^3/uL (0.0-0.2) Sodium Level 141 mmol/L (136-145) Potassium Level 3.4 mmol/L (3.5-5.1) Chloride Level 107 mmol/L (98-107) Carbon Dioxide Level 29 mmol/L (21-32) Anion Gap 5 (6-14) Blood Urea Nitrogen 12 mg/dL (8-26) Creatinine 0.9 mg/dL (0.7-1.3) Estimated GFR (Cockcroft-Gault) 82.9 BUN/Creatinine Ratio 13 (6-20) Glucose Level 137 mg/dL (70-99) Calcium Level 8.3 mg/dL (8.5-10.1) Total Bilirubin 0.6 mg/dL (0.2-1.0) Aspartate Amino Transf (AST/SGOT) 12 U/L (15-37) Alanine Aminotransferase (ALT/SGPT) 14 U/L (16-63) Alkaline Phosphatase 106 U/L (46-116) Total Protein 6.1 g/dL (6.4-8.2) Albumin 2.4 g/dL (3.4-5.0) Albumin/Globulin Ratio 0.6 (1.0-1.7) Objective: Assessment: 1. E coli sepsis. Origin of the Gram-negative sepsis is unclear.Likely GI 2. Fever and chills.Resolved 3. Nausea and vomiting.improving 4. Abdominal discomfort. CT revealed acute pancreatitis with dilated duct 5. Gastroesophageal reflux disease. 6. Arthritis. Plan: Plan of Care Okay to discharge home on p.o. Cipro for 10 days Probiotics Discussed with EDILIA Yanez MD Dec 26, 2019 10:26
[2019-12-26 11:00] VITALS: BP 145/91
--- NOTE | 2019-12-26 11:15 | PDOC ---
Date of Service: DATE: 12/26/19 TIME: 11:12 Subjective: Subjective: Tolerating diet w/o n/v, no abd pain, stooling normally. Would like to go home. Interested in outpt EGD for early satiety. Objective: Vital Signs: Vital Signs Date Time Temp Pulse Resp B/P (MAP) Pulse Ox O2 Delivery O2 Flow Rate FiO2 12/26/19 08:00 Room Air 12/26/19 07:00 98.2 65 18 141/90 (107) 93 98.2 Labs: Laboratory Tests Test 12/26/19 03:19 White Blood Count 5.4 x10^3/uL Red Blood Count 4.23 x10^6/uL Hemoglobin 13.3 g/dL Hematocrit 39.2 % Mean Corpuscular Volume 93 fL Mean Corpuscular Hemoglobin 31 pg Mean Corpuscular Hemoglobin Concent 34 g/dL Red Cell Distribution Width 13.7 % Platelet Count 139 x10^3/uL Neutrophils (%) (Auto) 55 % Lymphocytes (%) (Auto) 26 % Monocytes (%) (Auto) 13 % Eosinophils (%) (Auto) 5 % Basophils (%) (Auto) 1 % Neutrophils # (Auto) 3.0 x10^3/uL Lymphocytes # (Auto) 1.4 x10^3/uL Monocytes # (Auto) 0.7 x10^3/uL Eosinophils # (Auto) 0.2 x10^3/uL Basophils # (Auto) 0.0 x10^3/uL Sodium Level 141 mmol/L Potassium Level 3.4 mmol/L Chloride Level 107 mmol/L Carbon Dioxide Level 29 mmol/L Anion Gap 5 Blood Urea Nitrogen 12 mg/dL Creatinine 0.9 mg/dL Estimated GFR (Cockcroft-Gault) 82.9 BUN/Creatinine Ratio 13 Glucose Level 137 mg/dL Calcium Level 8.3 mg/dL Total Bilirubin 0.6 mg/dL Aspartate Amino Transf (AST/SGOT) 12 U/L Alanine Aminotransferase (ALT/SGPT) 14 U/L Alkaline Phosphatase 106 U/L Total Protein 6.1 g/dL Albumin 2.4 g/dL Albumin/Globulin Ratio 0.6 PE: GEN: NAD LUNGS: CTAB HEART: RRR ABD: NABS, S/ND/NT NEURO/PSYCH: A & O 3 A/P: E coli bacteremia Thrombocytopenia (better), mildly elevated LFTs (resolved) and lipase Abnormal CT - pancreatitis, pancreatic calcifications, dilated PD H/o GERD, duodenal diverticulum, early satiety - on PPI; no previous EGD S/p cholecystectomy Chronic pain COVID negative 12/20 -- ADAT. DC per primary. Our office will arrange outpt EGD and MRCP w/ possible ERCP at [facility] pending results. Continue PPI. Justicifation of Admission Dx: Justifications for Admission: Justification of Admission Dx: Yes ALEXA REN Dec 26, 2019 11:15
[2019-12-26] MEDS ORDERED: LACT1CAP19 PO (12:16)
[2019-12-26] MEDS ORDERED: CIPR500T PO (12:16)
--- NOTE | 2019-12-26 12:20 | PDOC3 ---
Discharge Summary Visit Information Date of Admission: Dec 21, 2019 Date of Discharge: Dec 26, 2019 Admitting Diagnosis: Sepsis Final Diagnosis Problems Medical Problems: (1) Fever Status: Acute Brief Hospital Course Allergies Allergies Coded Allergies Type Severity Reaction Last Updated Verified No Known Drug Allergies 12/31/16 No Vital Signs Vital Signs Date Time Temp Pulse Resp B/P (MAP) Pulse Ox O2 Delivery O2 Flow Rate FiO2 12/26/19 11:00 98.4 81 18 145/91 (109) 94 Room Air 98.4 Lab Results Laboratory Tests Test 12/24/19 12:25 12/26/19 03:19 White Blood Count 5.3 x10^3/uL (4.0-11.0) 5.4 x10^3/uL (4.0-11.0) Red Blood Count 4.51 x10^6/uL (4.30-5.70) 4.23 x10^6/uL (4.30-5.70) Hemoglobin 13.8 g/dL (13.0-17.5) 13.3 g/dL (13.0-17.5) Hematocrit 42.0 % (39.0-53.0) 39.2 % (39.0-53.0) Mean Corpuscular Volume 93 fL (79-100) 93 fL (79-100) Mean Corpuscular Hemoglobin 31 pg (25-35) 31 pg (25-35) Mean Corpuscular Hemoglobin Concent 33 g/dL (31-37) 34 g/dL (31-37) Red Cell Distribution Width 14.0 % (11.5-14.5) 13.7 % (11.5-14.5) Platelet Count 123 x10^3/uL (140-400) 139 x10^3/uL (140-400) Neutrophils (%) (Auto) 73 % (31-73) 55 % (31-73) Lymphocytes (%) (Auto) 17 % (24-48) 26 % (24-48) Monocytes (%) (Auto) 7 % (0-9) 13 % (0-9) Eosinophils (%) (Auto) 1 % (0-3) 5 % (0-3) Basophils (%) (Auto) 1 % (0-3) 1 % (0-3) Neutrophils # (Auto) 3.9 x10^3/uL (1.8-7.7) 3.0 x10^3/uL (1.8-7.7) Lymphocytes # (Auto) 0.9 x10^3/uL (1.0-4.8) 1.4 x10^3/uL (1.0-4.8) Monocytes # (Auto) 0.4 x10^3/uL (0.0-1.1) 0.7 x10^3/uL (0.0-1.1) Eosinophils # (Auto) 0.1 x10^3/uL (0.0-0.7) 0.2 x10^3/uL (0.0-0.7) Basophils # (Auto) 0.1 x10^3/uL (0.0-0.2) 0.0 x10^3/uL (0.0-0.2) Sodium Level 141 mmol/L (136-145) 141 mmol/L (136-145) Potassium Level 3.4 mmol/L (3.5-5.1) 3.4 mmol/L (3.5-5.1) Chloride Level 105 mmol/L (98-107) 107 mmol/L (98-107) Carbon Dioxide Level 27 mmol/L (21-32) 29 mmol/L (21-32) Anion Gap 9 (6-14) 5 (6-14) Blood Urea Nitrogen 15 mg/dL (8-26) 12 mg/dL (8-26) Creatinine 0.9 mg/dL (0.7-1.3) 0.9 mg/dL (0.7-1.3) Estimated GFR (Cockcroft-Gault) 82.9 82.9 BUN/Creatinine Ratio 17 (6-20) 13 (6-20) Glucose Level 72 mg/dL (70-99) 137 mg/dL (70-99) Calcium Level 8.3 mg/dL (8.5-10.1) 8.3 mg/dL (8.5-10.1) Total Bilirubin 1.1 mg/dL (0.2-1.0) 0.6 mg/dL (0.2-1.0) Aspartate Amino Transf (AST/SGOT) 12 U/L (15-37) 12 U/L (15-37) Alanine Aminotransferase (ALT/SGPT) 25 U/L (16-63) 14 U/L (16-63) Alkaline Phosphatase 128 U/L (46-116) 106 U/L (46-116) Total Protein 6.4 g/dL (6.4-8.2) 6.1 g/dL (6.4-8.2) Albumin 2.5 g/dL (3.4-5.0) 2.4 g/dL (3.4-5.0) Albumin/Globulin Ratio 0.6 (1.0-1.7) 0.6 (1.0-1.7) Laboratory Tests Test 12/26/19 03:19 White Blood Count 5.4 x10^3/uL (4.0-11.0) Red Blood Count 4.23 x10^6/uL (4.30-5.70) Hemoglobin 13.3 g/dL (13.0-17.5) Hematocrit 39.2 % (39.0-53.0) Mean Corpuscular Volume 93 fL (79-100) Mean Corpuscular Hemoglobin 31 pg (25-35) Mean Corpuscular Hemoglobin Concent 34 g/dL (31-37) Red Cell Distribution Width 13.7 % (11.5-14.5) Platelet Count 139 x10^3/uL (140-400) Neutrophils (%) (Auto) 55 % (31-73) Lymphocytes (%) (Auto) 26 % (24-48) Monocytes (%) (Auto) 13 % (0-9) Eosinophils (%) (Auto) 5 % (0-3) Basophils (%) (Auto) 1 % (0-3) Neutrophils # (Auto) 3.0 x10^3/uL (1.8-7.7) Lymphocytes # (Auto) 1.4 x10^3/uL (1.0-4.8) Monocytes # (Auto) 0.7 x10^3/uL (0.0-1.1) Eosinophils # (Auto) 0.2 x10^3/uL (0.0-0.7) Basophils # (Auto) 0.0 x10^3/uL (0.0-0.2) Sodium Level 141 mmol/L (136-145) Potassium Level 3.4 mmol/L (3.5-5.1) Chloride Level 107 mmol/L (98-107) Carbon Dioxide Level 29 mmol/L (21-32) Anion Gap 5 (6-14) Blood Urea Nitrogen 12 mg/dL (8-26) Creatinine 0.9 mg/dL (0.7-1.3) Estimated GFR (Cockcroft-Gault) 82.9 BUN/Creatinine Ratio 13 (6-20) Glucose Level 137 mg/dL (70-99) Calcium Level 8.3 mg/dL (8.5-10.1) Total Bilirubin 0.6 mg/dL (0.2-1.0) Aspartate Amino Transf (AST/SGOT) 12 U/L (15-37) Alanine Aminotransferase (ALT/SGPT) 14 U/L (16-63) Alkaline Phosphatase 106 U/L (46-116) Total Protein 6.1 g/dL (6.4-8.2) Albumin 2.4 g/dL (3.4-5.0) Albumin/Globulin Ratio 0.6 (1.0-1.7) Brief Hospital Course Mr Sahu is a 74-year-old who came in with fever and chills. The patient had some nausea and vomiting, little stomach upset, maybe he may have seen some blood in the vomit. The patient's blood culture is positive with Gram-negative saba. The patient denies any nausea or vomiting now. The patient denies any chest pain or shortness of breath. Denies any abdominal pain right now. Denies any urinary symptoms or bowel symptoms. The patient had about 4 times this kind of symptoms happen in last 6 months and two times he went to the doctor and they did COVID, which was negative and the third time, it was mild, so he did not go to the doctor and fourth time now, he is here, which was the worst fever and chills. The patient has high temperature, max was 99.5 here. Blood pressure has been stable and of course the Gram-negative saba in the blood. The patient is on vanc and Zosyn 12/22:No acute events overnight. No more hematemesis. Patient feels better at this point. Patient currently evaluated by gastroenterology and thinks that there may be stone in the pancreatic duct that may be causing the sepsis. 12/23: No acute events overnight. No nausea vomiting or hematemesis. Abdominal pain has improved. No evidence of jaundice. Tolerating diet. Patient's chart, labs, images were reviewed and discussed with RN. Patient states that he had spent time in the tropics during [place] that could contribute to the etiology of his pancreatitis. 12/24: Afebrile today. e. coli positive on blood cultures. His abdominal pain is improved. He actually had hamburger and shortcake for lunch and tolerated this well. Afebrile. K3.4. Final sensitivities to E. coli and blood available, pansensitive. D/w ID to d/c on cipro. He has outpatient GI f/u and [facility] f/u as well Consults: GI, ID Problem list: E. coli bacteremia - Sepsis - e. coli bacteremia Acute pancreatitis - with h/o chronic pancreatitis. Dilated pancreatic duct Hematemesis History of GERD History of psoriasis Mild lactic acidemia Mild malnutrition Thrombocytopenia likely due to bacteremia versus clumping Chronic pancreatitis with PD stone? NEG MARIANA 56 ESCHERICHIA COLI ANTIBIOTIC RESULT INTERPRETATION AMPICILLIN/SULBACTAM <=4/2 S AMIKACIN <=16 S AMPICILLIN <=8 S AMOXICILLIN/K CLAVULANATE <=8/4 S AZTREONAM <=4 S CEFTRIAXONE <=1 S CEFTAZIDIME <=1 S CEFOTAXIME <=2 S CEFOXITIN <=8 S CIPROFLOXACIN <=0.25 S CEFEPIME <=2 S CEFUROXIME <=4 S CEFTAZIDIME/AVIBACTAM <=4 S ERTAPENEM <=0.5 S GENTAMICIN <=2 S LEVOFLOXACIN <=0.5 S MEROPENEM <=1 S PIPERACILLIN/TAZOBACTAM <=8 S TRIMETHOPRIM/SULFAMETHOXAZOLE <=0.5/9.5 S TETRACYCLINE <=4 S TOBRAMYCIN <=2 S Unless otherwise specified, Testing Performed by: Greater than 30 minutes spent on d/c Discharge Information Condition at Discharge: Improved Follow Up: Weeks Disposition/Orders: D/C to Home Scheduled Ciprofloxacin Hcl (Ciprofloxacin Hcl) 500 Mg Tablet, 1 TAB PO BID for E. coli bacteremia for 10 Days, #20 Prescribed by: JESSICA CARRANZA MD on 12/26/19 1216 Docusate Sodium (Colace) 100 Mg Capsule, 100 MG PO BID, #60 Prescribed by: MARYBETH JACOB on 12/31/16 1059 Last Action: Continued on 12/22/19 1255 by ELDON VINSON Gabapentin (Gabapentin ) 300 Mg Capsule, 300 MG PO BID for nerve pain, (Reported) Entered as Reported by: RENY LYONS on 06/25/17 1013 Last Action: Continued on 12/22/19 1255 by ELDON VINSON Lactobacillus Rhamnosus Gg (Culturelle) 1 Each Cap.alejandraink, 1 CAP PO BID for E. coli bacteremia for 10 Days, #20 Prescribed by: JESSICA CARRANZA MD on 12/26/19 1216 Multivitamin (Multi-Day Vitamins) 1 Each Tablet, 1 TAB PO DAILY, #30 (Reported) Entered as Reported by: POWER JEWELL on 03/30/16 143 Last Action: Converted on 12/22/19 125 by ELDON VINSON Omeprazole (Omeprazole) 20 Mg Capsule.dr, 2 CAP PO DAILY, #30 Ref 5 (Reported) Entered as Reported by: JEANNE GUPTA on 05/08/15 1004 Last Action: Converted on 12/22/191254 by ELDON VINSON Scheduled PRN Naproxen (Naproxen) 500 Mg Tablet.dr, 1 TAB PO BID PRN for PAIN, #60 Ref 2 (Reported) Entered as Reported by: POWER JEWELL on 03/30/161430 Last Action: Converted on 12/22/19 1255 by ELDON VINSON Oxycodone Hcl/Acetaminophen (Oxycodone-Acetaminophen 5-325) 1 Each Tablet, 1 EACH PO PRN Q6HRS PRN for PAIN, Ref 0 (Reported) Entered as Reported by: POWER JEWELL on 03/30/16 143 Last Action: Continued on 12/22/19 1255 by ELDON VINSON Miscellaneous Medications Cholecalciferol (Vitamin D3) (Vitamin D) 1,000 Unit Tablet, 1,000 UNIT PO, (Reported) Entered as Reported by: JEANNE GUPTA on 05/08/15 1004 Last Action: Continued on 12/22/19 1255 by ELDON VINSON Justicifation of Admission Dx: Justifications for Admission: Justification of Admission Dx: Yes JESSICA CARRANZA MD Dec 26, 2019 12:20
--- NOTE | 2019-12-26 14:15 | NUR ---
Discharge Note: BEV LE Discharge instructions and discharge home medications reviewed with Patient and a copy given. All questions have been answered and understanding verbalized. The following instructions and handouts were given: f/u with PCP within one week. Dr. Aleman office will contact you to schedule MRCP. Discontinued lines and drains: Peripheral IV intact. Patient discharged to Home or Self Care with Family Member via Wheelchair
--- NOTE | 2019-12-26 16:58 | NUR ---
SW following. Spoke with RN and reviewed chart. Pt to discharge home today on oral medications. No further SW needs.
== END 2019-12-26 14:15 | disposition home or self-care (01) | DRG 871 ==
LOC: ER 17:32 → 6 SOUTH 22:25
PROVIDERS: ADMIT Internal Medicine; ATTEND Internal Medicine
DX: A41.51 Sepsis due to Escherichia coli [E. coli] (principal); K85.90 Acute pancreatitis without necrosis or infection, unspecified; E44.1 Mild protein-calorie malnutrition; K80.30 Calculus of bile duct with cholangitis, unspecified, without obstruction; K86.1 Other chronic pancreatitis; K92.0 Hematemesis; Z20.828 Contact with and (suspected) exposure to other viral communicable diseases; D69.6 Thrombocytopenia, unspecified; E78.5 Hyperlipidemia, unspecified; G89.29 Other chronic pain; K21.9 Gastro-esophageal reflux disease without esophagitis; K57.50 Diverticulosis of both small and large intestine without perforation or abscess without bleeding; M19.90 Unspecified osteoarthritis, unspecified site; M48.061 Spinal stenosis, lumbar region without neurogenic claudication; M54.12 Radiculopathy, cervical region; M54.16 Radiculopathy, lumbar region; Z90.49 Acquired absence of other specified parts of digestive tract; K57.90 Diverticulosis of intestine, part unspecified, without perforation or abscess without bleeding
CPT/HCPCS: 36415; 71045; 71260; 74177; 80048; 80053; 81001; 82550; 83605; 83615; 83690; 83735; 84100; 84145; 84466; 84484; 85007; 85025; 85379; 85610; 85730; 86140; 86301; 87040; 87077; 87186; 87205; 93005; 96365; 96375; 99285; C9113; J1650; J2405; J2543; J3370; J7030; J7040; G0378; U0003-CS

== ENCOUNTER → 2020-01-04 | Outpatient (CLI) | payer MEDICARE, OTHER ==
[2019-12-26 11:00] VITALS: BP 145/91
[~2020-01-04] MED LIST changes: +CIPR500T PO; +LACT1CAP19 PO
--- NOTE | 2020-01-04 13:39 | RAD ---
INDICATION: Reason: PANCREATITIS, PANCREATIC CLACIFICATIONS, DILATED PANCREATIC DUCT / Spl. Instructions: / History: COMPARISON: December 23, 2019 TECHNIQUE: Multiplanar, multisequence MRI images are obtained through the abdomen including three-dimensional MRCP images. FINDINGS: Repeat demonstration of duodenal diverticulum. Repeat demonstration of dilatation of the pancreatic duct which measures up to about 11 mm with some distal atrophy. Interval decrease in the amount of edema and the area. The common bile duct measures up to about 7 mm. At the pancreatic head region there is a T2 hyperintense lesion measuring approximately 6 mm which appears to connect with the duct. Hiatal hernia. Spleen is not enlarged. No hydronephrosis. Postcholecystectomy. No dilated loops of bowel in the upper abdomen to suggest obstruction. Degenerative changes the spine is not formally evaluated. Colonic diverticulosis. IMPRESSION: * Persistent dilation of the pancreatic duct is again seen with sharp cutoff this is in the same location as prior CT and on that examination there is a large calcification at the duct. Could be sequela of chronic pancreatitis with a stone within the duct but given the more distal atrophy a lesion or stricture at this site is not excluded on this exam. * More proximally within the pancreas there is a suspected T2 hyperintense lesions seen. Differential considerations would include pseudocyst or intraductal papillary mucinous neoplasm. * Interval decrease in the amount of edema adjacent to the pancreas when compared to prior CT. Electronically signed by: Emmanuel Roque MD (01/04/2020 1:35 PM) [id number]
== END | disposition home or self-care (01) ==
LOC: MRI 10:06
PROVIDERS: ATTEND Internal Medicine Gastroenterology
DX: K86.1 Other chronic pancreatitis (principal); K57.30 Diverticulosis of large intestine without perforation or abscess without bleeding; K57.10 Diverticulosis of small intestine without perforation or abscess without bleeding; K86.89 Other specified diseases of pancreas
CPT/HCPCS: 74181

== ENCOUNTER → 2020-01-29 | Outpatient (CLI) | payer MEDICARE, OTHER ==
--- NOTE | 2020-01-29 10:50 | KCIC ---
UPPER GI WO KUB Indication: Reason: Paraesophageal hernia / Spl. Instructions: FT 4:06, IMG 39 / History: . Comparison: April 03, [address] December 23, 2019 Technique: A preliminary medical staff services coordinator radiograph of the abdomen was first obtained. Then utilizing air contrast technique with both single contrast and double contrast barium preparations, evaluation of the distal esophagus, stomach, and duodenum was performed in the upright, supine, and prone positions. Fluoroscopic time: 4 minutes 6 seconds Number of fluoroscopic images: 39 Findings: Large paraesophageal hernia containing most of the stomach. Widely patent gastroesophageal junction. No stricture or obstruction identified. Contrast empties into the duodenum. Large amount of gastroesophageal reflux was identified throughout the examination. Duodenal diverticulum. Normal esophageal motility. IMPRESSION: 1. Large paraesophageal hernia with large amount of gastroesophageal reflux. 2. Duodenal diverticulum. Electronically signed by: Francisco Cha DO (01/29/2020 10:48 AM) [id number]
== END ==
LOC: KCIC 09:42
PROVIDERS: ATTEND Internal Medicine Gastroenterology
DX: K44.9 Diaphragmatic hernia without obstruction or gangrene (principal); K21.9 Gastro-esophageal reflux disease without esophagitis; K57.10 Diverticulosis of small intestine without perforation or abscess without bleeding
CPT/HCPCS: 74240

== ENCOUNTER → 2020-02-22 | Outpatient (CLI) | payer MEDICARE, OTHER ==
[~2020-02-22] MED LIST changes: +HYDR-2761 PO; +IOHEXOL 180 MG/ML 10 ML VIAL. ONE; +methylPREDNISolone ACETATE 40 MG/ML VIAL. ONE; +methylPREDNISolone ACETATE 80 MG/ML VIAL. ONE
--- NOTE | 2020-02-22 08:21 | PDOC ---
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 Patient rep orts worse with activity standing walking changing positions using his upper extremities and repetitive motions or lifting or weightbearing also rotational motion of the cervical spine such as with driving patient reports is aching sharp at times can be more constant becoming more constant beginning awaken him from sleep at night or initially was doing much better with doing distance walking household activities traveling with greater ease and comfort and sleeping better he is beginning to return now. She reports no new motor or sensory deficits or other complaints. Patient is still in seeing his chiropractor which is only temporarily. Physical Exam: VS: Blood pressure is 140/90 pulse 74 respirations 18 temperature is 98.2 F height is 5 feet 8 inches weight is 165 pounds PE: PHYSICAL EXAMINATION: GENERAL: The patient is awake, alert, oriented, appropriate, very pleasant demeanor HEENT: Shows normocephalic, atraumatic. Extraocular movements are intact and symmetrical. Oral cavity: Mucous membranes moist and pink. NECK: Shows anterior throat supple without palpable lymphadenopathy noted. Swallow reflex symmetrical. CHEST: Shows normal on inspection. Breath sounds are clear bilaterally, no rales rhonchi wheezes auscultated. HEART: Shows S1, S2 clear. No murmurs auscultated. ABDOMEN: Soft, nontender, nondistended, obese. No palpable organomegaly is noted. No rebound or guarding demonstrated. BACK: Shows spine grossly in the midline. Normal-appearing cervical lordotic curvature. Cervical paraspinous muscles show symmetrical on inspection with palpation some mild tenderness diffusely in the inferior aspect of the cervical paraspinous musculature bilaterally but only diffusely without significant radi ation without trigger points without asymmetry. Patient shows good rotation motion cervical spine both laterally greater than 45 degrees right and left closer to 90 degrees as well as full extension full forward flexion without significant limitation. There is slightly increased thoracic kyphosis, some minor flattening of the lumbar lordotic curvature. Lumbar paraspinous muscles show symmetrical on inspection, on palpation shows some moderate tenderness diffusely throughout the upper, middle and lower distribution of the paraspinous muscles without specific trigger points, without radiation of pain. The patient has good rotational motion of the lumbar spine, both laterally as well as extension and flexion without significant difficulty. No tenderness over the spinous processes, sacrum or sacroiliac regions. EXTREMITIES: Upper extremities show deep tendon reflexes 2+ in the biceps and triceps tendons. Motor exam is 5 on a scale of 5 with right strength, biceps and triceps flexion and 4/5 on the left. Peripheral pulses are 2+ radial . No peripheral edema is noted bilaterally. Upper extremities are warm and dry to touch, equal in color and appearance. Shoulder shrug is strong and intact without loss of strength on resistance bilaterally as is abduction of the shoulder 90 degrees bilaterally. SKIN: Shows warm and dry, good turgor. No edema. No sores, rashes or bruising throughout. Procedure: Procedure: Options were discussed with the patient. Patient will chart reviews his current medication regimen updated current review of systems updated today as well. We will proceed with a third in the series cervical epidural steroid injection today with fluoroscopic guidance. Risks were discussed including but not limited to: Bleeding, infection, possibility of epidural hematoma and subsequent neurological compromise, dural puncture, headaches, spinal cord and/or nerve damage, side effects of steroid medication, and poor results regarding pain control. Patient understands wished to proceed. Patient will return to the clinic in possibly 2 weeks for follow-up, was counseled as to return appointment activity level and side effects to be aware of. Medication Injected: Med Injected: Procedure cervical epidural steroid injection at the C6-7 level, using local anesthetic under sterile prep and drape using C-arm fluoroscopic guidance under local anesthesia medications injected ; 120 mg Depo-Medrol + 5 mL normal saline and 2 mL contrast; condition at discharge is stable patient tolerated procedure well. and had no complications Condition at Discharge: Condition at Discharge: Condition at discharge is stable patient tolerated procedure well and had no complications. FREDDY ROTH MD Feb 22, 2020 08:21
== END ==
LOC: PNCL 07:30
PROVIDERS: ATTEND Anesthesiology
DX: M50.123 Cervical disc disorder at C6-C7 level with radiculopathy (principal); M51.16 Intervertebral disc disorders with radiculopathy, lumbar region; M48.061 Spinal stenosis, lumbar region without neurogenic claudication; M47.896 Other spondylosis, lumbar region; M47.897 Other spondylosis, lumbosacral region; E78.5 Hyperlipidemia, unspecified; K21.9 Gastro-esophageal reflux disease without esophagitis; Z87.891 Personal history of nicotine dependence; Z79.82 Long term (current) use of aspirin; Z79.899 Other long term (current) drug therapy
CPT/HCPCS: 62321; J1030; J1040; Q9965

== ENCOUNTER → 2021-07-16 | Outpatient (CLI) | payer MEDICARE, OTHER ==
[2020-03-13 11:01] VITALS: BP 121/75
[~2021-07-16] MED LIST changes: -CIPR500T PO; +CIPR500T2 PO; -IOHEXOL 180 MG/ML 10 ML VIAL. ONE; -methylPREDNISolone ACETATE 40 MG/ML VIAL. ONE; -methylPREDNISolone ACETATE 80 MG/ML VIAL. ONE
--- NOTE | 2021-07-22 12:47 | PDOC ---
Progress Note - Pain Clinic Date of Service: DOS: DATE: 07/22/21 TIME: 12:46 Addendum for patient visit July 16, 2021, information dictated on wrong patient's chart with different middle initial Diagnosis: Dx: Progress Note - Pain Clinic Date of Service: DOS: DATE: 07/16/21 TIME: 11:29 Diagnosis: Dx: Lumbar radiculopathy with lumbar degenerative disease lumbar spinal stenosis with lumbar spondylosis Cervical radiculopathy with cervical degenerative disc disease Left foot carpometacarpal osteoarthritis History or Present Illness: HPI: 83-year-old male returns for follow-up status post cervical epidural steroid injection last seen June 19, 2019 patient did very well with approximately 60% improvement overall pain in the base the neck and shoulders still more on the left than the right but present bilaterally patient reports that he was doing much better with distance walking doing household activities travel with greater ease and comfort sleeping better at night still sleeping without difficulty and about 8 hours without it awaken him from sleep patient reports the pain is returning on the base the neck and shoulders again more on the left than the right rated as a 7 on scale 10 is worst average and at its least describes aching and sharp can be constant with activity but again significantly improved since previous visit. Patient reports motor or sensory deficits or other complaints. Physical Exam: VS: Blood pressure is 160/110 pulse 77 respirations 18 temperature 98.2 F height 5 feet 8 inches weight 165 pounds. PE: PHYSICAL EXAMINATION: GENERAL: The patient is awake, alert, oriented, appropriate, very pleasant in demeanor HEENT: Shows normocephalic, atraumatic. Extraocular movements are intact and symmetrical. Oral cavity: Mucous membranes moist and pink. Dentition is intact. NECK: Shows anterior throat supple without palpable lymphadenopathy noted. Swallow reflex symmetrical. CHEST: Shows normal on inspection. Breath sounds are clear bilaterally, no rales or rhonchi. HEART: Shows S1, S2 clear. No murmurs auscultated. ABDOMEN: Soft, nontender, nondistended. No palpable organomegaly is noted. Well-healed surgical scarring noted BACK: Shows spine grossly in the midline. Normal-appearing cervical lordotic curvature. Cervical paraspinous muscles show symmetrical with inspection, palpation some moderate tenderness diffusely more on the left than the right inferior aspect the cervical paraspinous muscular as well as the superior medial trapezius bilaterally without trigger points or asymmetry. Patient shows full rotation motion cervical spine both laterally as well as full extension full forward flexion without significant increase in pain. There is slightly increased thoracic kyphosis, some minor flattening of the lumbar lordotic curvature. Lumbar paraspinous muscles show symmetrical on inspection, on palpation shows some moderate tenderness diffusely throughout the upper, middle and lower distribution of the paraspinous muscles without specific trigger points, without radiation of pain. The patient has good rotational motion of the lumbar spine, both laterally as well as extension and flexion without significant difficulty. No tenderness over the spinous processes, sacrum or sacroiliac regions. EXTREMITIES: Lower extremities show deep tendon reflexes 1+ in the patellar and tendo calcaneus tendons. Motor exam is 4 on a scale of 5 with right dorsiflexion, extension, quadriceps and hamstring flexion and 5/5 on the left. Peripheral pulses are 1+ posterior tibial. No peripheral edema is noted bilaterally. Lower extremities are warm and dry. Upper extremity show deep tendon reflexes 2+ in the bicep tricep tendons, motor exam is 4 scale 5 on the right and 5/5 on the left shoulder shrug strong intact without loss strength on resistance. Peripheral pulses are 2+ radial. SKIN: Shows warm and dry, good turgor. No edema. No sores, rashes or bruising throughout. Procedure: Procedure: Options were discussed with the patient. Patient's old heart was reviewed his current medication regimen updated current review of systems updated today as well. We will proceed with a cervical epidural steroid injection today with fluoroscopic guidance. Risks were discussed including but not limited to: Bleeding, infection, possibility of epidural hematoma and subsequent neurological compromise, dural puncture, headaches, spinal cord and/or nerve damage, side effects of steroid medication, and poor results regarding pain control. Patient understands and wished to proceed. Patient will return to the clinic in approximately 4 weeks for follow-up, was counseled as to return appointment, activity level, and side effects to be aware of. Medication Injected: Med Injected: Procedure cervical epidural steroid injection at the C6-7 level, using local anesthetic under sterile prep and drape using C-arm fluoroscopic guidance under local anesthesia medications injected ; 20 mg dexamethasone +5 mL normal saline and 2 mL contrast; condition at discharge is stable patient tolerated procedure well. and had no complications Condition at Discharge: Condition at Discharge: Condition at discharge is stable, patient tolerated the procedure well and had no complications. Physical Exam: PE: FREDDY ROTH MD Jul 22, 2021 12:47
--- NOTE | 2021-07-22 14:05 | FMN ---
PT PROBLEMS Correction to dictation patient's age should read 75 years old, not 83 years old. FREDDY ROTH MD Jul 22, 2021 14:05
--- NOTE | 2021-07-22 14:08 | FMN ---
PT PROBLEMS Patient date of should read 1945 FREDDY ROTH MD Jul 22, 2021 14:08
== END | disposition home or self-care (01) ==
LOC: PNCL 12:06
PROVIDERS: ATTEND Anesthesiology
DX: M50.10 Cervical disc disorder with radiculopathy, unspecified cervical region (principal); M54.12 Radiculopathy, cervical region; M51.16 Intervertebral disc disorders with radiculopathy, lumbar region; M48.061 Spinal stenosis, lumbar region without neurogenic claudication; M47.26 Other spondylosis with radiculopathy, lumbar region; M19.90 Unspecified osteoarthritis, unspecified site; E78.00 Pure hypercholesterolemia, unspecified; K21.9 Gastro-esophageal reflux disease without esophagitis; Z85.828 Personal history of other malignant neoplasm of skin; Z87.891 Personal history of nicotine dependence; Z79.899 Other long term (current) drug therapy; Z98.890 Other specified postprocedural states; Z72.89 Other problems related to lifestyle
CPT/HCPCS: 62321